=== PATIENT | male | born 1990 | race American Indian/Alaskan Native ===

== ENCOUNTER 2019-10-14 20:36 | Emergency (ER) | payer MEDICAID ==
[2019-10-14] MEDS ORDERED: cloNIDine 0.2 MG TAB PO ONE (21:00)
[2019-10-14 21:01] LABS: Basophils % (Auto) 0.6 % (0.0-1.8); Eosinophils # (Auto) 0.2 K/mm3 (0.0-0.4); Eosinophils % (Auto) 2.6 % (0.0-4.3); Hematocrit 31.7 % (35.5-45.6); Hemoglobin 10.7 gm/dl (11.8-15.2); Lymphocytes % (Auto) 12.5 % (13.4-35.0); Mean Corpuscular HGB Conc 34 % (32-34); Mean Corpuscular Volume 97 fl (84-94); Monocytes # (Auto) 0.8 K/mm3 (0.0-0.8); Monocytes % (Auto) 10.4 % (0.0-7.3); Platelet Count 175 K/mm3 (140-440); Red Blood Count 3.27 M/mm3 (3.65-5.03)
--- NOTE | 2019-10-14 21:05 | Emergency Department Report ---
ED General Adult HPI - General Chief complaint: Upper Respiratory Infection Stated complaint: COUGHING UP BLOOD Time Seen by Provider: 10/14/19 20:44 Source: patient, EMS Mode of arrival: Stretcher Limitations: No Limitations - History of Present Illness Initial comments: Mr. Trinh is a 29-year-old male with history of end-stage renal disease on hemodialysis Tuesday, pulmonary embolism, hypertension, tobacco dependence who presents with hemoptysis for several weeks. He was evaluated at [facility]. During that hospitalization he was diagnosed with pulmonary embolism. During evaluation at [place], pulmonary embolism was not seen. He was initially prescribed anticoagulation at [facility]. However this medication was discontinued for unknown reason. He plans to have intervention on pulmonary embolism on Tuesday. He is unable to name the procedure. Patient admits to being noncompliant with clonidine. He is trying to wean himself off of this medication. He notes that when he misses a dose of cl onidine that his blood pressure becomes severely elevated. He denies chest pain. He has AV fistula in the right upper extremity, Right forearm. AV fistula was removed from the left upper extremity due to previous infection. Consequently, patient states that we may insert peripheral IV access in that extremity. -: Gradual, week(s) (Several weeks) Consistency: constant Improves with: none Worsens with: none Associated Symptoms: cough, shortness of breath, other (Hemoptysis) Treatments Prior to Arrival: none - Related Data Previous Rx's Medication Instructions Recorded Last Taken Type Doxycycline Hyclate 100 mg PO BID 7 Days #14 tablet. 10/15/19 Unknown Rx Allergies Allergy/AdvReac Type Severity Reaction Status Date / Time No Known Allergies Allergy Unverified 10/14/19 20:55 ED Review of Systems ROS: Stated complaint: COUGHING UP BLOOD Other details as noted in HPI Comment: All other systems reviewed and negative Constitutional: denies: fever, malaise Respiratory: cough, shortness of breath. denies: wheezing Cardiovascular: denies: chest pain Gastrointestinal: denies: abdominal pain, nausea, vomiting ED Past Medical Hx - Past Medical History Previous Medical History?: Yes Hx Hypertension: Yes Hx Pulmonary Embolism: Yes Hx Renal Disease: Yes (Dialysys T, TH, Sat) - Surgical History Past Surgical History?: Yes Additional Surgical History: AV fistula - Family History Family history: hypertension - Social History Smoking Status: Current Every Day Smoker Substance Use Type: Marijuana - Medications Home Medications: Home Medications Medication Instructions Recorded Confirmed Last Taken Type Doxycycline Hyclate 100 mg PO BID 7 Days #14 tablet. 10/15/19 Unknown Rx ED Physical Exam - General Limitations: No Limitations General appearance: alert, in no apparent distress, other (Patient has emesis bag which contained bloody brownish sputum) - Head Head exam: Present: atraumatic, normocephalic - Eye Eye exam: Present: normal appearance - ENT ENT exam: Present: mucous membranes moist - Neck Neck exam: Present: normal inspection, full ROM - Respiratory Respiratory exam: Present: normal lung sounds bilaterally. Absent: respiratory distress, wheezes, rales, rhonchi - Cardiovascular Cardiovascular Exam: Present: normal rhythm, tachycardia. Absent: systolic murmur, diastolic murmur, rubs, gallop - GI/Abdominal GI/Abdominal exam: Present: soft, normal bowel sounds. Absent: distended, tenderness, guarding - Rectal Rectal exam: Present: deferred - Extremities Exam Extremities exam: Present: other (Right forearm: AV fistula positive thrill positive bruit,) - Neurological Exam Neurological exam: Present: alert, oriented X3 - Psychiatric Psychiatric exam: Present: normal affect, normal mood - Skin Skin exam: Present: warm, dry, intact, normal color. Absent: rash ED Course Vital Signs 10/14/19 10/14/19 10/14/19 20:49 21:13 23:20 Temperature 98.3 F Pulse Rate 110 H 104 H 108 H Respiratory 21 Rate Blood Pressure 202/128 209/154 Blood Pressure 190/138 [Left] O2 Sat by Pulse 97 Oximetry 10/14/19 23:37 Temperature Pulse Rate 89 Respiratory 15 Rate Blood Pressure Blood Pressure 196/122 [Left] O2 Sat by Pulse 98 Oximetry ED Medical Decision Making - Lab Data Result diagrams: 10/14/19 20:50 10/14/19 20:50 - Radiology Data Radiology results: report reviewed Chest radiograph 1 view: No acute cardiopulmonary abnormality CT angios chest: No CT evidence of pulmonary embolism, 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 Differential diagnosis includes: Pulmonary infarction due to PE, bronchiectasis, tuberculosis, malignancy, bronchitis, pneumonia CT angiogram of the chest did not reveal mass or infection. No pulmonary embolism to cause pulmonary infarction. I did see that patient had brownish sputum with mild hemoptysis. I strongly suspect acute bronchitis. 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 I suspect that he will have intervention at [facility] on this lesion. Mr. Trinh is discharged home. Repeat heart rate 94 bpm. Repeat blood pressure 179/110 after clonidine and labetalol. Critical care attestation.: If time is entered above; I have spent that time in minutes in the direct care of this critically ill patient, excluding procedure time. 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 Prescriptions: Doxycycline Hyclate 100 mg PO BID 7 Days #14 tablet.
--- NOTE | 2019-10-14 21:18 | XRay Report ---
CHEST 1 VIEW 10/14/2019 8:46 PM INDICATION / CLINICAL INFORMATION: hemoptysis. COMPARISON: None available. FINDINGS: SUPPORT DEVICES: None. HEART / MEDIASTINUM: No significant abnormality. LUNGS / PLEURA: No significant pulmonary or pleural abnormality. No pneumothorax. ADDITIONAL FINDINGS: No significant additional findings. IMPRESSION: No acute cardiopulmonary abnormality. Signer Name: Frankie Bishop MD Signed: 10/14/2019 9:13 PM Workstation Name: [id number]
[2019-10-14 21:32] LABS: Calcium 10.1 mg/dL (8.4-10.2)
[2019-10-14 23:37] VITALS: BP 196/122
--- NOTE | 2019-10-14 23:50 | Cat Scan Report ---
CTA CHEST WITH IV CONTRAST INDICATION / CLINICAL INFORMATION: hemoptysis dyspnea hx of pulmonary embolism. TECHNIQUE: Axial CT images were obtained through the chest after injection of 100 cc Omnipaque 350 milligrams pe rcent IV contrast. 3 plane MIP and/or 3D reconstructions were produced. All CT scans at this location are performed using CT dose reduction for ALARA by means of automated exposure control. COMPARISON: None available. FINDINGS: PULMONARY ARTERIES: Poor contrast enhancement of the pulmonary arterial system. THORACIC AORTA: No significant abnormality. HEART: No significant abnormality. CORONARY ARTERIES: No significant calcification. PLEURA: No pleural effusion. No pneumothorax. LYMPH NODES: Several enlarged lymph nodes are present involving the anterior mediastinum LUNGS: No acute air space or interstitial disease. ADDITIONAL FINDINGS: Occlusion of the superior vena cava with abundant collateral flow. Marked enlarg ement of the azygos system. UPPER ABDOMEN: Shrunken kidneys bilaterally. SKELETAL STRUCTURES: No significant osseous abnormality. IMPRESSION: 1. No CT evidence for pulmonary embolism. 2. Occlusion of the superior vena cava with abundant collateral flow Signer Name: Ag Christianson MD Signed: 10/14/2019 11:46 PM Workstation Name: [id number]
== END 2019-10-15 01:00 | disposition home or self-care (01) ==
LOC: ED 20:36
DX: I82.210 Acute embolism and thrombosis of superior vena cava (principal); J20.9 Acute bronchitis, unspecified; R04.2 Hemoptysis; I12.0 Hypertensive chronic kidney disease with stage 5 chronic kidney disease or end stage renal disease; N18.6 End stage renal disease; Z99.2 Dependence on renal dialysis; F17.200 Nicotine dependence, unspecified, uncomplicated; F12.10 Cannabis abuse, uncomplicated; Z86.711 Personal history of pulmonary embolism; Z79.01 Long term (current) use of anticoagulants
CPT/HCPCS: 36415; 71045; 71275; 80048; 85025; 96374; 99285; Q9967

== ENCOUNTER 2020-11-11 14:05 | Inpatient (IN) | payer MEDICAID ==
[2020-11-11] MEDS ORDERED: KETOROLAC 30 MG/1 ML INJ IV ONE (14:29)
[2020-11-11 15:35] LABS: Basophils # (Auto) 0.1 K/mm3 (0.0-0.1); Eosinophils # (Auto) 0.3 K/mm3 (0.0-0.4); Eosinophils % (Auto) 4.1 % (0.0-4.3); Hematocrit 22.9 % (35.5-45.6); Hemoglobin 7.8 gm/dl (11.8-15.2); Lymphocytes # (Auto) 0.9 K/mm3 (1.2-5.4); Lymphocytes % (Auto) 12.9 % (13.4-35.0); Mean Corpuscular HGB Conc 34 % (32-34); Mean Corpuscular Volume 95 fl (84-94); Monocytes # (Auto) 0.5 K/mm3 (0.0-0.8); Platelet Count 270 K/mm3 (140-440); Red Blood Count 2.43 M/mm3 (3.65-5.03); Red Cell Distribution Width 16.8 % (13.2-15.2)
[2020-11-11 15:44] LABS: INR 1.14 (0.87-1.13)
[2020-11-11 15:47] LABS: Albumin 4.2 g/dL (3.9-5); Calcium 9.9 mg/dL (8.4-10.2)
--- NOTE | 2020-11-11 16:14 | Ultrasound Report ---
SCROTAL ULTRASOUND WITH DOPPLER HISTORY: scrotal pain COMPARISON: None. TECHNIQUE: Grayscale, color and spectral Doppler images were obtained of the scrotum. FINDINGS: RIGHT: Right testicle: The right testicle demonstrates a slightly heterogeneous echotexture. Mild microlithi asis is suspected. There are a few larger calcifications measuring up to 1-2 mm. No discrete testicul ar mass. No hyperemia on color Doppler. Spectral Doppler waveforms demonstrate flow to the right test icle. Right testicular size: 4.6 x 2.0 x 2.8 cm. Right epididymis: An 8 mm epididymal head cyst versus spermatocele is identified. Right epididymal ti ssue is otherwise unremarkable. LEFT: Left testicle: The left testicle demonstrates a slightly heterogeneous echotexture. Mild microlithia sis is again suspected. No discrete mass. No hyperemia. Spectral Doppler waveforms demonstrate flow t o the left testicle. Left testicular size: 4.4 x 1.7 x 2.3 cm. Left epididymis: No significant abnormality. Additional findings: Trace bilateral hydroceles are identified. There also appears to be a small fat- containing hernia in the left inguinal canal. IMPRESSION: Slightly heterogeneous testicles with evidence of mild microlithiasis. No discrete testicular mass. N o torsion or inflammation. Right epididymal head cyst versus spermatocele. Small fat-containing left inguinal hernia. Signer Name: Bj Chaney Jr, MD Signed: 11/11/2020 4:09 PM Workstation Name: [id number]
[2020-11-11] MEDS ORDERED: DEXTROSE 50% IN WATER (25GM) 50 ML SYRINGE IV ONE (16:47)
[2020-11-11] MEDS ORDERED: INSULIN REGULAR, HUMAN 100 UNITS/1 ML IV ONE (16:47)
[2020-11-11] MEDS ORDERED: SODIUM BICARB 8.4% 50 MEQ/50 ML SYRINGE IV ONE (16:48)
--- NOTE | 2020-11-11 17:18 | Cat Scan Report ---
CT ABDOMEN AND PELVIS WITHOUT CONTRAST HISTORY: abd pain GI bleeding COMPARISON: None TECHNIQUE: Routine abdominal and pelvic CT exam performed without contrast. Lack of intravenous cont rast limits evaluation of the vascular and solid organs.. All CT scans at this location are performed using CT dose reduction for ALARA by means of automated exposure control. FINDINGS: CT ABDOMEN: Lung Bases: Lung bases are clear but there is a moderate pericardial effusion. Liver: No significant abnormality. Biliary: No significant abnormality. Spleen: No significant abnormality. Unenlarged. Pancreas: No significant abnormality. Adrenals: No significant abnormality. Kidneys: Both kidneys are atrophic with multiple cysts consistent with chronic medical renal disease. Lymphatics: No lymphadenopathy. Vasculature: No significant abnormality. Bowel/Peritoneum: No free air or obstruction. Trace free fluid in the lower abdomen. Normal appendix. CT PELVIC: : No significant abnormality. Lymphatics: No lymphadenopathy. Osseous Structures: There is diffuse heterogeneous bony sclerosis consistent with renal osteodystroph y. Additional Findings: None IMPRESSION: 1. No definite acute findings in the abdomen or pelvis. 2. Findings of chronic medical renal disease including renal osteodystrophy and bilateral atrophic ki dneys. 3. Trace abdominal ascites. 4. Moderate pericardial effusion. Signer Name: Augustus Levnie MD Signed: 11/11/2020 5:14 PM Workstation Name: [id number]
--- NOTE | 2020-11-11 17:47 | Emergency Department Report ---
ED Abdominal Pain HPI - General Chief Complaint: GI Bleed Stated Complaint: DARK STOOL Time Seen by Provider: 11/11/20 14:28 Source: EMS Mode of arrival: Stretcher Limitations: No Limitations - History of Present Illness Initial Comments: Patient is a 30-year-old F [place] male who is presenting with possible GI bleed. Patient has a history of pulmonary embolus but has not been on anticoagulation in months. Patient also has a history of end-stage renal disease. patient states over the past 2 to 3 days his stools have been very dark in color. Patient also complaining of some lower abdominal discomfort. Denies nausea vomiting. States the abdominal pain sometimes is radiates down to his scrotum and he sees some swelling and assumed he may have a hernia. Patient denies any use of blood thinners however the patient does have end-stage renal disease. Patient was last dialysis was 6 days ago. He is missed his last 2 sessions because he states there was a lot going on in his life at the time. Patient also complaining of left lower extremity pain in the thigh and calf. Pain estimated at a 6 out of 10 is worse with standing and movement better with rest. - Related Data Previous Rx's Medication Instructions Recorded Last Taken Type Doxycycline Hyclate 100 mg PO BID 7 Days #14 tablet. 10/15/19 Unknown Rx Allergies Allergy/AdvReac Type Severity Reaction Status Date / Time No Known Allergies Allergy Verified 11/11/20 14:47 ED Review of Systems ROS: Stated complaint: DARK STOOL Other details as noted in HPI Comment: All other systems reviewed and negative ED Past Medical Hx - Past Medical History Previous Medical History?: Yes Hx Hypertension: Yes Hx Pulmonary Embolism: Yes Hx Renal Disease: Yes (Dialysys T, TH, Sat) - Surgical History Additional Surgical History: AV fistula - Social History Smoking Status: Current Every Day Smoker Substance Use Type: Marijuana - Medications Home Medications: Home Medications Medication Instructions Recorded Confirmed Last Taken Type Doxycycline Hyclate 100 mg PO BID 7 Days #14 tablet. 10/15/19 Unknown Rx ED Physical Exam - General Limitations: No Limitations General appearance: alert, in no apparent distress - Head Head exam: Present: atraumatic, normocephalic - Eye Eye exam: Present: normal appearance - ENT ENT exam: Present: mucous membranes moist - Neck Neck exam: Present: normal inspection - Respiratory Respiratory exam: Present: normal lung sounds bilaterally. Absent: respiratory distress, wheezes, rales, rhonchi - Cardiovascular Cardiovascular Exam: Present: regular rate, normal rhythm, normal heart sounds. Absent: systolic murmur, diastolic murmur, rubs, gallop - GI/Abdominal GI/Abdominal exam: Present: soft, tenderness (Mild suprapubic tenderness), normal bowel sounds. Absent: distended, guarding, rebound - Rectal Rectal exam: Present: heme (+) stool, black stool - exam: Present: testicular tenderness - Extremities Exam Extremities exam: Present: normal inspection - Back Exam Back exam: Present: normal inspection - Neurological Exam Neurological exam: Present: alert, oriented X3 - Psychiatric Psychiatric exam: Present: normal affect, normal mood - Skin Skin exam: Present: warm, dry, intact, normal color. Absent: rash ED Course Vital Signs 11/11/20 11/11/20 11/11/20 14:15 14:19 14:45 Pulse Rate 90 90 Respiratory 20 Rate Blood Pressure 139/92 O2 Sat by Pulse 100 100 98 Oximetry ED Medical Decision Making - Lab Data Result diagrams: 11/11/20 14:37 11/11/20 14:37 Lab Results 11/11/20 11/11/20 11/11/20 Range/Units 14:37 14:37 15:10 WBC 7.0 (4.5-11.0) K/mm3 RBC 2.43 L (3.65-5.03) M/mm3 Hgb 7.8 L (11.8-15.2) gm/dl Hct 22.9 L (35.5-45.6) % MCV 95 H (84-94) fl MCH 32 (28-32) pg MCHC 34 (32-34) % RDW 16.8 H (13.2-15.2) % Plt Count 270 (140-440) K/mm3 Lymph % (Auto) 12.9 L (13.4-35.0) % [place] % (Auto) 7.0 (0.0-7.3) % Eos % (Auto) 4.1 (0.0-4.3) % Baso % (Auto) 1.0 (0.0-1.8) % Lymph # (Auto) 0.9 L (1.2-5.4) K/mm3 [place] # (Auto) 0.5 (0.0-0.8) K/mm3 Eos # (Auto) 0.3 (0.0-0.4) K/mm3 Baso # (Auto) 0.1 (0.0-0.1) K/mm3 Seg Neutrophils % 75.0 H (40.0-70.0) % Seg Neutrophils # 5.2 (1.8-7.7) K/mm3 PT 15.1 H (12.2-14.9) Sec. INR 1.14 H (0.87-1.13) APTT 32.0 (24.2-36.6) Sec. Sodium 138 (137-145) mmol/L Potassium 5.9 H (3.6-5.0) mmol/L Chloride 96.5 L (98-107) mmol/L Carbon Dioxide 16 L (22-30) mmol/L Anion Gap 31 mmol/L BUN 84 H (9-20) mg/dL Creatinine 32.8 H (0.8-1.3) mg/dL Estimated GFR 2 ml/min BUN/Creatinine Ratio 3 % Glucose 113 H (75-100) mg/dL Calcium 9.9 (8.4-10.2) mg/dL Total Bilirubin 0.30 (0.1-1.2) mg/dL AST 11 (5-40) units/L ALT 5 L (7-56) units/L Alkaline Phosphatase 354 H (35-129) units/L Total Protein 7.8 (6.3-8.2) g/dL Albumin 4.2 (3.9-5) g/dL Albumin/Globulin Ratio 1.2 % - Radiology Data [facility] [address] [place] [address] Cat Scan Report Signed Patient: GIOVANNA STARKS MR#: [id number] 330 : 1990 Acct:[id number] Age/Sex: 30 / M ADM Date: 11/11/20 Loc: ED Attending Dr: Ordering Physician: JUSTINA VARGAS MD Date of Service: 11/11/20 Procedure(s): CT abdomen pelvis wo con Accession Number(s): [id number] cc: JUSTINA VARGAS MD CT ABDOMEN AND PELVIS WITHOUT CONTRAST HISTORY: abd pain GI bleeding COMPARISON: None TECHNIQUE: Routine abdominal and pelvic CT exam performed without contrast. Lack of intravenous contrast limits evaluation of the vascular and solid organs.. All CT scans at this location are performed using CT dose reduction for ALARA by means of automated exposure control. FINDINGS: CT ABDOMEN: Lung Bases: Lung bases are clear but there is a moderate pericardial effusion. Liver: No significant abnormality. Biliary: No significant abnormality. Spleen: No significant abnormality. Unenlarged. Pancreas: No significant abnormality. Adrenals: No significant abnormality. Kidneys: Both kidneys are atrophic with multiple cysts consistent with chronic medical renal disease. Lymphatics: No lymphadenopathy. Vasculature: No significant abnormality. Bowel/Peritoneum: No free air or obstruction. Trace free fluid in the lower abdomen. Normal appendix. CT PELVIC: : No significant abnormality. Lymphatics: No lymphadenopathy. Osseous Structures: There is diffuse heterogeneous bony sclerosis consistent with renal osteodystrophy. Additional Findings: None IMPRESSION: 1. No definite acute findings in the abdomen or pelvis. 2. Findings of chronic medical renal disease including renal osteodystrophy and bilateral atrophic kidneys. 3. Trace abdominal ascites. 4. Moderate pericardial effusion. Signer Name: Augustus Levine MD Signed: 11/11/2020 5:14 PM Workstation Name: [id number] SCROTAL ULTRASOUND WITH DOPPLER HISTORY: scrotal pain COMPARISON: None. TECHNIQUE: Grayscale, color and spectral Doppler images were obtained of the scrotum. FINDINGS: RIGHT: Right testicle: The right testicle demonstrates a slightly heterogeneous echotexture. Mild microlithiasis is suspected. There are a few larger calcifications measuring up to 1-2 mm. No discrete testicular mass. No hyperemia on color Doppler. Spectral Doppler waveforms demonstrate flow to the right testicle. Right testicular size: 4.6 x 2.0 x 2.8 cm. Right epididymis: An 8 mm epididymal head cyst versus spermatocele is iden tified. Right epididymal tissue is otherwise unremarkable. LEFT: Left testicle: The left testicle demonstrates a slightly heterogeneous echotexture. Mild microlithiasis is again suspected. No discrete mass. No hyperemia. Spectral Doppler waveforms demonstrate flow to the left testicle. Left testicular size: 4.4 x 1.7 x 2.3 cm. Left epididymis: No significant abnormality. Additional findings: Trace bilateral hydroceles are identified. There also appears to be a small fat-containing hernia in the left inguinal canal. IMPRESSION: Slightly heterogeneous testicles with evidence of mild microlithiasis. No discrete testicular mass. No torsion or inflammation. Right epididymal head cyst versus spermatocele. Small fat-containing left inguinal hernia. - Medical Decision Making Patient is a 30-year-old F [place] male who is presenting with dark-colored stools. Patient is guaiac positive. Hemoglobin is decreased from his baseline. Will admit the patient for consultation with GI. Additionally the patient is has missed his last 2 dialysis sessions. Potassium is elevated. Patient given bicarb insulin D50. Patient will need to be admitted for dialysis. He does have some evidence of ascites in his abdomen. Critical care attestation.: If time is entered above; I have spent that time in minutes in the direct care of this critically ill patient, excluding procedure time. ED Disposition Clinical Impression: GI bleed, Anemia, Hyperkalemia, End-stage renal disease needing dialysis Disposition: ADMITTED INPATIENT Is pt being admited?: Yes Does the pt Need Aspirin: No Condition: Stable Time of Disposition: 17:49
--- NOTE | 2020-11-11 18:26 | Vascular Lab Report ---
DUPLEX DOPPLER LOWER EXTREMITY VEINS, LEFT INDICATION / CLINICAL INFORMATION: leg pain. TECHNIQUE: Duplex doppler imaging was performed through the veins of the left lower extremity using venous compr ession and other maneuvers. COMPARISON: None available. FINDINGS: LEFT COMMON FEMORAL VEIN: Negative. LEFT FEMORAL VEIN: Negative. LEFT POPLITEAL VEIN: Negative. LEFT CALF VEINS: Negative. ADDITIONAL FINDINGS: None. IMPRESSION: 1. No sonographic evidence for DVT in the left lower extremity. Signer Name: Augustus Levine MD Signed: 11/11/2020 6:22 PM Workstation Name: [id number]
[2020-11-11] MEDS ORDERED: METOCLOPRAMIDE 10 MG/2 ML INJ IV PRN (22:14)
[2020-11-11] MEDS ORDERED: MORPHINE 2 MG/1 ML INJ IV PRN (22:14)
[2020-11-11] MEDS ORDERED: ONDANSETRON 4 MG/2 ML INJ IV PRN (22:14)
--- NOTE | 2020-11-11 22:21 | History and Physical Report ---
History of Present Illness Date of examination: 11/11/20 Date of admission: 11/11/20 17:50 Chief complaint: Lower GI bleed for 1 day History of present illness: Patient is a 30-year-old F Portuguese male who is presenting with possible GI bleed. Patient has a history of pulmonary embolus but has not been on anticoagulation in months. Patient also has a history of end-stage renal disease. patient states over the past 2 to 3 days his stools have been very dark in color. Patient also complaining of some lower abdominal discomfort. Denies nausea vomiting. States the abdominal pain sometimes is radiates down to his scrotum and he sees some swelling and assumed he may have a hernia. Patient denies any use of blood thinners however the patient does have end-stage renal disease. Patient was last dialysis was 6 days ago. He is missed his last 2 sessions because he states there was a lot going on in his life at the time. Patient also complaining of left lower extremity pain in the thigh and calf. Pain estimated at a 6 out of 10 is worse with standing and movement better with rest. - Past Medical History --Previous Medical History?: Yes --Hypertension: Yes --Pulmonary Embolism: Yes --Renal Disease: Yes (Dialysys T, TH, Sat) - Surgical History Additional Surgical History: AV fistula - Social History --Smoking Status: Current Every Day Smoker --Substance Use Type: Marijuana - Medications Home Medications: Home Medications Medication Instructions Recorded Confirmed Last Taken Type Doxycycline Hyclate 100 mg PO BID 7 Days #14 tablet. 10/15/19 Unknown Rx Review of Systems ROS: Stated complaint: DARK STOOL Other details as noted in HPI Comment: All other systems reviewed and negative Medications and Allergies Allergies Allergy/AdvReac Type Severity Reaction Status Date / Time No Known Allergies Allergy Verified 11/11/20 14:47 Home Medications Medication Instructions Recorded Confirmed Last Taken Type Doxycycline Hyclate 100 mg PO BID 7 Days #14 tablet. 10/15/19 Unknown Rx Exam - Constitutional Vitals: Temp Pulse Resp BP Pulse Ox 98.3 F 90 20 156/106 71 L 11/11/20 14:19 11/11/20 14:19 11/11/20 14:19 11/11/20 20:01 11/11/20 20:01 General appearance: Present: no acute distress, well-nourished - EENT Eyes: Present: PERRL ENT: hearing intact, clear oral mucosa - Neck Neck: Present: supple, normal ROM - Respiratory Respiratory effort: normal Respiratory: bilateral: CTA - Cardiovascular Heart rate: 78 Rhythm: regular Heart Sounds: Present: S1 & S2. Absent: rub, click - Extremities Extremities: no ischemia, pulses symmetrical, No edema Peripheral Pulses: within normal limits - Abdominal General gastrointestinal: Present: soft, non-tender, non-distended, normal bowel sounds Male genitourinary: Present: normal - Rectal Rectal Exam: stool dark (Occult blood positive) - Integumentary Integumentary: Present: clear, warm, dry - Musculoskeletal Musculoskeletal: gait normal, strength equal bilaterally - Psychiatric Psychiatric: appropriate mood/affect, intact judgment & insight - Neurologic Neurologic: CNII-XII intact, moves all extremities Results - Labs CBC & Chem 7: 11/12/20 05:21 11/12/20 05:21 Labs: Laboratory Last Values WBC 7.0 K/mm3 (4.5-11.0) 11/11/20 14:37 RBC 2.43 M/mm3 (3.65-5.03) L 11/11/20 14:37 Hgb 7.8 gm/dl (11.8-15.2) L 11/11/20 14:37 Hct 22.9 % (35.5-45.6) L 11/11/20 14:37 MCV 95 fl (84-94) H 11/11/20 14:37 MCH 32 pg (28-32) 11/11/20 14:37 MCHC 34 % (32-34) 11/11/20 14:37 RDW 16.8 % (13.2-15.2) H 11/11/20 14:37 Plt Count 270 K/mm3 (140-440) 11/11/20 14:37 Lymph % (Auto) 12.9 % (13.4-35.0) L 11/11/20 14:37 [place] % (Auto) 7.0 % (0.0-7.3) 11/11/20 14:37 Eos % (Auto) 4.1 % (0.0-4.3) 11/11/20 14:37 Baso % (Auto) 1.0 % (0.0-1.8) 11/11/20 14:37 Lymph # (Auto) 0.9 K/mm3 (1.2-5.4) L 11/11/20 14:37 [place] # (Auto) 0.5 K/mm3 (0.0-0.8) 11/11/20 14:37 Eos # (Auto) 0.3 K/mm3 (0.0-0.4) 11/11/20 14:37 Baso # (Auto) 0.1 K/mm3 (0.0-0.1) 11/11/20 14:37 Seg Neutrophils % 75.0 % (40.0-70.0) H 11/11/20 14:37 Seg Neutrophils # 5.2 K/mm3 (1.8-7.7) 11/11/20 14:37 PT 15.1 Sec. (12.2-14.9) H 11/11/20 15:10 INR 1.14 (0.87-1.13) H 11/11/20 15:10 APTT 32.0 Sec. (24.2-36.6) 11/11/20 15:10 Sodium 138 mmol/L (137-145) 11/11/20 14:37 Potassium 5.9 mmol/L (3.6-5.0) H 11/11/20 14:37 Chloride 96.5 mmol/L (98-107) L 11/11/20 14:37 Carbon Dioxide 16 mmol/L (22-30) L 11/11/20 14:37 Anion Gap 31 mmol/L 11/11/20 14:37 BUN 84 mg/dL (9-20) H 11/11/20 14:37 Creatinine 32.8 mg/dL (0.8-1.3) H 11/11/20 14:37 Estimated GFR 2 ml/min 11/11/20 14:37 BUN/Creatinine Ratio 3 % 11/11/20 14:37 Glucose 113 mg/dL (75-100) H 11/11/20 14:37 POC Glucose 77 mg/dL (70-105) 11/11/20 18:48 Calcium 9.9 mg/dL (8.4-10.2) 11/11/20 14:37 Total Bilirubin 0.30 mg/dL (0.1-1.2) 11/11/20 14:37 AST 11 units/L (5-40) 11/11/20 14:37 ALT 5 units/L (7-56) L 11/11/20 14:37 Alkaline Phosphatase 354 units/L (35-129) H 11/11/20 14:37 Total Protein 7.8 g/dL (6.3-8.2) 11/11/20 14:37 Albumin 4.2 g/dL (3.9-5) 11/11/20 14:37 Albumin/Globulin Ratio 1.2 % 11/11/20 14:37 Short CBC 11/11/20 11/11/20 11/12/20 Range/Units 14:37 22:59 05:21 WBC 7.0 7.2 (4.5-11.0) K/mm3 Hgb 7.8 L 7.3 L 6.7 L (11.8-15.2) gm/dl Hct 22.9 L 21.8 L 20.4 L (35.5-45.6) % Plt Count 270 249 (140-440) K/mm3 BMP 11/11/20 11/12/20 14:37 05:21 Sodium 138 138 Potassium 5.9 H 6.8 H* Chloride 96.5 L 97.2 L Carbon Dioxide 16 L 16 L BUN 84 H 91 H Creatinine 32.8 H 37.5 H Glucose 113 H 84 Calcium 9.9 9.4 Liver Function 11/11/20 11/12/20 Range/Units 14:37 05:21 Total Bilirubin 0.30 0.30 (0.1-1.2) mg/dL AST 11 8 (5-40) units/L ALT 5 L < 5 L (7-56) units/L Alkaline Phosphatase 354 H 330 H (35-129) units/L Albumin 4.2 3.5 L (3.9-5) g/dL Urine 11/11/20 Range/Units Unknown Urine Color Straw (Yellow) Urine pH 6.0 (5.0-7.0) Ur Specific [place] 1.020 (1.003-1.030) Urine Protein 30 mg/dl (Negative) mg/dL Urine Glucose (UA) >=500 (Negative) mg/dL - Imaging and Cardiology Imaging and Cardiology: CT of the abdomen no acute findings Chronic medical renal disease including renal osteodystrophy and bilateral atrophic kidneys Trace abdominal ascites Moderate pericardial effusion Testicular ultrasound No torsion or inflammation Duplex lower extremities No sonographic evidence for DVT in the left lower extremity Assessment and Plan Advance Directives: Yes (Full code) VTE prophylaxis?: Mechanical Plan of care discussed with patient/family: Yes - Patient Problems (1) GI bleed Current Visit: Yes Status: Acute Plan to address problem: Melanotic stools Possible upper GI bleed Serial hemoglobin and hematocrit Transfuse if H&H is less than 7 and 21 IV Protonix initiated (2) Hyperkalemia Current Visit: Yes Status: Acute Plan to address problem: Treated in the emergency room (3) End-stage renal disease needing dialysis Current Visit: Yes Status: Chronic Plan to address problem: Hemodialysis today and alternate days (4) History of pulmonary embolism Current Visit: Yes Status: Chronic Plan to address problem: Not on any blood thinners (5) DVT prophylaxis Current Visit: Yes Status: Acute Plan to address problem: SCDs and GI prophylaxis
[2020-11-11 23:32] LABS: Bilirubin,Urine NEG (Negative); Blood,Urine LG (Negative); Color,Urine Straw (Yellow); Mucus,Urine FEW /HPF; Urobilinogen,Urine < 2.0 mg/dL (<2.0)
[2020-11-11 23:35] LABS: Hematocrit 21.8 % (35.5-45.6); Hemoglobin 7.3 gm/dl (11.8-15.2)
[2020-11-12] MEDS: PANTOPRAZOLE 40 MG INJ IV SCH ×3 (00:52→21:03)
[2020-11-12 06:22] LABS: Basophils # (Auto) 0.1 K/mm3 (0.0-0.1); Basophils % (Auto) 0.8 % (0.0-1.8); Eosinophils # (Auto) 0.4 K/mm3 (0.0-0.4); Hematocrit 20.4 % (35.5-45.6); Hemoglobin 6.7 gm/dl (11.8-15.2); Lymphocytes # (Auto) 0.8 K/mm3 (1.2-5.4); Lymphocytes % (Auto) 10.6 % (13.4-35.0); Mean Corpuscular HGB Conc 33 % (32-34); Mean Corpuscular Volume 95 fl (84-94); Monocytes # (Auto) 0.5 K/mm3 (0.0-0.8); Monocytes % (Auto) 7.2 % (0.0-7.3); Platelet Count 249 K/mm3 (140-440); Red Blood Count 2.15 M/mm3 (3.65-5.03); Red Cell Distribution Width 16.7 % (13.2-15.2)
[2020-11-12 06:41] LABS: Albumin 3.5 g/dL (3.9-5); Blood Urea Nitrogen 91 mg/dL (9-20); Calcium 9.4 mg/dL (8.4-10.2); Hemolysis Index 15
[2020-11-12 06:42] LABS: Alanine Aminotransferase < 5 units/L (7-56)
[2020-11-12 06:55] LABS: BUN/Creatinine Ratio 2
[2020-11-12] MEDS ORDERED: SODIUM BICARB 8.4% 50 MEQ/50 ML SYRINGE IV NR (07:13)
[2020-11-12] MEDS ORDERED: INSULIN REGULAR, HUMAN 100 UNITS/1 ML IV STA (07:24)
[2020-11-12] MEDS ORDERED: DEXTROSE 50% IN WATER (25GM) 50 ML VIAL IV STA (07:25)
[2020-11-12] MEDS: HYDROmorphone 1 MG/1 ML INJ IV PRN ×3 (07:38→21:05)
--- NOTE | 2020-11-12 07:51 | Event Note ---
Date: 11/12/[address] Saavedra about consult mentioned Potassium 6.8 needing urgent dialysis. He will arrange dialysis.
--- NOTE | 2020-11-12 07:53 | Gastroenterology Consultation ---
History of Present Illness - Reason for Consult Consult date: 11/12/20 GI Bleed Requesting physician: DIMPLE HOLT - History of Present Illness This is a pleasant 30-year-old male who is presenting with possible GI bleed. He is sleepy when I spoke with him but easily arousable Patient has a history of pulmonary embolus but has not been on anticoagulation in months. Patient also has a history of end-stage renal disease. . Patient also complaining of abdominal pain, epigastric radiates down, moderate, intermittant, duration weeks, associated with melena x 2 weeks some lower abdominal discomfort. Denies nausea vomiting. States the abdominal pain sometimes is radiates down to his scrotum and he sees some swelling and assumed he may have a hernia. Patient denies any use of blood thinners however the patient does have end-stage renal disease. Patient was last dialysis was 6 days ago. He is missed his last 2 sessions because he states there was a lot going on in his life at the time. Patient also complaining of left lower extremity pain in the thigh and calf. Pain estimated at a 6 out of 10 is worse with standing and movement better with rest. due to this has been taking OTC NSAIDS repeatedly - Past Medical History --Previous Medical History?: Yes --Hypertension: Yes --Pulmonary Embolism: Yes --Renal Disease: Yes (Dialysys T, TH, Sat) - Surgical History Additional Surgical History: AV fistula - Social History --Smoking Status: Current Every Day Smoker --Substance Use Type: Marijuana Obtained/updated/reviewed patient's current medications Medications and Allergies Allergies Allergy/AdvReac Type Severity Reaction Status Date / Time No Known Allergies Allergy Verified 11/11/20 14:47 Home Medications Medication Instructions Recorded Confirmed Last Taken Type Doxycycline Hyclate 100 mg PO BID 7 Days #14 tablet. 10/15/19 Unknown Rx Active Meds: Active Medications Acetaminophen (Acetaminophen 325 Mg Tab) 650 mg PO Q4H PRN PRN Reason: Pain MILD(1-3)/Fever >100.5/RUANO Hydromorphone HCl (Hydromorphone 1 Mg/1 Ml Inj) 0.5 mg IV Q3H PRN PRN Reason: Pain , Severe (7-10) Last Admin: 11/12/20 07:38 Dose: 0.5 mg Documented by: Calcium Gluconate 2,000 mg/ (Sodium Chloride) 120 mls @ 660 mls/hr IV ONCE@0800 NR Stop: 11/12/20 09:00 Sodium Chloride (Nacl 0.9% 500 Ml) 500 mls @ 0 mls/hr IV ONCE@0800 NR Stop: 11/12/20 20:00 Metoclopramide HCl (Metoclopramide 10 Mg/2 Ml Inj) 5 mg IV Q6H PRN PRN Reason: Nausea And Vomiting Morphine Sulfate (Morphine 2 Mg/1 Ml Inj) 2 mg IV Q4H PRN PRN Reason: Pain, Moderate (4-6) Last Admin: 11/12/20 05:32 Dose: 2 mg Documented by: Ondansetron HCl (Ondansetron 4 Mg/2 Ml Inj) 4 mg IV Q8H PRN PRN Reason: Nausea And Vomiting Pantoprazole Sodium (Pantoprazole 40 Mg Inj) 40 mg IV BID [facility] Last Admin: 11/12/20 00:52 Dose: 40 mg Documented by: Sodium Bicarbonate (Sodium Bicarb 8.4% 50 Meq/50 Ml Syringe) 50 meq IV ONCE NR Stop: 11/12/20 09:00 Sodium Chloride (Sodium Chloride 0.9% 10 Ml Flush Syringe) 10 ml IV BID [facility] Last Admin: 11/12/20 00:10 Dose: 10 ml Documented by: Sodium Chloride (Sodium Chloride 0.9% 10 Ml Flush Syringe) 10 ml IV PRN PRN PRN Reason: LINE FLUSH Review of Systems - Review of Systems All systems: negative (10 Systems reviewed and negative except as mentioned above in the history of present illness) Exam - Constitutional Vital Signs: Temp Pulse Resp BP Pulse Ox 98.3 F 90 20 157/109 95 11/11/20 14:19 11/11/20 14:19 11/12/20 05:32 11/12/20 07:15 11/12/20 07:15 General appearance: no acute distress - EENT Eyes: EOM intact ENT: hearing intact - Neck Neck: supple - Respiratory Respiratory effort: normal - Cardiovascular Rhythm: regular - Gastrointestinal General gastrointestinal: Present: soft, tender - Integumentary Integumentary: Present: dry - Musculoskeletal Musculoskeletal: normal - Neurologic Neurological: alert and oriented x3 - Psychiatric Psychiatric: depressed - Labs CBC & Chem 7: 11/12/20 05:21 11/12/20 05:21 Lab Results: Laboratory Results - last 24 hr 11/11/20 11/11/20 11/11/20 14:37 14:37 15:10 WBC 7.0 RBC 2.43 L Hgb 7.8 L Hct 22.9 L MCV 95 H MCH 32 MCHC 34 RDW 16.8 H Plt Count 270 Lymph % (Auto) 12.9 L [place] % (Auto) 7.0 Eos % (Auto) 4.1 Baso % (Auto) 1.0 Lymph # (Auto) 0.9 L [place] # (Auto) 0.5 Eos # (Auto) 0.3 Baso # (Auto) 0.1 Seg Neutrophils % 75.0 H Seg Neutrophils # 5.2 PT 15.1 H INR 1.14 H APTT 32.0 Sodium 138 Potassium 5.9 H Chloride 96.5 L Carbon Dioxide 16 L Anion Gap 31 BUN 84 H Creatinine 32.8 H Estimated GFR 2 BUN/Creatinine Ratio 3 Glucose 113 H POC Glucose Calcium 9.9 Total Bilirubin 0.30 AST 11 ALT 5 L Alkaline Phosphatase 354 H Total Protein 7.8 Albumin 4.2 Albumin/Globulin Ratio 1.2 Urine Color Urine Turbidity Urine pH Ur Specific [place] Urine Protein Urine Glucose (UA) Urine Ketones Urine Blood Urine Nitrite Urine Bilirubin Urine Urobilinogen Ur Leukocyte Esterase Urine WBC (Auto) Urine RBC (Auto) U Epithel Cells (Auto) Urine Mucus 11/11/20 11/11/20 11/11/20 18:10 18:48 22:59 WBC RBC Hgb 7.3 L Hct 21.8 L MCV MCH MCHC RDW Plt Count Lymph % (Auto) [place] % (Auto) Eos % (Auto) Baso % (Auto) Lymph # (Auto) [place] # (Auto) Eos # (Auto) Baso # (Auto) Seg Neutrophils % Seg Neutrophils # PT INR APTT Sodium Potassium Chloride Carbon Dioxide Anion Gap BUN Creatinine Estimated GFR BUN/Creatinine Ratio Glucose POC Glucose 90 77 Calcium Total Bilirubin AST ALT Alkaline Phosphatase Total Protein Albumin Albumin/Globulin Ratio Urine Color Urine Turbidity Urine pH Ur Specific [place] Urine Protein Urine Glucose (UA) Urine Ketones Urine Blood Urine Nitrite Urine Bilirubin Urine Urobilinogen Ur Leukocyte Esterase Urine WBC (Auto) Urine RBC (Auto) U Epithel Cells (Auto) Urine Mucus 11/11/20 11/12/20 11/12/20 Unknown 05:21 05:21 WBC 7.2 RBC 2.15 L Hgb 6.7 L Hct 20.4 L MCV 95 H MCH 31 MCHC 33 RDW 16.7 H Plt Count 249 Lymph % (Auto) 10.6 L [place] % (Auto) 7.2 Eos % (Auto) 5.0 H Baso % (Auto) 0.8 Lymph # (Auto) 0.8 L [place] # (Auto) 0.5 Eos # (Auto) 0.4 Baso # (Auto) 0.1 Seg Neutrophils % 76.4 H Seg Neutrophils # 5.5 PT INR APTT Sodium 138 Potassium 6.8 H* Chloride 97.2 L Carbon Dioxide 16 L Anion Gap 32 BUN 91 H Creatinine 37.5 H Estimated GFR 2 BUN/Creatinine Ratio 2 Glucose 84 POC Glucose Calcium 9.4 Total Bilirubin 0.30 AST 8 ALT < 5 L Alkaline Phosphatase 330 H Total Protein 7.1 Albumin 3.5 L Albumin/Globulin Ratio 1.0 Urine Color Straw Urine Turbidity Clear Urine pH 6.0 Ur Specific [place] 1.020 Urine Protein 30 mg/dl Urine Glucose (UA) >=500 Urine Ketones 80 Urine Blood Lg Urine Nitrite Neg Urine Bilirubin Neg Urine Urobilinogen < 2.0 Ur Leukocyte Esterase Sm Urine WBC (Auto) 68.0 H Urine RBC (Auto) 19.0 U Epithel Cells (Auto) 1.0 Urine Mucus Few Assessment and Plan History and exam and presentation consistent with upper GI bleed most likely PUD due to NSAID use. AVM, malignancy, etc lower on DDx patient needs PRBC transfusion to get Hgb over 7, and correction of electrolyte abnormalities, and then EGD (that will need to happen tomorrow to allow enough time for the above) from GI perspective patient may be on clears today, BID PPI and NPO past midnight for EGD tomorrow - Patient Problems (1) Anemia Current Visit: Yes Status: Acute (2) GI bleed Current Visit: Yes Status: Acute (3) Hyperkalemia Current Visit: Yes Status: Acute (4) End-stage renal disease needing dialysis Current Visit: Yes Status: Chronic
[2020-11-12] MEDS ORDERED: CALCIUM GLUCONATE 2,000 MG in SODIUM CHLORIDE 0.9% 100 ML IV NR (08:00)
[2020-11-12] MEDS ORDERED: DEXTROSE 50% IN WATER (25GM) 50 ML SYRINGE IV NR (08:00)
[2020-11-12] MEDS ORDERED: SODIUM CHLORIDE 0.9% 500 ML 500 ML IV NR (08:00)
[2020-11-12] MEDS ORDERED: SODIUM CHLORIDE 0.9% 100 ML IV PRN (08:20)
[2020-11-12] MEDS: SODIUM POLYSTYRENE 15 GM/60 ML ORAL LIQD PO STA ×2 (08:59→09:41)
--- NOTE | 2020-11-12 09:15 | Consultation ---
History of Present Illness - Reason for Consult Consult date: 11/12/20 end stage renal disease Requesting physician: DIMPLE HOLT - History of Present Illness This is a 30 yo M with past medical history of hypertension, ESRD on HD (at [facility]), h/o pulmonary embolism, currently not on anticoagulation, who presents to ER with dark BMs along with lower abdominal discomfort. Denies nausea vomiting. States the abdominal pain sometimes is radiates down to his scrotum and he sees some swelling . Pt states that he missed 2 HD treatments due to personal issues. patient is admitted for further GI evaluation. Labs showed significant anemia with Hb at 6.7, hyperkalemia with K at 6.8 along with metabolic acidosis (Co2 16), renal consult is requested for management of ESRD/HD. Past History Past Medical History: hypertension, pulmonary embolism, renal failure Past Surgical History: Other (AVF placement ) Social history: no significant social history Family history: no significant family history Medications and Allergies Allergies Allergy/AdvReac Type Severity Reaction Status Date / Time No Known Allergies Allergy Verified 11/11/20 14:47 Home Medications Medication Instructions Recorded Confirmed Last Taken Type Doxycycline Hyclate 100 mg PO BID 7 Days #14 tablet. 10/15/19 Unknown Rx Active Meds: Active Medications Acetaminophen (Acetaminophen 325 Mg Tab) 650 mg PO Q4H PRN PRN Reason: Pain MILD(1-3)/Fever >100.5/RUANO Hydromorphone HCl (Hydromorphone 1 Mg/1 Ml Inj) 0.5 mg IV Q3H PRN PRN Reason: Pain , Severe (7-10) Last Admin: 11/12/20 07:38 Dose: 0.5 mg Documented by: Sodium Chloride (Nacl 0.9% 500 Ml) 500 mls @ 0 mls/hr IV ONCE@0800 NR Stop: 11/12/20 20:00 Sodium Chloride (Nacl 0.9%) 100 mls @ 999 mls/hr IV LAMINE PRN PRN Reason: Hypotension Metoclopramide HCl (Metoclopramide 10 Mg/2 Ml Inj) 5 mg IV Q6H PRN PRN Reason: Nausea And Vomiting Morphine Sulfate (Morphine 2 Mg/1 Ml Inj) 2 mg IV Q4H PRN PRN Reason: Pain, Moderate (4-6) Last Admin: 11/12/20 05:32 Dose: 2 mg Documented by: Ondansetron HCl (Ondansetron 4 Mg/2 Ml Inj) 4 mg IV Q8H PRN PRN Reason: Nausea And Vomiting Pantoprazole Sodium (Pantoprazole 40 Mg Inj) 40 mg IV BID [facility] Last Admin: 11/12/20 00:52 Dose: 40 mg Documented by: Sodium Chloride (Sodium Chloride 0.9% 10 Ml Flush Syringe) 10 ml IV BID [facility] Last Admin: 11/12/20 00:10 Dose: 10 ml Documented by: Sodium Chloride (Sodium Chloride 0.9% 10 Ml Flush Syringe) 10 ml IV PRN PRN PRN Reason: LINE FLUSH Review of Systems Constitutional: weakness, malaise, lethargy Gastrointestinal: abdominal pain, nausea, vomiting, melena Exam - Vital Signs Vital signs: Vital Signs Pulse Pulse Ox 90 100 11/11/20 14:15 11/11/20 14:15 - General Appearance General appearance: well-developed, well-nourished, appears stated age EENT: ATNC, PERRL, mucous membranes moist Neck: Present: neck supple Respiratory: Clear to Ascultation Heart: regular, S1S2 Gastrointestinal: Present: normoactive bowel sounds Integumentary: no rash, other (no edema, RUE AVF with + thrill/bruit ) Neurologic: no focal deficit, alert and oriented x3, strength 5/5, CN 3-12 intact Psychiatric: mood/affect appropriate, cooperative Results - Lab Results 11/12/20 05:21 11/12/20 05:21 Most recent lab results Calcium 9.4 mg/dL (8.4-10.2) 11/12/20 05:21 Assessment and Plan - Patient Problems (1) Hyperkalemia Current Visit: Yes Status: Acute Plan to address problem: s/p medical treatment, arranged HD for correction of hyperkalemia using 1K bath first hour then 2K bath. cont 2g K renal diet (2) End-stage renal disease needing dialysis Current Visit: Yes Status: Chronic Plan to address problem: cont HD on MWF schedule while inpatient (3) Anemia Current Visit: Yes Status: Acute Plan to address problem: work up as per GI. will start EPO with HD (4) GI bleed Current Visit: Yes Status: Acute Plan to address problem: Follow GI recommendations
--- NOTE | 2020-11-12 09:28 | Progress Note ---
Assessment and Plan Assessment and plan: (1) GI bleed Current Visit: Yes Status: Acute Plan to address problem: Melanotic stools Possible upper GI bleed Serial hemoglobin and hematocrit Transfuse if H&H is less than 7 and 21 IV Protonix initiated (2) Hyperkalemia Current Visit: Yes Status: Acute Plan to address problem: Treated in the emergency room Hypertensive urgency Anemia due to GI bleed (3) End-stage renal disease needing dialysis Current Visit: Yes Status: Chronic Plan to address problem: Hemodialysis today and alternate days (4) History of pulmonary embolism Current Visit: Yes Status: Chronic Plan to address problem: Not on any blood thinners (5) DVT prophylaxis Current Visit: Yes Status: Acute Plan to address problem: SCDs and GI prophylaxis 11/12/20 Patient with ESRD on hemodialysis. Now with melena. He was admitted, evaluated by GI and Nephrology. Hyperkalemia with Potassium 6.8. Gave Insulin, Kayexalate, calcium. Dialysis today Anemia due to GI bleed. Hgb 6.7. Transfuse 1 Unit PRBC GI bleed. He was seen by GI. For EGD prob tomorrow Hypertensive urgency. Start Amlodipine , Hydralazine History Interval history: Dark stools Missed dialysis 6 days Hospitalist Physical - Physical exam Narrative exam: Gen: Not in acute distress, lying in bed HEENT: Normocephalic, atraumatic Lungs: Clear to auscultation Heart: S1 and S2 reg, no murmurs, rubs or gallop Abd:soft, non-tender, non distended, normal bowel sounds Ext: No edema, clubbing or cyanosis Neuro: Awake, alert, oriented X 3, moves all extremities - Constitutional Vitals: Temp Pulse Resp BP Pulse Ox 98.1 F 90 18 182/119 96 11/12/20 08:03 11/11/20 14:19 11/12/20 08:03 11/12/20 08:03 11/12/20 07:31 General appearance: Present: no acute distress, well-nourished Results - Labs CBC & Chem 7: 11/12/20 05:21 11/12/20 05:21 Labs: Laboratory Last Values WBC 7.2 K/mm3 (4.5-11.0) 11/12/20 05:21 RBC 2.15 M/mm3 (3.65-5.03) L 11/12/20 05:21 Hgb 6.7 gm/dl (11.8-15.2) L 11/12/20 05:21 Hct 20.4 % (35.5-45.6) L 11/12/20 05:21 MCV 95 fl (84-94) H 11/12/20 05:21 MCH 31 pg (28-32) 11/12/20 05:21 MCHC 33 % (32-34) 11/12/20 05:21 RDW 16.7 % (13.2-15.2) H 11/12/20 05:21 Plt Count 249 K/mm3 (140-440) 11/12/20 05:21 Lymph % (Auto) 10.6 % (13.4-35.0) L 11/12/20 05:21 [place] % (Auto) 7.2 % (0.0-7.3) 11/12/20 05:21 Eos % (Auto) 5.0 % (0.0-4.3) H 11/12/20 05:21 Baso % (Auto) 0.8 % (0.0-1.8) 11/12/20 05:21 Lymph # (Auto) 0.8 K/mm3 (1.2-5.4) L 11/12/20 05:21 [place] # (Auto) 0.5 K/mm3 (0.0-0.8) 11/12/20 05:21 Eos # (Auto) 0.4 K/mm3 (0.0-0.4) 11/12/20 05:21 Baso # (Auto) 0.1 K/mm3 (0.0-0.1) 11/12/20 05:21 Seg Neutrophils % 76.4 % (40.0-70.0) H 11/12/20 05:21 Seg Neutrophils # 5.5 K/mm3 (1.8-7.7) 11/12/20 05:21 PT 15.1 Sec. (12.2-14.9) H 11/11/20 15:10 INR 1.14 (0.87-1.13) H 11/11/20 15:10 APTT 32.0 Sec. (24.2-36.6) 11/11/20 15:10 Sodium 138 mmol/L (137-145) 11/12/20 05:21 Potassium 6.8 mmol/L (3.6-5.0) H* 11/12/20 05:21 Chloride 97.2 mmol/L (98-107) L 11/12/20 05:21 Carbon Dioxide 16 mmol/L (22-30) L 11/12/20 05:21 Anion Gap 32 mmol/L 11/12/20 05:21 BUN 91 mg/dL (9-20) H 11/12/20 05:21 Creatinine 37.5 mg/dL (0.8-1.3) H 11/12/20 05:21 Estimated GFR 2 ml/min 11/12/20 05:21 BUN/Creatinine Ratio 2 % 11/12/20 05:21 Glucose 84 mg/dL (75-100) 11/12/20 05:21 POC Glucose 77 mg/dL (70-105) 11/11/20 18:48 Calcium 9.4 mg/dL (8.4-10.2) 11/12/20 05:21 Total Bilirubin 0.30 mg/dL (0.1-1.2) 11/12/20 05:21 AST 8 units/L (5-40) 11/12/20 05:21 ALT < 5 units/L (7-56) L 11/12/20 05:21 Alkaline Phosphatase 330 units/L (35-129) H 11/12/20 05:21 Total Protein 7.1 g/dL (6.3-8.2) 11/12/20 05:21 Albumin 3.5 g/dL (3.9-5) L 11/12/20 05:21 Albumin/Globulin Ratio 1.0 % 11/12/20 05:21 Urine Color Straw (Yellow) 11/11/20 Unknown Urine Turbidity Clear (Clear) 11/11/20 Unknown Urine pH 6.0 (5.0-7.0) 11/11/20 Unknown Ur Specific [place] 1.020 (1.003-1.030) 11/11/20 Unknown Urine Protein 30 mg/dl mg/dL (Negative) 11/11/20 Unknown Urine Glucose (UA) >=500 mg/dL (Negative) 11/11/20 Unknown Urine Ketones 80 mg/dL (Negative) 11/11/20 Unknown Urine Blood Lg (Negative) 11/11/20 Unknown Urine Nitrite Neg (Negative) 11/11/20 Unknown Urine Bilirubin Neg (Negative) 11/11/20 Unknown Urine Urobilinogen < 2.0 mg/dL (<2.0) 11/11/20 Unknown Ur Leukocyte Esterase Sm (Negative) 11/11/20 Unknown Urine WBC (Auto) 68.0 /HPF (0.0-6.0) H 11/11/20 Unknown Urine RBC (Auto) 19.0 /HPF (0.0-6.0) 11/11/20 Unknown U Epithel Cells (Auto) 1.0 /HPF (0-13.0) 11/11/20 Unknown Urine Mucus Few /HPF 11/11/20 Unknown Active Medications - Current Medications Current Medications: Generic Name Dose Route Start Last Admin Trade Name Freq PRN Reason Stop Dose Admin Acetaminophen 650 mg 11/11/20 22:14 Acetaminophen 325 Mg Tab PO Q4H PRN Pain MILD(1-3)/Fever >100.5/RUANO Hydromorphone HCl 0.5 mg 11/11/20 22:14 11/12/20 07:38 Hydromorphone 1 Mg/1 Ml Inj IV 0.5 mg Q3H PRN Administration Pain , Severe (7-10) Sodium Chloride 500 mls @ 0 mls/hr 11/12/20 08:00 Nacl 0.9% 500 Ml IV 11/12/20 20:00 ONCE@0800 NR As Directed Sodium Chloride 100 mls @ 999 mls/hr 11/12/20 08:20 Nacl 0.9% IV LAMINE PRN Hypotension Metoclopramide HCl 5 mg 11/11/20 22:14 Metoclopramide 10 Mg/2 Ml Inj IV Q6H PRN Nausea And Vomiting Morphine Sulfate 2 mg 11/11/20 22:14 11/12/20 05:32 Morphine 2 Mg/1 Ml Inj IV 2 mg Q4H PRN Administration Pain, Moderate (4-6) Ondansetron HCl 4 mg 11/11/20 22:14 Ondansetron 4 Mg/2 Ml Inj IV Q8H PRN Nausea And Vomiting Pantoprazole Sodium 40 mg 11/11/20 23:00 11/12/20 00:52 Pantoprazole 40 Mg Inj IV 40 mg BID KRISTINE Administration Sodium Chloride 10 ml 11/11/20 23:00 11/12/20 00:10 Sodium Chloride 0.9% 10 Ml Flush Syringe IV 10 ml BID KRISTINE Administration Sodium Chloride 10 ml 11/11/20 22:14 Sodium Chloride 0.9% 10 Ml Flush Syringe IV PRN PRN LINE FLUSH
[2020-11-12] MEDS ORDERED: EPOETIN ALFA-EPBX 10,000 UNIT/1 ML VIAL SUB-Q SCH (10:00)
[2020-11-12] MEDS ORDERED: CALCIUM GLUCONATE 2,000 MG in SODIUM CHLORIDE 0.9% 100 ML IV SCH (10:30)
--- NOTE | 2020-11-12 11:48 | Electrocardiograph Report ---
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
[2020-11-12] MEDS ORDERED: hydrALAZINE 20 MG/1 ML INJ IV STA (12:54)
[2020-11-12 13:30] LABS: Hepatitis C Virus Antibody Non-Reactive (NonReactive)
[2020-11-12 14:11] LABS: Hepatitis B Surface Antigen Nonreactive (Negative)
[2020-11-12] MEDS ORDERED: hydrALAZINE 20 MG/1 ML INJ IV PRN (14:57)
[2020-11-12] MEDS ORDERED: amLODIPine 5 MG TAB PO SCH (15:00)
[2020-11-12] MEDS: hydrALAZINE 25 MG TAB PO SCH ×2 (16:12→21:03)
[2020-11-13] MEDS: HYDROmorphone 1 MG/1 ML INJ IV PRN ×3 (00:36→21:58)
[2020-11-13] MEDS ORDERED: cloNIDine 0.1 MG TAB PO ONE (00:40)
[2020-11-13] MEDS ORDERED: diphenhydrAMINE 25 MG CAP PO ONE (03:40)
[2020-11-13] MEDS: carvediloL 25 MG TAB PO SCH ×3 (04:43→17:42)
[2020-11-13] MEDS: NIFEdipine XL 60 MG TAB PO SCH ×3 (04:44→21:58)
[2020-11-13] MEDS: hydrALAZINE 25 MG TAB PO SCH ×3 (06:01→21:58)
[2020-11-13 08:50] LABS: Hematocrit 25.6 % (35.5-45.6); Hemoglobin 8.8 gm/dl (11.8-15.2); Mean Corpuscular HGB Conc 35 % (32-34); Mean Corpuscular Volume 92 fl (84-94); Platelet Count 234 K/mm3 (140-440); Red Blood Count 2.79 M/mm3 (3.65-5.03); Red Cell Distribution Width 16.4 % (13.2-15.2)
[2020-11-13 09:13] LABS: Calcium 10.7 mg/dL (8.4-10.2)
[2020-11-13] MEDS: PANTOPRAZOLE 40 MG INJ IV SCH ×2 (10:17→21:58)
[2020-11-13] MEDS ORDERED: SODIUM CHLORIDE 0.9% 100 ML IV PRN (10:34)
--- NOTE | 2020-11-13 13:11 | Progress Note ---
Assessment and Plan - Patient Problems (1) Hyperkalemia Current Visit: Yes Status: Acute Plan to address problem: arranged another HD today for correction of hyperkalemia. cont 2g K renal diet (2) End-stage renal disease needing dialysis Current Visit: Yes Status: Chronic Plan to address problem: cont HD on MWF schedule while inpatient (3) Anemia Current Visit: Yes Status: Acute Plan to address problem: work up as per GI. cont EPO with HD (4) GI bleed Current Visit: Yes Status: Acute Plan to address problem: Follow GI recommendations Subjective Date of service: 11/13/20 Principal diagnosis: ESRD Interval history: Pt awake, alert, in no acute distress. Labs showed persistent hyperkalemia Objective - Vital Signs Vital signs: Vital Signs - 12hr 11/13/20 11/13/20 11/13/20 02:00 03:47 04:43 Temperature 98.6 F Pulse Rate 114 H 116 H 116 H Respiratory 18 Rate Blood Pressure 201/145 210/145 O2 Sat by Pulse 91 Oximetry 11/13/20 11/13/20 11/13/20 06:01 08:10 10:18 Temperature 98.0 F Pulse Rate 116 H 116 H Respiratory 18 20 Rate Blood Pressure 210/145 140/91 O2 Sat by Pulse 94 Oximetry - General Appearance General appearance: well-developed, well-nourished, appears stated age EENT: ATNC, PERRL, mucous membranes moist Neck: no JVD Respiratory: Present: Clear to Ascultation Cardiology: regular, S1S2 Gastrointestinal: normoactive bowel sounds Integumentary: no rash, other (no edema ) Neurologic: no focal deficit, alert and oriented x3, strength 5/5, CN 3-12 intact Psychiatric: mood/affect appropriate, cooperative - Lab 11/13/20 08:36 11/13/20 08:36 Most recent lab results Calcium 10.7 mg/dL (8.4-10.2) H 11/13/20 08:36 Medications & Allergies - Medications Allergies/Adverse Reactions: Allergies No Known Allergies Allergy (Verified 11/11/20 14:47) Home Medications: Home Medications Medication Instructions Recorded Confirmed Last Taken Type NIFEdipine 25 mg PO BID 11/13/20 11/13/20 2 Days Ago History ~11/11/20 25 mg carvediloL [Coreg] 25 mg PO BID 11/13/20 11/13/20 2 Days Ago History ~11/11/20 25 mg hydrALAZINE 60 mg PO TID 11/13/20 11/13/20 2 Days Ago History ~11/11/20 60 mg Active Medications: Generic Name Dose Route Start Last Admin Trade Name Freq PRN Reason Stop Dose Admin Acetaminophen 650 mg 11/11/20 22:14 Acetaminophen 325 Mg Tab PO Q4H PRN Pain MILD(1-3)/Fever >100.5/RUANO Carvedilol 25 mg 11/13/20 04:14 11/13/20 10:17 Carvedilol 25 Mg Tab PO 25 mg BID@0800,1700 KRISTINE Administration Hydralazine HCl 20 mg 11/12/20 14:57 11/13/20 00:01 Hydralazine 20 Mg/1 Ml Inj IV 20 mg Q4HR PRN Administration SBP>170 or DBP>110 Hydralazine HCl 50 mg 11/12/20 15:00 11/13/20 06:01 Hydralazine 25 Mg Tab PO 50 mg Q8HR KRISTINE Administration Hydromorphone HCl 0.5 mg 11/11/20 22:14 11/13/20 10:18 Hydromorphone 1 Mg/1 Ml Inj IV 0.5 mg Q3H PRN Administration Pain , Severe (7-10) Sodium Chloride 100 mls @ 999 mls/hr 11/13/20 10:34 Nacl 0.9% IV LAMINE PRN Hypotension Metoclopramide HCl 5 mg 11/11/20 22:14 Metoclopramide 10 Mg/2 Ml Inj IV Q6H PRN Nausea And Vomiting Morphine Sulfate 2 mg 11/11/20 22:14 11/12/20 05:32 Morphine 2 Mg/1 Ml Inj IV 2 mg Q4H PRN Administration Pain, Moderate (4-6) Nifedipine 60 mg 11/13/20 04:15 11/13/20 04:44 Nifedipine Xl 60 Mg Tab PO 60 mg Q12HR KRISTINE Administration Ondansetron HCl 4 mg 11/11/20 22:14 Ondansetron 4 Mg/2 Ml Inj IV Q8H PRN Nausea And Vomiting Pantoprazole Sodium 40 mg 11/11/20 23:00 11/13/20 10:17 Pantoprazole 40 Mg Inj IV 40 mg BID KRISTINE Administration Sodium Chloride 10 ml 11/11/20 23:00 11/12/20 21:07 Sodium Chloride 0.9% 10 Ml Flush Syringe IV 10 ml BID KRISTINE Administration Sodium Chloride 10 ml 11/11/20 22:14 Sodium Chloride 0.9% 10 Ml Flush Syringe IV PRN PRN LINE FLUSH
[2020-11-13] MEDS: diphenhydrAMINE 25 MG CAP PO PRN (13:42)
[2020-11-13] MEDS: ACETAMINOPHEN 325 MG TAB PO PRN (13:42)
--- NOTE | 2020-11-13 14:10 | Progress Note ---
Assessment and Plan Assessment and plan: GI bleed Melanotic stools resolved. Continue Protonix. GI is on board and plan is for EGD today Acute blood loss anemia due to GI bleed Status post transfusion of 1 unit of PRBC. Monitor H&H and transfuse as needed to keep hemoglobin greater than 7. Hyperkalemia. Was treated in ER. End-stage renal disease disease on hemodialysis MWF. Patient had hemodialysis yesterday also having hemodialysis today. Nephrology is on board and input appreciated. Check BMP in the morning. Hypertensive urgency Blood pressure has improved. Continue current medications and adjust as needed. End-stage renal disease needing dialysis Nephrology is on board. History of pulmonary embolism Not on any blood thinners DVT prophylaxis. Continue SCDs. History Interval history: No abdominal pain, nausea, vomiting. Asking when EGD will be done. Hospitalist Physical - Constitutional Vitals: Temp Pulse Resp BP Pulse Ox 98.0 F 116 H 20 140/91 94 11/13/20 08:10 11/13/20 08:10 11/13/20 13:42 11/13/20 08:10 11/13/20 08:10 General appearance: Present: no acute distress, well-nourished - EENT Eyes: Present: PERRL, EOM intact ENT: hearing intact - Neck Neck: Present: supple, normal ROM - Respiratory Respiratory effort: normal Respiratory: bilateral: CTA - Cardiovascular Rhythm: regular Heart Sounds: Present: S1 & S2 - Extremities Extremities: No edema - Abdominal General gastrointestinal: soft, non-tender, non-distended, normal bowel sounds - Integumentary Integumentary: Present: clear, warm, dry Results - Labs CBC & Chem 7: 11/13/20 08:36 11/13/20 08:36 Labs: Laboratory Last Values WBC 7.8 K/mm3 (4.5-11.0) 11/13/20 08:36 RBC 2.79 M/mm3 (3.65-5.03) L 11/13/20 08:36 Hgb 8.8 gm/dl (11.8-15.2) L 11/13/20 08:36 Hct 25.6 % (35.5-45.6) L 11/13/20 08:36 MCV 92 fl (84-94) 11/13/20 08:36 MCH 32 pg (28-32) 11/13/20 08:36 MCHC 35 % (32-34) H 11/13/20 08:36 RDW 16.4 % (13.2-15.2) H 11/13/20 08:36 Plt Count 234 K/mm3 (140-440) 11/13/20 08:36 Lymph % (Auto) 10.6 % (13.4-35.0) L 11/12/20 05:21 [place] % (Auto) 7.2 % (0.0-7.3) 11/12/20 05:21 Eos % (Auto) 5.0 % (0.0-4.3) H 11/12/20 05:21 Baso % (Auto) 0.8 % (0.0-1.8) 11/12/20 05:21 Lymph # (Auto) 0.8 K/mm3 (1.2-5.4) L 11/12/20 05:21 [place] # (Auto) 0.5 K/mm3 (0.0-0.8) 11/12/20 05:21 Eos # (Auto) 0.4 K/mm3 (0.0-0.4) 11/12/20 05:21 Baso # (Auto) 0.1 K/mm3 (0.0-0.1) 11/12/20 05:21 Seg Neutrophils % 76.4 % (40.0-70.0) H 11/12/20 05:21 Seg Neutrophils # 5.5 K/mm3 (1.8-7.7) 11/12/20 05:21 PT 15.1 Sec. (12.2-14.9) H 11/11/20 15:10 INR 1.14 (0.87-1.13) H 11/11/20 15:10 APTT 32.0 Sec. (24.2-36.6) 11/11/20 15:10 Sodium 136 mmol/L (137-145) L 11/13/20 08:36 Potassium 6.2 mmol/L (3.6-5.0) H* 11/13/20 08:36 Chloride 95.2 mmol/L (98-107) L 11/13/20 08:36 Carbon Dioxide 23 mmol/L (22-30) D 11/13/20 08:36 Anion Gap 24 mmol/L 11/13/20 08:36 BUN 49 mg/dL (9-20) H 11/13/20 08:36 Creatinine 18.4 mg/dL (0.8-1.3) H D 11/13/20 08:36 Estimated GFR 4 ml/min 11/13/20 08:36 BUN/Creatinine Ratio 3 % 11/13/20 08:36 Glucose 99 mg/dL (75-100) 11/13/20 08:36 POC Glucose 77 mg/dL (70-105) 11/11/20 18:48 Calcium 10.7 mg/dL (8.4-10.2) H 11/13/20 08:36 Total Bilirubin 0.30 mg/dL (0.1-1.2) 11/12/20 05:21 AST 8 units/L (5-40) 11/12/20 05:21 ALT < 5 units/L (7-56) L 11/12/20 05:21 Alkaline Phosphatase 330 units/L (35-129) H 11/12/20 05:21 Total Protein 7.1 g/dL (6.3-8.2) 11/12/20 05:21 Albumin 3.5 g/dL (3.9-5) L 11/12/20 05:21 Albumin/Globulin Ratio 1.0 % 11/12/20 05:21 Urine Color Straw (Yellow) 11/11/20 Unknown Urine Turbidity Clear (Clear) 11/11/20 Unknown Urine pH 6.0 (5.0-7.0) 11/11/20 Unknown Ur Specific [place] 1.020 (1.003-1.030) 11/11/20 Unknown Urine Protein 30 mg/dl mg/dL (Negative) 11/11/20 Unknown Urine Glucose (UA) >=500 mg/dL (Negative) 11/11/20 Unknown Urine Ketones 80 mg/dL (Negative) 11/11/20 Unknown Urine Blood Lg (Negative) 11/11/20 Unknown Urine Nitrite Neg (Negative) 11/11/20 Unknown Urine Bilirubin Neg (Negative) 11/11/20 Unknown Urine Urobilinogen < 2.0 mg/dL (<2.0) 11/11/20 Unknown Ur Leukocyte Esterase Sm (Negative) 11/11/20 Unknown Urine WBC (Auto) 68.0 /HPF (0.0-6.0) H 11/11/20 Unknown Urine RBC (Auto) 19.0 /HPF (0.0-6.0) 11/11/20 Unknown U Epithel Cells (Auto) 1.0 /HPF (0-13.0) 11/11/20 Unknown Urine Mucus Few /HPF 11/11/20 Unknown Hepatitis A IgM Ab Non-reactive (NonReactive) 11/12/20 10:10 Hep Bs Antigen Nonreactive (Negative) 11/12/20 10:10 Hep B Core IgM Ab Non-reactive (NonReactive) 11/12/20 10:10 Hepatitis C Antibody Non-reactive (NonReactive) 11/12/20 10:10 Blood Type A POSITIVE 11/12/20 10:10 Antibody Screen Negative 11/12/20 10:10 Crossmatch See Detail 11/12/20 10:10 Microbiology: Microbiology 11/11/20 Unknown Urine,Clean Catch Urine Culture - Preliminary Active Medications - Current Medications Current Medications: Generic Name Dose Route Start Last Admin Trade Name Freq PRN Reason Stop Dose Admin Acetaminophen 650 mg 11/11/20 22:14 11/13/20 13:42 Acetaminophen 325 Mg Tab PO 650 mg Q4H PRN Administration Pain MILD(1-3)/Fever >100.5/RUANO Carvedilol 25 mg 11/13/20 04:14 11/13/20 10:17 Carvedilol 25 Mg Tab PO 25 mg BID@0800,1700 KRISTINE Administration Diphenhydramine HCl 25 mg 11/13/20 14:00 11/13/20 13:42 Diphenhydramine 25 Mg Cap PO 25 mg Q8H PRN Administration Itching Hydralazine HCl 20 mg 11/12/20 14:57 11/13/20 00:01 Hydralazine 20 Mg/1 Ml Inj IV 20 mg Q4HR PRN Administration SBP>170 or DBP>110 Hydralazine HCl 50 mg 11/12/20 15:00 11/13/20 06:01 Hydralazine 25 Mg Tab PO 50 mg Q8HR KRISTINE Administration Hydromorphone HCl 0.5 mg 11/11/20 22:14 11/13/20 10:18 Hydromorphone 1 Mg/1 Ml Inj IV 0.5 mg Q3H PRN Administration Pain , Severe (7-10) Sodium Chloride 100 mls @ 999 mls/hr 11/13/20 10:34 Nacl 0.9% IV LAMINE PRN Hypotension Metoclopramide HCl 5 mg 11/11/20 22:14 Metoclopramide 10 Mg/2 Ml Inj IV Q6H PRN Nausea And Vomiting Morphine Sulfate 2 mg 11/11/20 22:14 11/12/20 05:32 Morphine 2 Mg/1 Ml Inj IV 2 mg Q4H PRN Administration Pain, Moderate (4-6) Nifedipine 60 mg 11/13/20 04:15 11/13/20 13:41 Nifedipine Xl 60 Mg Tab PO 60 mg Q12HR KRISTINE Administration Ondansetron HCl 4 mg 11/11/20 22:14 Ondansetron 4 Mg/2 Ml Inj IV Q8H PRN Nausea And Vomiting Pantoprazole Sodium 40 mg 11/11/20 23:00 11/13/20 10:17 Pantoprazole 40 Mg Inj IV 40 mg BID KRISTINE Administration Sodium Chloride 10 ml 11/11/20 23:00 11/12/20 21:07 Sodium Chloride 0.9% 10 Ml Flush Syringe IV 10 ml BID KRISTINE Administration Sodium Chloride 10 ml 11/11/20 22:14 Sodium Chloride 0.9% 10 Ml Flush Syringe IV PRN PRN LINE FLUSH
--- NOTE | 2020-11-13 21:22 | Gastroenterology Progress Note ---
Assessment and Plan History and exam and presentation consistent with upper GI bleed most likely PUD due to NSAID use. AVM, malignancy, etc lower on DDx Patient could not be done today due to persistent hyperkalemia, please correct, scheduled for tomorrow - Patient Problems (1) Anemia Current Visit: Yes Status: Acute (2) GI bleed Current Visit: Yes Status: Acute (3) Hyperkalemia Current Visit: Yes Status: Acute (4) End-stage renal disease needing dialysis Current Visit: Yes Status: Chronic Subjective Date of service: 11/13/20 Principal diagnosis: ESRD Interval history: patient was scheduled for EGD today, was hyperkalemic, his repeat K was still too high so his case was cancelled by anesthesiology and rescheduled to today pt reports feeling a little better today Objective - Constitutional Vitals: Temp Pulse Resp BP Pulse Ox 98.2 F 102 H 18 157/96 100 11/13/20 16:50 11/13/20 18:00 11/13/20 16:50 11/13/20 16:50 11/13/20 16:50 General appearance: no acute distress - EENT ENT: hearing intact - Neck Neck: supple - Respiratory Respiratory effort: normal - Gastrointestinal General gastrointestinal: Present: soft - Labs CBC & Chem 7: 11/13/20 08:36 11/13/20 08:36 Labs: Laboratory Results - last 24 hr 11/13/20 11/13/20 08:36 08:36 WBC 7.8 RBC 2.79 L Hgb 8.8 L Hct 25.6 L MCV 92 MCH 32 MCHC 35 H RDW 16.4 H Plt Count 234 Sodium 136 L Potassium 6.2 H* Chloride 95.2 L Carbon Dioxide 23 D Anion Gap 24 BUN 49 H Creatinine 18.4 H D Estimated GFR 4 BUN/Creatinine Ratio 3 Glucose 99 Calcium 10.7 H
[2020-11-14 05:55] LABS: Basophils # (Auto) 0.1 K/mm3 (0.0-0.1); Basophils % (Auto) 0.7 % (0.0-1.8); Eosinophils # (Auto) 0.6 K/mm3 (0.0-0.4); Eosinophils % (Auto) 6.7 % (0.0-4.3); Hematocrit 26.2 % (35.5-45.6); Hemoglobin 8.9 gm/dl (11.8-15.2); Lymphocytes # (Auto) 0.9 K/mm3 (1.2-5.4); Lymphocytes % (Auto) 10.7 % (13.4-35.0); Mean Corpuscular HGB Conc 34 % (32-34); Mean Corpuscular Volume 92 fl (84-94); Monocytes # (Auto) 0.7 K/mm3 (0.0-0.8); Monocytes % (Auto) 8.8 % (0.0-7.3); Platelet Count 215 K/mm3 (140-440); Red Blood Count 2.83 M/mm3 (3.65-5.03); Red Cell Distribution Width 16.3 % (13.2-15.2)
[2020-11-14 06:01] LABS: Calcium 10.4 mg/dL (8.4-10.2)
[2020-11-14] MEDS: hydrALAZINE 25 MG TAB PO SCH ×3 (06:16→22:06)
[2020-11-14] MEDS: HYDROmorphone 1 MG/1 ML INJ IV PRN ×4 (06:17→22:06)
--- NOTE | 2020-11-14 06:51 | Event Note ---
Date: 11/14/20 repeat labs show normalized potassium, on the schedule for EGD this afternoon please maintain NPO
--- NOTE | 2020-11-14 08:46 | Progress Note ---
Assessment and Plan Assessment and plan: GI bleed Melanotic stools resolved. Continue Protonix. GI is on board and plan is for EGD which was rescheduled for today however patient ate breakfast. Acute blood loss anemia due to GI bleed Status post transfusion of 1 unit of PRBC. Monitor H&H and transfuse as needed to keep hemoglobin greater than 7. Hyperkalemia. Was treated in ER. Has resolved with hemodialysis. Nephrology input appreciated. Hypertensive urgency Blood pressure is controlled. Continue current medications and adjust as needed. End-stage renal disease needing dialysis Nephrology is on board. Hypercalcemia. Monitor calcium. Patient is on hemodialysis. Recheck phosphate level. Tachycardia. Continue beta-ирина. Monitor heart rate. History of pulmonary embolism Not on any blood thinners Left hip pain. Continue as needed analgesic. DVT prophylaxis. Continue SCDs. Disposition. Pending EGD. History Interval history: No abdominal pain, nausea, vomiting. Has had left hip pain. Hospitalist Physical - Constitutional Vitals: Temp Pulse Resp BP Pulse Ox 98.1 F 109 H 18 130/91 94 11/14/20 04:17 11/14/20 04:17 11/14/20 04:17 11/14/20 04:17 11/14/20 00:14 General appearance: Present: no acute distress, well-nourished - EENT Eyes: Present: PERRL ENT: hearing intact - Neck Neck: Present: supple, normal ROM - Respiratory Respiratory effort: normal - Cardiovascular Rhythm: regular Heart Sounds: Present: S1 & S2 - Extremities Extremities: No edema - Abdominal General gastrointestinal: soft, non-tender, non-distended, normal bowel sounds - Integumentary Integumentary: Present: warm, dry - Neurologic Neurologic: moves all extremities Results - Labs CBC & Chem 7: 11/14/20 04:50 11/14/20 04:50 Labs: Laboratory Last Values WBC 8.2 K/mm3 (4.5-11.0) 11/14/20 04:50 RBC 2.83 M/mm3 (3.65-5.03) L 11/14/20 04:50 Hgb 8.9 gm/dl (11.8-15.2) L 11/14/20 04:50 Hct 26.2 % (35.5-45.6) L 11/14/20 04:50 MCV 92 fl (84-94) 11/14/20 04:50 MCH 31 pg (28-32) 11/14/20 04:50 MCHC 34 % (32-34) 11/14/20 04:50 RDW 16.3 % (13.2-15.2) H 11/14/20 04:50 Plt Count 215 K/mm3 (140-440) 11/14/20 04:50 Lymph % (Auto) 10.7 % (13.4-35.0) L 11/14/20 04:50 [place] % (Auto) 8.8 % (0.0-7.3) H 11/14/20 04:50 Eos % (Auto) 6.7 % (0.0-4.3) H 11/14/20 04:50 Baso % (Auto) 0.7 % (0.0-1.8) 11/14/20 04:50 Lymph # (Auto) 0.9 K/mm3 (1.2-5.4) L 11/14/20 04:50 [place] # (Auto) 0.7 K/mm3 (0.0-0.8) 11/14/20 04:50 Eos # (Auto) 0.6 K/mm3 (0.0-0.4) H 11/14/20 04:50 Baso # (Auto) 0.1 K/mm3 (0.0-0.1) 11/14/20 04:50 Seg Neutrophils % 73.1 % (40.0-70.0) H 11/14/20 04:50 Seg Neutrophils # 6.0 K/mm3 (1.8-7.7) 11/14/20 04:50 PT 15.1 Sec. (12.2-14.9) H 11/11/20 15:10 INR 1.14 (0.87-1.13) H 11/11/20 15:10 APTT 32.0 Sec. (24.2-36.6) 11/11/20 15:10 Sodium 138 mmol/L (137-145) 11/14/20 04:50 Potassium 5.0 mmol/L (3.6-5.0) 11/14/20 04:50 Chloride 94.7 mmol/L (98-107) L 11/14/20 04:50 Carbon Dioxide 25 mmol/L (22-30) 11/14/20 04:50 Anion Gap 23 mmol/L 11/14/20 04:50 BUN 35 mg/dL (9-20) H 11/14/20 04:50 Creatinine 14.4 mg/dL (0.8-1.3) H 11/14/20 04:50 Estimated GFR 5 ml/min 11/14/20 04:50 BUN/Creatinine Ratio 2 % 11/14/20 04:50 Glucose 107 mg/dL (75-100) H 11/14/20 04:50 POC Glucose 77 mg/dL (70-105) 11/11/20 18:48 Calcium 10.4 mg/dL (8.4-10.2) H 11/14/20 04:50 Total Bilirubin 0.30 mg/dL (0.1-1.2) 11/12/20 05:21 AST 8 units/L (5-40) 11/12/20 05:21 ALT < 5 units/L (7-56) L 11/12/20 05:21 Alkaline Phosphatase 330 units/L (35-129) H 11/12/20 05:21 Total Protein 7.1 g/dL (6.3-8.2) 11/12/20 05:21 Albumin 3.5 g/dL (3.9-5) L 11/12/20 05:21 Albumin/Globulin Ratio 1.0 % 11/12/20 05:21 Urine Color Straw (Yellow) 11/11/20 Unknown Urine Turbidity Clear (Clear) 11/11/20 Unknown Urine pH 6.0 (5.0-7.0) 11/11/20 Unknown Ur Specific [place] 1.020 (1.003-1.030) 11/11/20 Unknown Urine Protein 30 mg/dl mg/dL (Negative) 11/11/20 Unknown Urine Glucose (UA) >=500 mg/dL (Negative) 11/11/20 Unknown Urine Ketones 80 mg/dL (Negative) 11/11/20 Unknown Urine Blood Lg (Negative) 11/11/20 Unknown Urine Nitrite Neg (Negative) 11/11/20 Unknown Urine Bilirubin Neg (Negative) 11/11/20 Unknown Urine Urobilinogen < 2.0 mg/dL (<2.0) 11/11/20 Unknown Ur Leukocyte Esterase Sm (Negative) 11/11/20 Unknown Urine WBC (Auto) 68.0 /HPF (0.0-6.0) H 11/11/20 Unknown Urine RBC (Auto) 19.0 /HPF (0.0-6.0) 11/11/20 Unknown U Epithel Cells (Auto) 1.0 /HPF (0-13.0) 11/11/20 Unknown Urine Mucus Few /HPF 11/11/20 Unknown Hepatitis A IgM Ab Non-reactive (NonReactive) 11/12/20 10:10 Hep Bs Antigen Nonreactive (Negative) 11/12/20 10:10 Hep B Core IgM Ab Non-reactive (NonReactive) 11/12/20 10:10 Hepatitis C Antibody Non-reactive (NonReactive) 11/12/20 10:10 Blood Type A POSITIVE 11/12/20 10:10 Antibody Screen Negative 11/12/20 10:10 Crossmatch See Detail 11/12/20 10:10 Microbiology: Microbiology 11/11/20 Unknown Urine,Clean Catch Urine Culture - Preliminary Walker/IV: Voiding Method Incontinent Active Medications - Current Medications Current Medications: Generic Name Dose Route Start Last Admin Trade Name Freq PRN Reason Stop Dose Admin Acetaminophen 650 mg 11/11/20 22:14 11/13/20 13:42 Acetaminophen 325 Mg Tab PO 650 mg Q4H PRN Administration Pain MILD(1-3)/Fever >100.5/RUANO Carvedilol 25 mg 11/13/20 04:14 11/13/20 17:42 Carvedilol 25 Mg Tab PO Not Given BID@0800,1700 KRISTINE Diphenhydramine HCl 25 mg 11/13/20 14:00 11/13/20 13:42 Diphenhydramine 25 Mg Cap PO 25 mg Q8H PRN Administration Itching Hydralazine HCl 20 mg 11/12/20 14:57 11/13/20 00:01 Hydralazine 20 Mg/1 Ml Inj IV 20 mg Q4HR PRN Administration SBP>170 or DBP>110 Hydralazine HCl 50 mg 11/12/20 15:00 11/14/20 06:16 Hydralazine 25 Mg Tab PO 50 mg Q8HR KRISTINE Administration Hydromorphone HCl 0.5 mg 11/11/20 22:14 11/14/20 06:17 Hydromorphone 1 Mg/1 Ml Inj IV 0.5 mg Q3H PRN Administration Pain , Severe (7-10) Sodium Chloride 100 mls @ 999 mls/hr 11/13/20 10:34 Nacl 0.9% IV LAMINE PRN Hypotension Metoclopramide HCl 5 mg 11/11/20 22:14 Metoclopramide 10 Mg/2 Ml Inj IV Q6H PRN Nausea And Vomiting Morphine Sulfate 2 mg 11/11/20 22:14 11/12/20 05:32 Morphine 2 Mg/1 Ml Inj IV 2 mg Q4H PRN Administration Pain, Moderate (4-6) Nifedipine 60 mg 11/13/20 04:15 11/13/20 21:58 Nifedipine Xl 60 Mg Tab PO 60 mg Q12HR KRISTINE Administration Ondansetron HCl 4 mg 11/11/20 22:14 Ondansetron 4 Mg/2 Ml Inj IV Q8H PRN Nausea And Vomiting Pantoprazole Sodium 40 mg 11/11/20 23:00 11/13/20 21:58 Pantoprazole 40 Mg Inj IV 40 mg BID KRISTINE Administration Sodium Chloride 10 ml 11/11/20 23:00 11/13/20 21:58 Sodium Chloride 0.9% 10 Ml Flush Syringe IV 10 ml BID KRISTINE Administration Sodium Chloride 10 ml 11/11/20 22:14 Sodium Chloride 0.9% 10 Ml Flush Syringe IV PRN PRN LINE FLUSH
--- NOTE | 2020-11-14 10:42 | Progress Note ---
Assessment and Plan - Patient Problems (1) Hyperkalemia Current Visit: Yes Status: Acute Plan to address problem: K corrected with HD. cont 2g K renal diet (2) End-stage renal disease needing dialysis Current Visit: Yes Status: Chronic Plan to address problem: HD schedule changed to pt's outpt schedule on TTS (3) Anemia Current Visit: Yes Status: Acute Plan to address problem: work up as per GI. cont EPO with HD (4) GI bleed Current Visit: Yes Status: Acute Plan to address problem: Follow GI recommendations Subjective Date of service: 11/14/20 Principal diagnosis: ESRD Interval history: Pt awake, alert, in no acute distress. Hyperkalemia corrected Objective - Vital Signs Vital signs: Vital Signs - 12hr 11/14/20 11/14/20 11/14/20 00:14 02:26 04:17 Temperature 99.2 F 98.1 F Pulse Rate 109 H 111 H 109 H Respiratory 18 18 Rate Blood Pressure 151/104 130/91 O2 Sat by Pulse 94 Oximetry - General Appearance General appearance: well-developed, well-nourished, appears stated age EENT: ATNC, PERRL, mucous membranes moist Neck: no JVD Respiratory: Present: Clear to Ascultation Cardiology: regular, S1S2 Gastrointestinal: normoactive bowel sounds Integumentary: no rash Neurologic: no focal deficit, alert and oriented x3, strength 5/5, CN 3-12 intact Psychiatric: mood/affect appropriate, cooperative - Lab 11/14/20 04:50 11/14/20 04:50 Most recent lab results Calcium 10.4 mg/dL (8.4-10.2) H 11/14/20 04:50 Medications & Allergies - Medications Allergies/Adverse Reactions: Allergies No Known Allergies Allergy (Verified 11/11/20 14:47) Home Medications: Home Medications Medication Instructions Recorded Confirmed Last Taken Type NIFEdipine 25 mg PO BID 11/13/20 11/13/20 2 Days Ago History ~11/11/20 25 mg carvediloL [Coreg] 25 mg PO BID 11/13/20 11/13/20 2 Days Ago History ~11/11/20 25 mg hydrALAZINE 60 mg PO TID 11/13/20 11/13/20 2 Days Ago History ~11/11/20 60 mg Active Medications: Generic Name Dose Route Start Last Admin Trade Name Freq PRN Reason Stop Dose Admin Acetaminophen 650 mg 11/11/20 22:14 11/13/20 13:42 Acetaminophen 325 Mg Tab PO 650 mg Q4H PRN Administration Pain MILD(1-3)/Fever >100.5/RUANO Carvedilol 25 mg 11/13/20 04:14 11/13/20 17:42 Carvedilol 25 Mg Tab PO Not Given BID@0800,1700 KRISTINE Diphenhydramine HCl 25 mg 11/13/20 14:00 11/13/20 13:42 Diphenhydramine 25 Mg Cap PO 25 mg Q8H PRN Administration Itching Hydralazine HCl 20 mg 11/12/20 14:57 11/13/20 00:01 Hydralazine 20 Mg/1 Ml Inj IV 20 mg Q4HR PRN Administration SBP>170 or DBP>110 Hydralazine HCl 50 mg 11/12/20 15:00 11/14/20 06:16 Hydralazine 25 Mg Tab PO 50 mg Q8HR KRISTINE Administration Hydromorphone HCl 0.5 mg 11/11/20 22:14 11/14/20 06:17 Hydromorphone 1 Mg/1 Ml Inj IV 0.5 mg Q3H PRN Administration Pain , Severe (7-10) Sodium Chloride 100 mls @ 999 mls/hr 11/13/20 10:34 Nacl 0.9% IV LAMINE PRN Hypotension Metoclopramide HCl 5 mg 11/11/20 22:14 Metoclopramide 10 Mg/2 Ml Inj IV Q6H PRN Nausea And Vomiting Morphine Sulfate 2 mg 11/11/20 22:14 11/12/20 05:32 Morphine 2 Mg/1 Ml Inj IV 2 mg Q4H PRN Administration Pain, Moderate (4-6) Nifedipine 60 mg 11/13/20 04:15 11/13/20 21:58 Nifedipine Xl 60 Mg Tab PO 60 mg Q12HR KRISITNE Administration Ondansetron HCl 4 mg 11/11/20 22:14 Ondansetron 4 Mg/2 Ml Inj IV Q8H PRN Nausea And Vomiting Pantoprazole Sodium 40 mg 11/11/20 23:00 11/13/20 21:58 Pantoprazole 40 Mg Inj IV 40 mg BID KRISTINE Administration Sodium Chloride 10 ml 11/11/20 23:00 11/13/20 21:58 Sodium Chloride 0.9% 10 Ml Flush Syringe IV 10 ml BID KRISTINE Administration Sodium Chloride 10 ml 11/11/20 22:14 Sodium Chloride 0.9% 10 Ml Flush Syringe IV PRN PRN LINE FLUSH
[2020-11-14] MEDS: NIFEdipine XL 60 MG TAB PO SCH ×2 (10:46→22:06)
[2020-11-14] MEDS: carvediloL 25 MG TAB PO SCH ×2 (10:46→17:06)
[2020-11-14] MEDS: PANTOPRAZOLE 40 MG INJ IV SCH ×2 (10:47→22:06)
[2020-11-14] MEDS: ACETAMINOPHEN 325 MG TAB PO PRN (14:00)
[2020-11-14] MEDS: diphenhydrAMINE 25 MG CAP PO PRN (14:00)
--- NOTE | 2020-11-14 16:50 | Gastroenterology Progress Note ---
Assessment and Plan History and exam and presentation consistent with upper GI bleed most likely PUD due to NSAID use. AVM, malignancy, etc lower on DDx Hemoglobin stable status post transfusion Patient not actively bleeding therefore cannot be done over the weekend as emergency status Therefore if patient remains in the hospital on Tuesday we will proceed with EGD on Tuesday; as hemoglobin is stable no overt bleeding, if patient is otherwise ready for discharge he could alternatively follow-up with us as an outpatient for outpatient EGD Continue PPI in the meantime - Patient Problems (1) Anemia Current Visit: Yes Status: Acute (2) GI bleed Current Visit: Yes Status: Acute (3) Hyperkalemia Current Visit: Yes Status: Acute (4) End-stage renal disease needing dialysis Current Visit: Yes Status: Chronic Subjective Date of service: 11/14/20 Principal diagnosis: ESRD Interval history: patient was scheduled for EGD today, was NPO, but somehow still ate breakfast so EGD had to be cancelled He reports his only complaint is his leg bothering him Stomach feels fine No GI blood loss that he is seeing Objective - Constitutional Vitals: Temp Pulse Resp BP Pulse Ox 98.1 F 109 H 20 130/91 98 11/14/20 04:17 11/14/20 04:17 11/14/20 14:00 11/14/20 04:17 11/14/20 10:00 General appearance: no acute distress - EENT Eyes: EOM intact - Respiratory Respiratory effort: normal - Gastrointestinal General gastrointestinal: Present: soft - Labs CBC & Chem 7: 11/14/20 04:50 11/14/20 04:50 Labs: Laboratory Results - last 24 hr 11/14/20 11/14/20 04:50 04:50 WBC 8.2 RBC 2.83 L Hgb 8.9 L Hct 26.2 L MCV 92 MCH 31 MCHC 34 RDW 16.3 H Plt Count 215 Lymph % (Auto) 10.7 L [place] % (Auto) 8.8 H Eos % (Auto) 6.7 H Baso % (Auto) 0.7 Lymph # (Auto) 0.9 L [place] # (Auto) 0.7 Eos # (Auto) 0.6 H Baso # (Auto) 0.1 Seg Neutrophils % 73.1 H Seg Neutrophils # 6.0 Sodium 138 Potassium 5.0 Chloride 94.7 L Carbon Dioxide 25 Anion Gap 23 BUN 35 H Creatinine 14.4 H Estimated GFR 5 BUN/Creatinine Ratio 2 Glucose 107 H Calcium 10.4 H
[2020-11-15] MEDS: HYDROmorphone 1 MG/1 ML INJ IV PRN ×2 (05:10→09:39)
[2020-11-15] MEDS: hydrALAZINE 25 MG TAB PO SCH (05:10)
[2020-11-15 08:36] VITALS: BP 143/96
--- NOTE | 2020-11-15 08:38 | Progress Note ---
Assessment and Plan - Patient Problems (1) End-stage renal disease needing dialysis Current Visit: Yes Status: Chronic Plan to address problem: HD schedule changed to pt's outpt schedule on TTS (2) Hyperkalemia Current Visit: Yes Status: Acute Plan to address problem: K corrected with HD. cont 2g K renal diet (3) Anemia Current Visit: Yes Status: Acute Plan to address problem: work up as per GI. cont EPO with HD (4) GI bleed Current Visit: Yes Status: Acute Plan to address problem: Follow GI recommendations Subjective Date of service: 11/15/20 Principal diagnosis: ESRD Interval history: Pt awake, alert, in no acute distress. Hyperkalemia corrected Objective - Vital Signs Vital signs: Vital Signs - 12hr 11/14/20 11/15/20 11/15/20 22:24 04:28 08:35 Temperature 97.7 F 98.5 F 32.1 F L Pulse Rate 106 H 98 H 99 H Respiratory 18 18 18 Rate Blood Pressure 149/103 139/100 143/96 O2 Sat by Pulse 90 100 99 Oximetry - General Appearance General appearance: well-developed, well-nourished, appears stated age EENT: ATNC, PERRL, mucous membranes moist Neck: no JVD Respiratory: Present: Clear to Ascultation Cardiology: regular, S1S2 Gastrointestinal: normoactive bowel sounds Integumentary: no rash Neurologic: no focal deficit, alert and oriented x3, strength 5/5, CN 3-12 intact - Lab 11/14/20 04:50 11/14/20 04:50 Most recent lab results Calcium 10.4 mg/dL (8.4-10.2) H 11/14/20 04:50 Medications & Allergies - Medications Allergies/Adverse Reactions: Allergies No Known Allergies Allergy (Verified 11/11/20 14:47) Home Medications: Home Medications Medication Instructions Recorded Confirmed Last Taken Type NIFEdipine 25 mg PO BID 11/13/20 11/13/20 2 Days Ago History ~11/11/20 25 mg carvediloL [Coreg] 25 mg PO BID 11/13/20 11/13/20 2 Days Ago History ~11/11/20 25 mg hydrALAZINE 60 mg PO TID 11/13/20 11/13/20 2 Days Ago History ~11/11/20 60 mg Active Medications: Generic Name Dose Route Start Last Admin Trade Name Freq PRN Reason Stop Dose Admin Acetaminophen 650 mg 11/11/20 22:14 11/14/20 14:00 Acetaminophen 325 Mg Tab PO 650 mg Q4H PRN Administration Pain MILD(1-3)/Fever >100.5/RUANO Carvedilol 25 mg 11/13/20 04:14 11/14/20 17:06 Carvedilol 25 Mg Tab PO 25 mg BID@0800,1700 KRISTINE Administration Diphenhydramine HCl 25 mg 11/13/20 14:00 11/14/20 14:00 Diphenhydramine 25 Mg Cap PO 25 mg Q8H PRN Administration Itching Hydralazine HCl 20 mg 11/12/20 14:57 11/13/20 00:01 Hydralazine 20 Mg/1 Ml Inj IV 20 mg Q4HR PRN Administration SBP>170 or DBP>110 Hydralazine HCl 50 mg 11/12/20 15:00 11/15/20 05:10 Hydralazine 25 Mg Tab PO 50 mg Q8HR KRISTINE Administration Hydromorphone HCl 0.5 mg 11/11/20 22:14 11/15/20 05:10 Hydromorphone 1 Mg/1 Ml Inj IV 0.5 mg Q3H PRN Administration Pain , Severe (7-10) Sodium Chloride 100 mls @ 999 mls/hr 11/13/20 10:34 Nacl 0.9% IV LAMINE PRN Hypotension Metoclopramide HCl 5 mg 11/11/20 22:14 Metoclopramide 10 Mg/2 Ml Inj IV Q6H PRN Nausea And Vomiting Morphine Sulfate 2 mg 11/11/20 22:14 11/12/20 05:32 Morphine 2 Mg/1 Ml Inj IV 2 mg Q4H PRN Administration Pain, Moderate (4-6) Nifedipine 60 mg 11/13/20 04:15 11/14/20 22:06 Nifedipine Xl 60 Mg Tab PO 60 mg Q12HR KRISTINE Administration Ondansetron HCl 4 mg 11/11/20 22:14 Ondansetron 4 Mg/2 Ml Inj IV Q8H PRN Nausea And Vomiting Pantoprazole Sodium 40 mg 11/11/20 23:00 11/14/20 22:06 Pantoprazole 40 Mg Inj IV 40 mg BID KRISTINE Administration Sodium Chloride 10 ml 11/11/20 23:00 11/14/20 22:08 Sodium Chloride 0.9% 10 Ml Flush Syringe IV 10 ml BID KRISTINE Administration Sodium Chloride 10 ml 11/11/20 22:14 Sodium Chloride 0.9% 10 Ml Flush Syringe IV PRN PRN LINE FLUSH
[2020-11-15] MEDS: carvediloL 25 MG TAB PO SCH (09:39)
[2020-11-15] MEDS: PANTOPRAZOLE 40 MG INJ IV SCH (09:39)
[2020-11-15] MEDS: NIFEdipine XL 60 MG TAB PO SCH (09:39)
--- NOTE | 2020-11-15 15:01 | Event Note ---
Date: 11/15/20 Patient left against medical advice
--- NOTE | 2020-11-15 15:02 | Discharge Summary ---
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 Patient has a history of pulmonary embolus but has not been on anticoagulation in months. Patient also has a history of end-stage renal disease. patient states over the past 2 to 3 days his stools have been very dark in color. Patient also complaining of some lower abdominal discomfort. Patient had last dialysis 6 days previously. He is missed his last 2 sessions because he states there was a lot going on in his life at the time. He was seen and examined in ED and admitted. He had hyperkalemia, treated with kayexalate, Insulin and hemodialysis. He was to have EGD but however signed out against medical advice on 11/15/20. GI bleed Melanotic stools resolved. Continue Protonix. GI is on board and plan is for EGD which was rescheduled for today however roman ent ate breakfast. Acute blood loss anemia due to GI bleed Status post transfusion of 1 unit of PRBC. Monitor H&H and transfuse as needed to keep hemoglobin greater than 7. Hyperkalemia. Was treated in ER. Has resolved with hemodialysis. Nephrology input appreciated. Hypertensive urgency Blood pressure is controlled. Continue current medications and adjust as needed. End-stage renal disease needing dialysis Nephrology is on board. Hypercalcemia. Monitor calcium. Patient is on hemodialysis. Recheck phosphate level. Tachycardia. Continue beta-ирина. Monitor heart rate. History of pulmonary embolism Not on any blood thinners Left hip pain. Continue as needed analgesic. DVT prophylaxis. Continue SCDs. Disposition: LEFT AGAINST MEDICAL ADVICE Final Discharge Diagnosis (Prints w/discharge instructions): 1.Hyperkalemia. 2.Acute GI bleed. 3.ESRD on hemodialysis Time spent for discharge: 32 mins - Discharge Diagnoses (1) GI bleed Status: Acute (2) Hypertensive emergency Status: Acute (3) ESRD (end stage renal disease) on dialysis Status: Chronic (4) Hyperkalemia Status: Chronic (5) End-stage renal disease needing dialysis Status: Chronic (6) History of pulmonary embolism Status: Chronic (7) Left against medical advice Status: Acute Core Measure Documentation - Palliative Care Palliative Care/ Comfort Measures: Not Applicable - Core Measures Any of the following diagnoses?: none Exam - Constitutional Vitals: Temp Pulse Resp BP Pulse Ox 32.1 F L 99 H 20 143/96 99 11/15/20 08:35 11/15/20 08:35 11/15/20 09:39 11/15/20 08:35 11/15/20 08:35 Plan Follow up with: SHIVA MAYES MD [Primary Care Provider] - 7 Days Forms: Accompanied Note
--- NOTE | 2020-11-15 18:23 | Gastroenterology Progress Note ---
Assessment and Plan GI: anemia w/melena - PPI qd - follow h/h - ok for egd as outpt - will sign off, call if needed Subjective Date of service: 11/15/20 Principal diagnosis: ESRD Interval history: - no complaints from GI standpoint at this time Objective - Constitutional Vitals: Temp Pulse Resp BP Pulse Ox 32.1 F L 99 H 20 143/96 99 11/15/20 08:35 11/15/20 08:35 11/15/20 09:39 11/15/20 08:35 11/15/20 08:35 General appearance: no acute distress - EENT Eyes: PERRL - Respiratory Respiratory: bilateral: CTA - Cardiovascular Rhythm: regular Heart Sounds: Present: S1 & S2 - Gastrointestinal General gastrointestinal: Present: soft, non-tender, non-distended - Labs CBC & Chem 7: 11/14/20 04:50 11/14/20 04:50
[2020-11-16] MEDS ORDERED: LORazepam 2 MG/ML VIAL ONE (18:27)
== END 2020-11-15 14:26 | disposition left against medical advice (07) | DRG 377 ==
LOC: ED 14:05 → 4A 17:50 → OBSVTOIN 11-12 10:24
PROVIDERS: ADMIT Internal Medicine; ATTEND Internal Medicine
PROC: 30233N1 Transfusion of Nonautologous Red Blood Cells into Peripheral Vein, Percutaneous Approach (ICD-10-PCS; principal; 2020-11-12)
PROC: 5A1D70Z Performance of Urinary Filtration, Intermittent, Less than 6 Hours Per Day (ICD-10-PCS; 2020-11-12)
PROC: 5A1D70Z Performance of Urinary Filtration, Intermittent, Less than 6 Hours Per Day (ICD-10-PCS; 2020-11-13)
DX: K92.2 Gastrointestinal hemorrhage, unspecified (principal); N18.6 End stage renal disease; Z86.711 Personal history of pulmonary embolism; F17.200 Nicotine dependence, unspecified, uncomplicated; E87.5 Hyperkalemia; I16.0 Hypertensive urgency; E83.52 Hypercalcemia; R00.0 Tachycardia, unspecified; Z53.29 Procedure and treatment not carried out because of patient's decision for other reasons; I12.0 Hypertensive chronic kidney disease with stage 5 chronic kidney disease or end stage renal disease; D62 Acute posthemorrhagic anemia
CPT/HCPCS: 36415; 36430; 71045; 74176; 80048; 80053; 80074; 80076; 81001; 82962; 83690; 83735; 84100; 85007; 85014; 85018; 85025; 85027; 85610; 85730; 86850; 86900; 86901; 86920; 87086; 88305; 88342; 93005; 93975; 99406; G0378; C9113; J0360; J0610; J0696; J1170; J1200; J1815; J1885; J2060; J2270; J2405; J2704; J2765; J7030; P9016

== ENCOUNTER 2020-11-16 10:54 | Inpatient (IN) | payer MEDICAID ==
[2020-11-16] MEDS ORDERED: PANTOPRAZOLE 40 MG INJ IV ONE ×2 (12:26→14:02)
--- NOTE | 2020-11-16 12:32 | Emergency Department Report ---
HPI - General Chief Complaint: GI Bleed Time Seen by Provider: 11/16/20 12:01 - HPI HPI: 30-year-old male with history of ESRD on HD //, and PE not on AC who was recently admitted to this hospital on 11/11 due to ongoing GI bleed but left AGAINST MEDICAL ADVICE yesterday presents for readmission due to ongoing symptoms. The patient states that he left AMA yesterday because he had to handle a situation with his apartment. He states that after leaving, however, he has continued to have dark tarry stools, approximately 2/day. He says he also feels that he has increased swelling in his legs and he has continued to have the left upper thigh/groin pain that he had when he first came to the hospital. He says that he was supposed to have an EGD procedure yesterday but did not have it because he left but is here today because he is now ready for readmission and will stay for the procedure given that his symptoms have not resolved. His last dialysis session was 2 days ago on Tuesday. He denies any new symptoms or complaints since leaving the hospital. He denies any fever/chills, headache, vision change, chest pain, shortness of breath, v omiting, back pain, focal weakness, sensory changes, or any other complaints. He also denies any bright red blood per rectum. He is vaccinated against COVID- 19. ED Past Medical Hx - Past Medical History Hx Hypertension: Yes Hx Pulmonary Embolism: Yes Hx Renal Disease: Yes (Dialysys , , Tue) - Surgical History Additional Surgical History: AV fistula - Social History Smoking Status: Current Every Day Smoker - Medications Home Medications: Home Medications Medication Instructions Recorded Confirmed Last Taken Type NIFEdipine 25 mg PO BID 11/13/20 11/13/20 2 Days Ago History ~11/11/20 25 mg carvediloL [Coreg] 25 mg PO BID 11/13/20 11/13/20 2 Days Ago History ~11/11/20 25 mg hydrALAZINE 60 mg PO TID 11/13/20 11/13/20 2 Days Ago History ~11/11/20 60 mg ED Review of Systems ROS: Stated complaint: DIALYSIS/ BLEEDING INTESTINE Other details as noted in HPI Comment: All other systems reviewed and negative Constitutional: denies: chills, fever Eyes: denies: eye pain, vision change ENT: denies: throat pain, congestion Respiratory: denies: cough, shortness of breath Cardiovascular: edema. denies: chest pain, palpitations Gastrointestinal: abdominal pain, melena. denies: nausea, vomiting, diarrhea, constipation Genitourinary: denies: discharge, testicular pain, testicular mass Musculoskeletal: denies: back pain, arthralgia Skin: denies: rash, lesions Neurological: denies: headache, weakness, numbness, paresthesias Physical Exam - Physical Exam Physical Exam: GENERAL: Well developed and well nourished. No acute distress HEAD: Normocephalic. No obvious signs of trauma. ENT: Moist mucous membranes. EYES: Extraocular movements are intact. Pupils are equal and reactive NECK: Supple. Full ROM is intact. Trachea is midline. LUNGS: Nonlabored breathing. Equal chest rise bilaterally. Clear to auscultation bilaterally. CARDIOVASCULAR: Regular rate and rhythm. No murmurs or rubs. VASCULAR: Cap refill < 2 seconds. 2+ pitting edema bilaterally. Right arm fistula with bruit/thrill ABDOMEN: Abdomen is distended but without significant tenderness, guarding, or rebound. : Normal external male genitalia. Normal testicular lie. No testicular tenderness. No lesions or rashes noted. There is what appears to be tender left inguinal lymphadenopathy. No overlying skin changes. RECTAL: Patient refused NEURO: Patient is awake, alert, and oriented. 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 No focal deficits. Normal motor and sensory exam throughout. Normal speech. MUSCULOSKELETAL: No obvious deformities. No significant tenderness. Normal ROM throughout. ED Medical Decision Making - Lab Data Result diagrams: 11/16/20 12:29 11/16/20 12:29 Lab Results 11/16/20 11/16/20 11/16/20 Range/Units 12:29 12:29 12:29 WBC 9.5 (4.5-11.0) K/mm3 RBC 2.65 L (3.65-5.03) M/mm3 Hgb 8.3 L (11.8-15.2) gm/dl Hct 24.4 L (35.5-45.6) % MCV 92 (84-94) fl MCH 31 (28-32) pg MCHC 34 (32-34) % RDW 15.7 H (13.2-15.2) % Plt Count 213 (140-440) K/mm3 Lymph % (Auto) 10.5 L (13.4-35.0) % [place] % (Auto) 8.3 H (0.0-7.3) % Eos % (Auto) 6.5 H (0.0-4.3) % Baso % (Auto) 0.9 (0.0-1.8) % Lymph # (Auto) 1.0 L (1.2-5.4) K/mm3 [place] # (Auto) 0.8 (0.0-0.8) K/mm3 Eos # (Auto) 0.6 H (0.0-0.4) K/mm3 Baso # (Auto) 0.1 (0.0-0.1) K/mm3 Seg Neutrophils % 73.8 H (40.0-70.0) % Seg Neutrophils # 7.0 (1.8-7.7) K/mm3 PT 15.0 H (12.2-14.9) Sec. INR 1.13 (0.87-1.13) APTT 37.6 H (24.2-36.6) Sec. Sodium 137 (137-145) mmol/L Potassium 5.5 H (3.6-5.0) mmol/L Chloride 93.1 L (98-107) mmol/L Carbon Dioxide 22 (22-30) mmol/L Anion Gap 27 mmol/L BUN 74 H (9-20) mg/dL Creatinine 20.2 H (0.8-1.3) mg/dL Estimated GFR 3 ml/min BUN/Creatinine Ratio 4 % Glucose 85 (75-100) mg/dL Calcium 10.3 H (8.4-10.2) mg/dL Phosphorus (2.5-4.5) mg/dL Magnesium 2.30 (1.7-2.3) mg/dL Total Bilirubin (0.1-1.2) mg/dL Direct Bilirubin (0-0.2) mg/dL Indirect Bilirubin mg/dL AST (5-40) units/L ALT (7-56) units/L Alkaline Phosphatase (35-129) units/L Total Protein (6.3-8.2) g/dL Albumin (3.9-5) g/dL Albumin/Globulin Ratio % Lipase (13-60) units/L 11/16/20 Range/Units 12:29 WBC (4.5-11.0) K/mm3 RBC (3.65-5.03) M/mm3 Hgb (11.8-15.2) gm/dl Hct (35.5-45.6) % MCV (84-94) fl MCH (28-32) pg MCHC (32-34) % RDW (13.2-15.2) % Plt Count (140-440) K/mm3 Lymph % (Auto) (13.4-35.0) % [place] % (Auto) (0.0-7.3) % Eos % (Auto) (0.0-4.3) % Baso % (Auto) (0.0-1.8) % Lymph # (Auto) (1.2-5.4) K/mm3 [place] # (Auto) (0.0-0.8) K/mm3 Eos # (Auto) (0.0-0.4) K/mm3 Baso # (Auto) (0.0-0.1) K/mm3 Seg Neutrophils % (40.0-70.0) % Seg Neutrophils # (1.8-7.7) K/mm3 PT (12.2-14.9) Sec. INR (0.87-1.13) APTT (24.2-36.6) Sec. Sodium (137-145) mmol/L Potassium (3.6-5.0) mmol/L Chloride (98-107) mmol/L Carbon Dioxide (22-30) mmol/L Anion Gap mmol/L BUN (9-20) mg/dL Creatinine (0.8-1.3) mg/dL Estimated GFR ml/min BUN/Creatinine Ratio % Glucose (75-100) mg/dL Calcium (8.4-10.2) mg/dL Phosphorus 8.50 H (2.5-4.5) mg/dL Magnesium (1.7-2.3) mg/dL Total Bilirubin 0.40 (0.1-1.2) mg/dL Direct Bilirubin < 0.2 (0-0.2) mg/dL Indirect Bilirubin 0.2 mg/dL AST 14 (5-40) units/L ALT 6 L (7-56) units/L Alkaline Phosphatase 277 H (35-129) units/L Total Protein 7.7 (6.3-8.2) g/dL Albumin 4.0 (3.9-5) g/dL Albumin/Globulin Ratio 1.1 % Lipase 88 H (13-60) units/L - EKG Data -: EKG Interpreted by Me - EKG Data 11/16/20 14:03 Sinus tachycardia. Normal axis. Normal intervals. No ectopy. There are nonspecific inverted T waves noted in lead V2 and V6 which is new compared to prior EKG on 11/11. Otherwise there are no significant ST segment abnormalities. - Radiology Data Radiology results: report reviewed - Medical Decision Making 30-year-old male with history of ESRD on HD //, and PE not on AC who was recently admitted to this hospital on 11/11 due to ongoing GI bleed but left AGAINST MEDICAL ADVICE yesterday presents for readmission due to ongoing symptoms. On initial assessment, the patient is afebrile and with normal vital signs other than slightly decreased heart rate of 100. He reports continued melanotic stools and says he has noticed increased swelling in his bilateral lower extremities and feels he needs to get dialyzed. His last dialysis was 2 days ago. Review of the patient's prior medical records reveals that while admitted, the patient developed hyperkalemia which resolved with dialysis. I also see that the patient had a urinalysis performed on 11/11 which showed both red blood cells and white blood cells consistent with infection of some type. Patient reports left inguinal pain which has been ongoing. Physical examination reveals normal heart sounds and clear lungs. He has a right arm fistula with b ruit/thrill. He has 2+ pitting edema of the bilateral lower extremities. His abdomen is distended but with no significant tenderness, guarding, or rebound. He does appear to have what may be tender left inguinal lymphadenopathy, but he has no genital lesions and denies discharge. Nonetheless, given the patient's urinalysis on 11/11, this could represent sequela from an STD. Therefore I have ordered 1 dose of IV ceftriaxone and oral doxycycline. The patient was offered rectal exam but refused, saying that he knows he needs a GI procedure and feels the rectal exam is not necessary. We will send a full set of labs, obtain EKG and chest x-ray, with plan to admit the patient for dialysis as well as the fact that he was supposed to have EGD performed yesterday which did not happen because of him leaving A. Labs have resulted and reveal no significant leukocytosis. The patient's anemia is relatively stable with hemoglobin of 8.3 from last value of 8.9 on 11/14. Creatinine is expectedly elevated at 20.2 with BUN of 74. There is hyperkalemia with potassium of 5.5 as well as hypercalcemia and hyper phosphatemia. EKG shows nonspecific T wave inversions which seem to be new from prior EKG but no obvious hyperkalemia-associated changes Chest x-ray shows mild interstitial edema only. I have consulted nephrology and at 1:50 PM I spoke with Dr. Saavedra regarding the case. He states that the hyperkalemia is not as bad as it was before and that while he will need HD he likely does not need it today. He says he will provide further inpatient recommendations if the patient is admitted. I went and spoke to the patient regarding the results and asked about his outpatient dialysis. The issue is that the patient normally receives dialysis on Tuesday, but his last dialysis was Tuesday. Although he could wait to be dialyzed tomorrow, he would be unlikely to be able to wait until Tuesday. I will discuss the case with the on-call hospitalist At 2:40 PM I spoke with Dr. Meza, the on-call hospitalist regarding the case. He accepts patient for admission and will assume care. Critical Care Time: Yes Critical care time in (mins) excluding proc time.: 40 Critical care attestation.: If time is entered above; I have spent that time in minutes in the direct care of this critically ill patient, excluding procedure time. Critical care time was spent in the evaluation/assessment, work-up, and management of suspected GI bleed, end-stage renal disease and hyperkalemia requiring consultation with specialist, multiple IV medications, review of past medical record including diagnostics, and multiple reevaluations and reassessments. ED Disposition Clinical Impression: STD (male), ESRD (end stage renal disease) on dialysis, GI bleed, Hyperkalemia, Hyperphosphatemia, Hypercalcemia Disposition: 09 ADMITTED INPATIENT Is pt being admited?: Yes Condition: Stable
[2020-11-16] MEDS ORDERED: cefTRIAXone/NS 1 GM/50 ML 1 GM/50 ML BAG IV ONE (12:35)
[2020-11-16] MEDS ORDERED: DOXYCYCLINE 100 MG CAP PO ONE (12:36)
[2020-11-16 12:49] LABS: Basophils # (Auto) 0.1 K/mm3 (0.0-0.1); Basophils % (Auto) 0.9 % (0.0-1.8); Eosinophils # (Auto) 0.6 K/mm3 (0.0-0.4); Eosinophils % (Auto) 6.5 % (0.0-4.3); Hematocrit 24.4 % (35.5-45.6); Hemoglobin 8.3 gm/dl (11.8-15.2); Lymphocytes % (Auto) 10.5 % (13.4-35.0); Mean Corpuscular HGB Conc 34 % (32-34); Mean Corpuscular Volume 92 fl (84-94); Monocytes # (Auto) 0.8 K/mm3 (0.0-0.8); Monocytes % (Auto) 8.3 % (0.0-7.3); Platelet Count 213 K/mm3 (140-440); Red Blood Count 2.65 M/mm3 (3.65-5.03); Red Cell Distribution Width 15.7 % (13.2-15.2)
[2020-11-16 12:59] LABS: INR 1.13 (0.87-1.13)
[2020-11-16 13:00] LABS: Partial Thromboplastin Time 37.6 Sec. (24.2-36.6)
[2020-11-16 13:08] LABS: Calcium 10.3 mg/dL (8.4-10.2)
[2020-11-16 13:11] LABS: Alanine Aminotransferase 6 units/L (7-56)
[2020-11-16 13:12] LABS: Bilirubin,Direct < 0.2 mg/dL (0-0.2)
--- NOTE | 2020-11-16 13:23 | XRay Report ---
CHEST 1 VIEW INDICATION: fluid overload. COMPARISON: 10/14/2019 FINDINGS: Support devices: Stent projects at the inferior portion of the SVC, new since the prior. There is als o a left subclavian stent which is unchanged. Heart: Enlarged. Lungs/Pleura: There is a trace left pleural effusion. There are mild increased interstitial opacities IMPRESSION: 1. Probable mild interstitial edema. Cardiomegaly is noted. Signer Name: Leonard Pierce MD Signed: 11/16/2020 1:19 PM Workstation Name: [id number]
[2020-11-16] MEDS ORDERED: AZITHROMYCIN 250 MG TAB PO STA (16:12)
[2020-11-16] MEDS ORDERED: hydrALAZINE 20 MG/1 ML INJ IV ONE (17:39)
[2020-11-16] MEDS ORDERED: LORazepam 2 MG/ML VIAL IV ONE (18:35)
--- NOTE | 2020-11-16 21:14 | History and Physical Report ---
History of Present Illness Date of examination: 11/16/20 Date of admission: 11/16/20 14:44 Chief complaint: Shortness of breath 1 day History of present illness: 30-year-old -[place] male with history of end-stage renal disease and hypertension comes in for shortness of breath. Patient missed one episode episode of hemodialysis. Hemodialysis was due on Tuesday. Patient states that he is still having dark tarry stools approximately 2/day. Shortness of breath on minimal exertion present. Also shortness of breath and not lying flat. No fever or chills. No exposure to Covid virus. Patient is vaccinated against COVID-19. Patient was supposed to have EGD yesterday and patient left hospital AGAINST MEDICAL ADVICE saying that he has some urgent work. Patient was admitted for lGI bleed--tarry stools - Past Medical History --Hypertension: Yes --Pulmonary Embolism: Yes --Renal Disease: Yes (Dialysys T, TH, Sat) - Surgical History Additional Surgical History: AV fistula - Social History --Smoking Status: Current Every Day Smoker -Family history --Htn - Medications Home Medications: Home Medications Medication Instructions Recorded Confirmed Last Taken Type NIFEdipine 25 mg PO BID 11/13/20 11/13/20 2 Days Ago History ~11/11/20 25 mg carvediloL [Coreg] 25 mg PO BID 11/13/20 11/13/20 2 Days Ago History ~11/11/20 25 mg hydrALAZINE 60 mg PO TID 11/13/20 11/13/20 2 Days Ago History ~11/11/20 60 mg Review of Systems ROS: Stated complaint: DIALYSIS/ BLEEDING INTESTINE Other details as noted in HPI Comment: All other systems reviewed and negative Constitutional: denies: chills, fever Eyes: denies: eye pain, vision change ENT: denies: throat pain, congestion Respiratory: denies: cough, shortness of breath Cardiovascular: edema. denies: chest pain, palpitations Gastrointestinal: abdominal pain, melena. denies: nausea, vomiting, diarrhea, constipation Genitourinary: denies: discharge, testicular pain, testicular mass Musculoskeletal: denies: back pain, arthralgia Skin: denies: rash, lesions Neurological: denies: headache, weakness, numbness, paresthesias Medications and Allergies Allergies Allergy/AdvReac Type Severity Reaction Status Date / Time No Known Allergies Allergy Verified 11/11/20 14:47 Home Medications Medication Instructions Recorded Confirmed Last Taken Type NIFEdipine 25 mg PO BID 11/13/20 11/13/20 2 Days Ago History ~11/11/20 25 mg carvediloL [Coreg] 25 mg PO BID 11/13/20 11/13/20 2 Days Ago History ~11/11/20 25 mg hydrALAZINE 60 mg PO TID 11/13/20 11/13/20 2 Days Ago History ~11/11/20 60 mg Exam - Constitutional Vitals: Temp Pulse Resp BP Pulse Ox 98 F 114 H 24 173/112 100 11/16/20 12:49 11/16/20 18:01 11/16/20 18:15 11/16/20 18:15 11/16/20 19:22 General appearance: Present: no acute distress, well-nourished - EENT Eyes: Present: PERRL ENT: hearing intact, clear oral mucosa - Neck Neck: Present: supple, normal ROM - Respiratory Respiratory effort: normal Respiratory: bilateral: CTA - Cardiovascular Heart rate: 78 Rhythm: regular Heart Sounds: Present: S1 & S2. Absent: rub, click - Extremities Extremities: no ischemia, pulses intact, pulses symmetrical, No edema Peripheral Pulses: within normal limits - Abdominal General gastrointestinal: Present: soft, non-tender, non-distended, normal bowel sounds Male genitourinary: Present: normal - Integumentary Integumentary: Present: clear, warm, dry - Musculoskeletal Musculoskeletal: gait normal, strength equal bilaterally - Psychiatric Psychiatric: appropriate mood/affect, intact judgment & insight - Neurologic Neurologic: CNII-XII intact, moves all extremities Results - Labs CBC & Chem 7: 11/16/20 12:29 11/16/20 12:29 Labs: Laboratory Last Values WBC 9.5 K/mm3 (4.5-11.0) 11/16/20 12:29 RBC 2.65 M/mm3 (3.65-5.03) L 11/16/20 12:29 Hgb 8.3 gm/dl (11.8-15.2) L 11/16/20 12:29 Hct 24.4 % (35.5-45.6) L 11/16/20 12:29 MCV 92 fl (84-94) 11/16/20 12:29 MCH 31 pg (28-32) 11/16/20 12: MCHC 34 % (32-34) 11/16/20 12: RDW 15.7 % (13.2-15.2) H 11/16/20 12:29 Plt Count 213 K/mm3 (140-440) 11/16/20 12:29 Lymph % (Auto) 10.5 % (13.4-35.0) L 11/16/20 12:29 [place] % (Auto) 8.3 % (0.0-7.3) H 11/16/20 12: Eos % (Auto) 6.5 % (0.0-4.3) H 11/16/20 12: Baso % (Auto) 0.9 % (0.0-1.8) 11/16/20 12: Lymph # (Auto) 1.0 K/mm3 (1.2-5.4) L 11/16/20 12: [place] # (Auto) 0.8 K/mm3 (0.0-0.8) 11/16/20 12: Eos # (Auto) 0.6 K/mm3 (0.0-0.4) H 11/16/20 12: Baso # (Auto) 0.1 K/mm3 (0.0-0.1) 11/16/20 12: Seg Neutrophils % 73.8 % (40.0-70.0) H 11/16/20 12: Seg Neutrophils # 7.0 K/mm3 (1.8-7.7) 11/16/20 12: PT 15.0 Sec. (12.2-14.9) H 11/16/20 12:29 INR 1.13 (0.87-1.13) 11/16/20 12: APTT 37.6 Sec. (24.2-36.6) H 11/16/20 12:29 Sodium 137 mmol/L (137-145) 11/16/20 12:29 Potassium 5.5 mmol/L (3.6-5.0) H 11/16/20 12: Chloride 93.1 mmol/L (98-107) L 11/16/20 12: Carbon Dioxide 22 mmol/L (22-30) 11/16/20 12:29 Anion Gap 27 mmol/L 11/16/20 12:29 BUN 74 mg/dL (9-20) H 11/16/20 12:29 Creatinine 20.2 mg/dL (0.8-1.3) H 11/16/20 12:29 Estimated GFR 3 ml/min 11/16/20 12:29 BUN/Creatinine Ratio 4 % 11/16/20 12:29 Glucose 85 mg/dL (75-100) 11/16/20 12:29 Calcium 10.3 mg/dL (8.4-10.2) H 11/16/20 12:29 Phosphorus 8.50 mg/dL (2.5-4.5) H 11/16/20 12:29 Magnesium 2.30 mg/dL (1.7-2.3) 11/16/20 12:29 Total Bilirubin 0.40 mg/dL (0.1-1.2) 11/16/20 12:29 Direct Bilirubin < 0.2 mg/dL (0-0.2) 11/16/20 12:29 Indirect Bilirubin 0.2 mg/dL 11/16/20 12:29 AST 14 units/L (5-40) 11/16/20 12:29 ALT 6 units/L (7-56) L 11/16/20 12:29 Alkaline Phosphatase 277 units/L (35-129) H 11/16/20 12:29 Total Protein 7.7 g/dL (6.3-8.2) 11/16/20 12:29 Albumin 4.0 g/dL (3.9-5) 11/16/20 12:29 Albumin/Globulin Ratio 1.1 % 11/16/20 12:29 Lipase 88 units/L (13-60) H 11/16/20 12:29 Assessment and Plan Advance Directives: Yes (Full code ) VTE prophylaxis?: Mechanical Plan of care discussed with patient/family: Yes - Patient Problems (1) Volume overload Current Visit: Yes Status: Acute Plan to address problem: Patient needs hemodialysis and increased ultrafiltration (2) GI bleed Current Visit: Yes Status: Acute Plan to address problem: GI bleed has subsided as per patient GI consult and possible EGD tomorrow IV Protonix in the meantime (3) Hyperkalemia Current Visit: Yes Status: Acute Plan to address problem: Potassium 5.4 compared to 6.8 on the last admission Patient given calcium gluconate and bicarbonate. Patient for hemodialysis tomorrow. Nephrology consulted. (4) Hypertensive emergency Current Visit: Yes Status: Acute Plan to address problem: Adjust medications and IV hydralazine 10 mg every 3 as needed for blood pressure more than 160/100 (5) DVT prophylaxis Current Visit: No Status: Acute Plan to address problem: On SCDs and GI prophylaxis
[2020-11-16] MEDS ORDERED: METOCLOPRAMIDE 10 MG/2 ML INJ IV PRN ×2 (21:16→21:23)
[2020-11-16] MEDS ORDERED: ONDANSETRON 4 MG/2 ML INJ IV PRN (21:16)
[2020-11-16] MEDS ORDERED: ACETAMINOPHEN 325 MG TAB PO PRN (21:16)
[2020-11-16] MEDS ORDERED: CALCIUM GLUCONATE 2,000 MG in SODIUM CHLORIDE 0.9% 100 ML IV ONE (21:20)
[2020-11-16] MEDS: carvediloL 25 MG TAB PO SCH (21:44)
[2020-11-16] MEDS: NIFEdipine XL 30 MG TAB PO SCH (21:44)
[2020-11-16] MEDS: PANTOPRAZOLE 40 MG INJ IV SCH (21:44)
[2020-11-16] MEDS ORDERED: NIFEDIPINE PO SCH (22:00)
[2020-11-16] MEDS: MORPHINE 2 MG/1 ML INJ IV PRN (23:24)
[2020-11-17] MEDS: hydrALAZINE 20 MG/1 ML INJ IV PRN ×2 (04:55→23:18)
[2020-11-17] MEDS: MORPHINE 2 MG/1 ML INJ IV PRN ×3 (05:35→23:28)
[2020-11-17 06:36] LABS: Basophils # (Auto) 0.1 K/mm3 (0.0-0.1); Basophils % (Auto) 0.6 % (0.0-1.8); Eosinophils # (Auto) 0.5 K/mm3 (0.0-0.4); Eosinophils % (Auto) 6.2 % (0.0-4.3); Mean Corpuscular HGB Conc 34 % (32-34); Mean Corpuscular Volume 93 fl (84-94); Monocytes # (Auto) 0.6 K/mm3 (0.0-0.8); Platelet Count 208 K/mm3 (140-440); Red Blood Count 2.59 M/mm3 (3.65-5.03); Red Cell Distribution Width 15.7 % (13.2-15.2)
[2020-11-17 06:58] LABS: Albumin 3.8 g/dL (3.9-5); Calcium 10.4 mg/dL (8.4-10.2)
[2020-11-17] MEDS ORDERED: SODIUM CHLORIDE 0.9% 100 ML IV PRN (07:14)
[2020-11-17] MEDS ORDERED: CALCIUM GLUCONATE 1,000 MG in SODIUM CHLORIDE 0.9% 100 ML IV STA ×2 (07:42→08:02)
[2020-11-17] MEDS ORDERED: INSULIN REGULAR, HUMAN 100 UNITS/1 ML IV STA (07:42)
[2020-11-17] MEDS ORDERED: DEXTROSE 50% IN WATER (25GM) 50 ML VIAL IV STA (07:43)
[2020-11-17] MEDS ORDERED: NON-FORMULARY EACH (Hydralazine Tablet) PO SCH (08:00)
[2020-11-17] MEDS ORDERED: DEXTROSE 50% IN WATER (25GM) 50 ML SYRINGE IV STA (08:03)
--- NOTE | 2020-11-17 09:26 | Progress Note ---
Assessment and Plan Assessment and plan: (1) Volume overload Current Visit: Yes Status: Acute Plan to address problem: Patient needs hemodialysis and increased ultrafiltration (2) GI bleed Current Visit: Yes Status: Acute Plan to address problem: GI bleed has subsided as per patient GI consult and possible EGD tomorrow IV Protonix in the meantime (3) Hyperkalemia Current Visit: Yes Status: Acute Plan to address problem: Potassium 5.4 compared to 6.8 on the last admission Patient given calcium gluconate and bicarbonate. Patient for hemodialysis tomorrow. Nephrology consulted. (4) Hypertensive emergency Current Visit: Yes Status: Acute Plan to address problem: Adjust medications and IV hydralazine 10 mg every 3 as needed for blood pressure more than 160/100 (5) DVT prophylaxis Current Visit: No Status: Acute Plan to address problem: On SCDs and GI prophylaxis 11/17/20 Patient with ESRD on hemodialysis. was admitted here on 11/12 for GI Bleed, hyperkalemia but he signed out AMA on 11/15 and came back last night for shortness of breath after missing dialysis. Hyperkalemia. Give Insulin, Dextrose, calcium Gluconate. Nephrology consulted. GI re-consulted for dark stools.. History Interval history: Shortness of breath dark stools Hospitalist Physical - Physical exam Narrative exam: Gen: Not in acute distress, lying in bed HEENT: Normocephalic, atraumatic Neck:supple, no JVD Lungs: Clear to auscultation Heart: S1 and S2 reg, no murmurs, rubs or gallop Abd:soft, non-tender, non distended, normal bowel sounds Ext: No edema, clubbing or cyanosis Neuro: Awake, alert, oriented X 3, moves all extremities - Constitutional Vitals: Temp Pulse Resp BP Pulse Ox 98.4 F 105 H 16 162/107 98 11/17/20 04:26 11/17/20 04:26 11/17/20 04:26 11/17/20 05:33 11/17/20 04:26 General appearance: Present: no acute distress, well-nourished Results - Labs CBC & Chem 7: 11/17/20 05:40 11/17/20 05:40 Labs: Laboratory Last Values WBC 8.7 K/mm3 (4.5-11.0) 11/17/20 05:40 RBC 2.59 M/mm3 (3.65-5.03) L 11/17/20 05:40 Hgb 8.0 gm/dl (11.8-15.2) L 11/17/20 05:40 Hct 24.0 % (35.5-45.6) L 11/17/20 05:40 MCV 93 fl (84-94) 11/17/20 05:40 MCH 31 pg (28-32) 11/17/20 05:40 MCHC 34 % (32-34) 11/17/20 05:40 RDW 15.7 % (13.2-15.2) H 11/17/20 05:40 Plt Count 208 K/mm3 (140-440) 11/17/20 05:40 Lymph % (Auto) 12.0 % (13.4-35.0) L 11/17/20 05:40 [place] % (Auto) 7.0 % (0.0-7.3) 11/17/20 05:40 Eos % (Auto) 6.2 % (0.0-4.3) H 11/17/20 05:40 Baso % (Auto) 0.6 % (0.0-1.8) 11/17/20 05:40 Lymph # (Auto) 1.0 K/mm3 (1.2-5.4) L 11/17/20 05:40 [place] # (Auto) 0.6 K/mm3 (0.0-0.8) 11/17/20 05:40 Eos # (Auto) 0.5 K/mm3 (0.0-0.4) H 11/17/20 05:40 Baso # (Auto) 0.1 K/mm3 (0.0-0.1) 11/17/20 05:40 Seg Neutrophils % 74.2 % (40.0-70.0) H 11/17/20 05:40 Seg Neutrophils # 6.4 K/mm3 (1.8-7.7) 11/17/20 05:40 PT 15.0 Sec. (12.2-14.9) H 11/16/20 12:29 INR 1.13 (0.87-1.13) 11/16/20 12:29 APTT 37.6 Sec. (24.2-36.6) H 11/16/20 12:29 Sodium 136 mmol/L (137-145) L 11/17/20 05:40 Potassium 5.9 mmol/L (3.6-5.0) H 11/17/20 05:40 Chloride 94.9 mmol/L (98-107) L 11/17/20 05:40 Carbon Dioxide 20 mmol/L (22-30) L 11/17/20 05:40 Anion Gap 27 mmol/L 11/17/20 05:40 BUN 81 mg/dL (9-20) H 11/17/20 05:40 Creatinine 21.6 mg/dL (0.8-1.3) H 11/17/20 05:40 Estimated GFR 3 ml/min 11/17/20 05:40 BUN/Creatinine Ratio 4 % 11/17/20 05:40 Glucose 98 mg/dL (75-100) 11/17/20 05:40 Calcium 10.4 mg/dL (8.4-10.2) H 11/17/20 05:40 Phosphorus 8.50 mg/dL (2.5-4.5) H 11/16/20 12:29 Magnesium 2.30 mg/dL (1.7-2.3) 11/16/20 12:29 Total Bilirubin 0.30 mg/dL (0.1-1.2) 11/17/20 05:40 Direct Bilirubin < 0.2 mg/dL (0-0.2) 11/16/20 12:29 Indirect Bilirubin 0.2 mg/dL 11/16/20 12:29 AST 13 units/L (5-40) 11/17/20 05:40 ALT 6 units/L (7-56) L 11/17/20 05:40 Alkaline Phosphatase 283 units/L (35-129) H 11/17/20 05:40 Total Protein 7.4 g/dL (6.3-8.2) 11/17/20 05:40 Albumin 3.8 g/dL (3.9-5) L 11/17/20 05:40 Albumin/Globulin Ratio 1.1 % 11/17/20 05:40 Lipase 88 units/L (13-60) H 11/16/20 12:29 Walker/IV: Voiding Method Toilet Active Medications - Current Medications Current Medications: Generic Name Dose Route Start Last Admin Trade Name Freq PRN Reason Stop Dose Admin Acetaminophen 650 mg 11/16/20 21:16 Acetaminophen 325 Mg Tab PO Q4H PRN Pain MILD(1-3)/Fever >100.5/RUANO Carvedilol 25 mg 11/16/20 22:00 11/16/20 21:44 Carvedilol 25 Mg Tab PO 25 mg BID KRISTINE Administration Hydralazine HCl 50 mg 11/17/20 08:00 Hydralazine 25 Mg Tab PO TID KRISTINE Hydralazine HCl 10 mg 11/17/20 01:06 11/17/20 04:55 Hydralazine 20 Mg/1 Ml Inj IV 10 mg Q3H PRN Administration Blood Pressure Hydromorphone HCl 0.5 mg 11/16/20 21:16 Hydromorphone 1 Mg/1 Ml Inj IV Q3H PRN Pain , Severe (7-10) Sodium Chloride 100 mls @ 999 mls/hr 11/17/20 07:14 Nacl 0.9% IV LAMINE PRN Hypotension Lorazepam 1 mg 11/16/20 21:21 Lorazepam 2 Mg/Ml Vial IV Q4H PRN Anxiety Metoclopramide HCl 2.5 mg 11/16/20 21:23 Metoclopramide 10 Mg/2 Ml Inj IV Q6H PRN Nausea And Vomiting Morphine Sulfate 2 mg 11/16/20 21:16 11/17/20 05:35 Morphine 2 Mg/1 Ml Inj IV 2 mg Q4H PRN Administration Pain, Moderate (4-6) Nifedipine 30 mg 11/16/20 22:00 11/16/20 21:44 Nifedipine Xl 30 Mg Tab PO 30 mg BID KRISTINE Administration Ondansetron HCl 4 mg 11/16/20 21:16 Ondansetron 4 Mg/2 Ml Inj IV Q8H PRN Nausea And Vomiting Pantoprazole Sodium 40 mg 11/16/20 22:00 11/16/20 21:44 Pantoprazole 40 Mg Inj IV 40 mg BID KRISTINE Administration Sodium Chloride 10 ml 11/16/20 22:00 11/16/20 21:45 Sodium Chloride 0.9% 10 Ml Flush Syringe IV 10 ml BID KRISTINE Administration Sodium Chloride 10 ml 11/16/20 21:16 Sodium Chloride 0.9% 10 Ml Flush Syringe IV PRN PRN LINE FLUSH
[2020-11-17] MEDS: carvediloL 25 MG TAB PO SCH ×2 (10:16→23:27)
[2020-11-17] MEDS: NIFEdipine XL 30 MG TAB PO SCH ×2 (10:16→23:19)
[2020-11-17] MEDS: PANTOPRAZOLE 40 MG INJ IV SCH ×2 (10:17→23:18)
[2020-11-17] MEDS ORDERED: INSULIN REGULAR, HUMAN 100 UNITS/1 ML IV SCH (10:45)
[2020-11-17] MEDS ORDERED: DEXTROSE 50% IN WATER (25GM) 50 ML SYRINGE IV SCH (10:45)
--- NOTE | 2020-11-17 11:08 | Electrocardiograph Report ---
[facility] Test Date: 2020-11-16 Test Time: 13:32:17 Pat Name: GIOVANNA STARKS Department: Room: A384 1 Gender: M Physician Office Secretary: CLAUDIA : 1990 Requested By: WES CROWDER Order Number: [id number] Reading MD: Stan Skaggs Measurements Intervals [place] Rate: 100 P: 44 NC: 141 QRS: 41 QRSD: 87 T: 97 QT: 356 QTc: 460 Interpretive Statements Sinus tachycardia NONSPECIFIC REPOL ABNORMALITY, ANTERIOR LEADS Compared to ECG 11/11/2020 14:23:34 Electronically Signed On 11-17-2020 11:07:59 EDT by Stan Skaggs
[2020-11-17] MEDS: hydrALAZINE 25 MG TAB PO SCH ×3 (11:21→23:19)
--- NOTE | 2020-11-17 14:54 | Consultation ---
History of Present Illness - Reason for Consult end stage renal disease - History of Present Illness Very pleasant 30-year-old -Mexican male with past medical history of end-stage renal disease in the setting of hypertension, presented to the emergency department secondary to worsening shortness of breath. Was recently here and was supposed to be getting an EGD but signed out AGAINST MEDICAL ADVICE in order to take care of things at home. He returns back at this time and hopefully plan is for EGD soon during this admission. Plan for hemodialysis later today. He has a functional right upper extremity AV fistula. Past History Past Medical History: anemia, ESRD, hypertension Past Surgical History: Other (AV fistula creation) Social history: other (History of previous incarceration) Family history: no significant family history Medications and Allergies Allergies Allergy/AdvReac Type Severity Reaction Status Date / Time No Known Allergies Allergy Verified 11/11/20 14:47 Home Medications Medication Instructions Recorded Confirmed Last Taken Type NIFEdipine 25 mg PO BID 11/13/20 11/13/20 2 Days Ago History ~11/11/20 25 mg carvediloL [Coreg] 25 mg PO BID 11/13/20 11/13/20 2 Days Ago History ~11/11/20 25 mg hydrALAZINE 60 mg PO TID 11/13/20 11/13/20 2 Days Ago History ~11/11/20 60 mg Active Meds: Active Medications Acetaminophen (Acetaminophen 325 Mg Tab) 650 mg PO Q4H PRN PRN Reason: Pain MILD(1-3)/Fever >100.5/RUANO Carvedilol (Carvedilol 25 Mg Tab) 25 mg PO BID [facility] Last Admin: 11/17/20 10:16 Dose: 25 mg Documented by: Hydralazine HCl (Hydralazine 25 Mg Tab) 50 mg PO TID [facility] Last Admin: 11/17/20 11:21 Dose: 50 mg Documented by: Hydralazine HCl (Hydralazine 20 Mg/1 Ml Inj) 10 mg IV Q3H PRN PRN Reason: Blood Pressure Last Admin: 11/17/20 04:55 Dose: 10 mg Documented by: Hydromorphone HCl (Hydromorphone 1 Mg/1 Ml Inj) 0.5 mg IV Q3H PRN PRN Reason: Pain , Severe (7-10) Sodium Chloride (Nacl 0.9%) 100 mls @ 999 mls/hr IV LAMINE PRN PRN Reason: Hypotension Lorazepam (Lorazepam 2 Mg/Ml Vial) 1 mg IV Q4H PRN PRN Reason: Anxiety Metoclopramide HCl (Metoclopramide 10 Mg/2 Ml Inj) 2.5 mg IV Q6H PRN PRN Reason: Nausea And Vomiting Morphine Sulfate (Morphine 2 Mg/1 Ml Inj) 2 mg IV Q4H PRN PRN Reason: Pain, Moderate (4-6) Last Admin: 11/17/20 10:25 Dose: 2 mg Documented by: Nifedipine (Nifedipine Xl 30 Mg Tab) 30 mg PO BID [facility] Last Admin: 11/17/20 10:16 Dose: 30 mg Documented by: Ondansetron HCl (Ondansetron 4 Mg/2 Ml Inj) 4 mg IV Q8H PRN PRN Reason: Nausea And Vomiting Pantoprazole Sodium (Pantoprazole 40 Mg Inj) 40 mg IV BID [facility] Last Admin: 11/17/20 10:17 Dose: 40 mg Documented by: Sodium Chloride (Sodium Chloride 0.9% 10 Ml Flush Syringe) 10 ml IV BID [facility] Last Admin: 11/17/20 10:17 Dose: 10 ml Documented by: Sodium Chloride (Sodium Chloride 0.9% 10 Ml Flush Syringe) 10 ml IV PRN PRN PRN Reason: LINE FLUSH Review of Systems Constitutional: fatigue, weakness Exam - Vital Signs Vital signs: Vital Signs Temp Pulse Resp BP Pulse Ox 98 F 100 H 18 150/100 100 11/16/20 12:49 11/16/20 12:49 11/16/20 12:49 11/16/20 12:49 11/16/20 12:49 - General Appearance General appearance: well-developed, appears stated age EENT: ATNC Neck: Present: neck supple, trachea midline Respiratory: Clear to Ascultation, Decreased Breath Sounds Heart: regular Gastrointestinal: Present: normal Integumentary: no rash, warm and dry Neurologic: no focal deficit Musculoskeletal: Present: deferred Psychiatric: cooperative Results - Lab Results 11/17/20 05:40 11/17/20 05:40 Most recent lab results Calcium 10.4 mg/dL (8.4-10.2) H 11/17/20 05:40 Phosphorus 8.50 mg/dL (2.5-4.5) H 11/16/20 12:29 Magnesium 2.30 mg/dL (1.7-2.3) 11/16/20 12:29 Assessment and Plan - Patient Problems (1) Hyperkalemia Current Visit: Yes Status: Chronic Plan to address problem: We will manage with hemodialysis. Please ensure that patient is on a low potassium diet. (2) Hypertensive chronic kidney disease with stage 5 chronic kidney disease or end stage renal disease Current Visit: Yes Status: Chronic Plan to address problem: Monitor blood pressure on the current regimen. We will also further optimize volume status with hemodialysis and appropriate ultrafiltration during treatments. Counseled patient on the importance of compliance with his dialysis treatments and maintaining a low-sodium diet. (3) GI bleed Current Visit: Yes Status: Acute Plan to address problem: Pending further evaluation by GI and possible EGD during this admission (4) Volume overload Current Visit: Yes Status: Acute Plan to address problem: Volume optimization with hemodialysis and ultrafiltration during treatments. (5) ESRD (end stage renal disease) on dialysis Current Visit: Yes Status: Chronic Plan to address problem: Placed on an inpatient Tuesday/Tuesday/Tuesday hemodialysis schedule
[2020-11-17] MEDS: LORazepam 2 MG/ML VIAL IV PRN (17:00)
--- NOTE | 2020-11-17 17:26 | Event Note ---
Date: 11/17/20 - full GI consult note disctated - plan egd in am
--- NOTE | 2020-11-18 03:40 | Consultation ---
DATE OF CONSULTATION: 11/17/2020 REFERRING PHYSICIAN: Kanu Hurtado. INDICATION: 1. Black stools. 2. Anemia. HISTORY OF PRESENT ILLNESS: The patient is a 30-year-old black male with history of end-stage renal disease, on dialysis; hypertension, presented for dark stools. The patient reports he has had black tarry stools for the last couple of days. The patient was recently discharged when he left the hospital prior to an EGD that was scheduled. He reported he had an urgent work to do. The patient reports black stools have returned and would like further evaluation. PAST MEDICAL HISTORY: 1. Hypertension. 2. End-stage renal disease. MEDICATIONS: Reviewed and updated in chart. ALLERGIES: No known drug allergies. SOCIAL HISTORY: Denies alcohol, tobacco or drug abuse. FAMILY HISTORY: Negative for colon cancer, IBD, or liver disease. REVIEW OF SYSTEMS: GENERAL: Reports some weakness. HEENT: No visual or tinnitus. PULMONARY: Denies shortness of breath, chest pain. GASTROINTESTINAL: Reports black stools. All points of 13-point review of system otherwise negative. PHYSICAL EXAMINATION: VITAL SIGNS: Temperature of 98.4, pulse 100, respirations 18, blood pressure 190/110. GENERAL: Fairly nourished black male in no acute distress. HEENT: Pupils round and reactive. Pulmonary rhonchi. CARDIOVASCULAR: Regular rate and rhythm. Normal S1, S2. ABDOMEN: Positive bowel sounds. SKIN: No obvious rashes. LABORATORY DATA: Pertinent for white count of 8.7, hemoglobin and hematocrit of 8 and 24, platelet count of 208. Chem-7: Sodium of 136, potassium 5.9, chloride 95, CO2 of 20, BUN and creatinine of 81 and 21.6. ASSESSMENT: A 30-year-old black male with: 1. History of end-stage renal disease, on dialysis. 2. Hypertension, now with recurrent black tarry stools and noted anemia. PLAN: 1. PPI IV b.i.d. 2. Follow hematocrit and transfuse as needed. 3. Plan EGD in a.m. 4. Further recommendations per Primary Team. TID: [id number] RECEIPT: [id number] CAB/PUN
[2020-11-18 06:22] LABS: Hematocrit 23.8 % (35.5-45.6); Hemoglobin 8.2 gm/dl (11.8-15.2); Mean Corpuscular HGB Conc 34 % (32-34); Mean Corpuscular Volume 92 fl (84-94); Platelet Count 200 K/mm3 (140-440); Red Blood Count 2.61 M/mm3 (3.65-5.03); Red Cell Distribution Width 15.4 % (13.2-15.2)
[2020-11-18 06:36] LABS: Calcium 10.1 mg/dL (8.4-10.2)
[2020-11-18] MEDS: MORPHINE 2 MG/1 ML INJ IV PRN (07:23)
--- NOTE | 2020-11-18 09:47 | Progress Note ---
Assessment and Plan Assessment and plan: Volume overload GI bleed Hyperkalemia Accelerated hypertension 11/17/20 Patient with ESRD on hemodialysis. was admitted here on 11/12 for GI Bleed, hyperkalemia but he signed out AMA on 11/15 and came back last night for shortness of breath after missing dialysis. Hyperkalemia. Give Insulin, Dextrose, calcium Gluconate. Nephrology consulted. GI re-consulted for dark stools. 11/18/2020. GI plans for endoscopy today. Hyperkalemia resolved with hemodialysis. Continue hemodialysis per nephrology. Anticipate discharge later today or in a.m. based on EGD results. H&H remained stable. History Interval history: No new issues overnight Hospitalist Physical - Constitutional Vitals: Temp Pulse Resp BP Pulse Ox 98.2 F 108 H 18 156/112 95 11/18/20 05:20 11/18/20 05:20 11/18/20 05:20 11/18/20 05:20 11/18/20 05:20 General appearance: Present: no acute distress, well-nourished - EENT Eyes: Present: PERRL, EOM intact ENT: hearing intact, clear oral mucosa, dentition normal - Neck Neck: Present: supple, normal ROM - Respiratory Respiratory effort: normal Respiratory: bilateral: CTA - Cardiovascular Rhythm: regular Heart Sounds: Present: S1 & S2. Absent: gallop, rub - Extremities Extremities: no ischemia, No edema, Full ROM - Abdominal General gastrointestinal: soft, non-tender, non-distended, normal bowel sounds - Integumentary Integumentary: Present: clear, warm, dry - Neurologic Neurologic: CNII-XII intact, moves all extremities Results - Labs CBC & Chem 7: 11/18/20 05:55 11/18/20 05:55 Labs: Laboratory Last Values WBC 7.0 K/mm3 (4.5-11.0) 11/18/20 05:55 RBC 2.61 M/mm3 (3.65-5.03) L 11/18/20 05:55 Hgb 8.2 gm/dl (11.8-15.2) L 11/18/20 05:55 Hct 23.8 % (35.5-45.6) L 11/18/20 05:55 MCV 92 fl (84-94) 11/18/20 05:55 MCH 31 pg (28-32) 11/18/20 05:55 MCHC 34 % (32-34) 11/18/20 05:55 RDW 15.4 % (13.2-15.2) H 11/18/20 05:55 Plt Count 200 K/mm3 (140-440) 11/18/20 05:55 Lymph % (Auto) 12.0 % (13.4-35.0) L 11/17/20 05:40 [place] % (Auto) 7.0 % (0.0-7.3) 11/17/20 05:40 Eos % (Auto) 6.2 % (0.0-4.3) H 11/17/20 05:40 Baso % (Auto) 0.6 % (0.0-1.8) 11/17/20 05:40 Lymph # (Auto) 1.0 K/mm3 (1.2-5.4) L 11/17/20 05:40 [place] # (Auto) 0.6 K/mm3 (0.0-0.8) 11/17/20 05:40 Eos # (Auto) 0.5 K/mm3 (0.0-0.4) H 11/17/20 05:40 Baso # (Auto) 0.1 K/mm3 (0.0-0.1) 11/17/20 05:40 Seg Neutrophils % 74.2 % (40.0-70.0) H 11/17/20 05:40 Seg Neutrophils # 6.4 K/mm3 (1.8-7.7) 11/17/20 05:40 PT 15.0 Sec. (12.2-14.9) H 11/16/20 12:29 INR 1.13 (0.87-1.13) 11/16/20 12:29 APTT 37.6 Sec. (24.2-36.6) H 11/16/20 12:29 Sodium 138 mmol/L (137-145) 11/18/20 05:55 Potassium 4.9 mmol/L (3.6-5.0) 11/18/20 05:55 Chloride 94.8 mmol/L (98-107) L 11/18/20 05:55 Carbon Dioxide 27 mmol/L (22-30) D 11/18/20 05:55 Anion Gap 21 mmol/L 11/18/20 05:55 BUN 40 mg/dL (9-20) H 11/18/20 05:55 Creatinine 13.6 mg/dL (0.8-1.3) H 11/18/20 05:55 Estimated GFR 5 ml/min 11/18/20 05:55 BUN/Creatinine Ratio 3 % 11/18/20 05:55 Glucose 100 mg/dL (75-100) 11/18/20 05:55 Calcium 10.1 mg/dL (8.4-10.2) 11/18/20 05:55 Phosphorus 8.50 mg/dL (2.5-4.5) H 11/16/20 12:29 Magnesium 2.30 mg/dL (1.7-2.3) 11/16/20 12:29 Total Bilirubin 0.30 mg/dL (0.1-1.2) 11/17/20 05:40 Direct Bilirubin < 0.2 mg/dL (0-0.2) 11/16/20 12:29 Indirect Bilirubin 0.2 mg/dL 11/16/20 12:29 AST 13 units/L (5-40) 11/17/20 05:40 ALT 6 units/L (7-56) L 11/17/20 05:40 Alkaline Phosphatase 283 units/L (35-129) H 11/17/20 05:40 Total Protein 7.4 g/dL (6.3-8.2) 11/17/20 05:40 Albumin 3.8 g/dL (3.9-5) L 11/17/20 05:40 Albumin/Globulin Ratio 1.1 % 11/17/20 05:40 Lipase 88 units/L (13-60) H 11/16/20 12:29 Walker/IV: Voiding Method Toilet Active Medications - Current Medications Current Medications: Generic Name Dose Route Start Last Admin Trade Name Freq PRN Reason Stop Dose Admin Acetaminophen 650 mg 11/16/20 21:16 Acetaminophen 325 Mg Tab PO Q4H PRN Pain MILD(1-3)/Fever >100.5/RUANO Carvedilol 25 mg 11/16/20 22:00 11/17/20 23:27 Carvedilol 25 Mg Tab PO 25 mg BID KRISTINE Administration Hydralazine HCl 50 mg 11/17/20 08:00 11/17/20 23:19 Hydralazine 25 Mg Tab PO 50 mg TID KRISTINE Administration Hydralazine HCl 10 mg 11/17/20 01:06 11/17/20 23:18 Hydralazine 20 Mg/1 Ml Inj IV 10 mg Q3H PRN Administration Blood Pressure Hydromorphone HCl 0.5 mg 11/16/20 21:16 Hydromorphone 1 Mg/1 Ml Inj IV Q3H PRN Pain , Severe (7-10) Sodium Chloride 100 mls @ 999 mls/hr 11/17/20 07:14 Nacl 0.9% IV LAMINE PRN Hypotension Lorazepam 1 mg 11/16/20 21:21 11/17/20 17:00 Lorazepam 2 Mg/Ml Vial IV 1 mg Q4H PRN Administration Anxiety Metoclopramide HCl 2.5 mg 11/16/20 21:23 Metoclopramide 10 Mg/2 Ml Inj IV Q6H PRN Nausea And Vomiting Morphine Sulfate 2 mg 11/16/20 21:16 11/18/20 07:23 Morphine 2 Mg/1 Ml Inj IV 2 mg Q4H PRN Administration Pain, Moderate (4-6) Nifedipine 30 mg 11/16/20 22:00 11/17/20 23:19 Nifedipine Xl 30 Mg Tab PO 30 mg BID KRISTINE Administration Ondansetron HCl 4 mg 11/16/20 21:16 Ondansetron 4 Mg/2 Ml Inj IV Q8H PRN Nausea And Vomiting Pantoprazole Sodium 40 mg 11/16/20 22:00 11/17/20 23:18 Pantoprazole 40 Mg Inj IV 40 mg BID KRISTINE Administration Sodium Chloride 10 ml 11/16/20 22:00 11/17/20 23:21 Sodium Chloride 0.9% 10 Ml Flush Syringe IV 10 ml BID KRISTINE Administration Sodium Chloride 10 ml 11/16/20 21:16 Sodium Chloride 0.9% 10 Ml Flush Syringe IV PRN PRN LINE FLUSH
[2020-11-18] MEDS: carvediloL 25 MG TAB PO SCH ×2 (10:03→22:21)
[2020-11-18] MEDS: hydrALAZINE 25 MG TAB PO SCH ×3 (10:03→20:18)
[2020-11-18] MEDS: NIFEdipine XL 30 MG TAB PO SCH ×2 (10:03→22:23)
[2020-11-18] MEDS: PANTOPRAZOLE 40 MG INJ IV SCH ×2 (10:04→21:00)
--- NOTE | 2020-11-18 12:38 | Progress Note ---
Assessment and Plan - Patient Problems (1) Hyperkalemia Current Visit: Yes Status: Chronic Plan to address problem: We will manage with hemodialysis. Please ensure that patient is on a low potassium diet. improved this morning. (2) Hypertensive chronic kidney disease with stage 5 chronic kidney disease or end stage renal disease Current Visit: Yes Status: Chronic Plan to address problem: Monitor blood pressure on the current regimen. We will also further optimize volume status with hemodialysis and appropriate ultrafiltration during treatments. Counseled patient on the importance of compliance with his dialysis treatments and maintaining a low-sodium diet. (3) GI bleed Current Visit: Yes Status: Acute Plan to address problem: Pending further evaluation by GI and possible EGD during this admission plan for EGD this morning. (4) Volume overload Current Visit: Yes Status: Acute Plan to address problem: Volume optimization with hemodialysis and ultrafiltration during treatments. (5) ESRD (end stage renal disease) on dialysis Current Visit: Yes Status: Chronic Plan to address problem: Placed on an inpatient Tuesday/Tuesday/Tuesday hemodialysis schedule Subjective Date of service: 11/18/20 Interval history: no acute issues overnight. Pending EGD this morning. Tolerated hemodialysis well yesterday without any acute complications. Labs showing improvement in serum potassium levels. Objective - Vital Signs Vital signs: Vital Signs - 12hr 11/18/20 05:20 Temperature 98.2 F Pulse Rate 108 H Respiratory 18 Rate Blood Pressure 156/112 O2 Sat by Pulse 95 Oximetry - General Appearance General appearance: well-developed, appears stated age EENT: ATNC Neck: no JVD Respiratory: Present: Clear to Ascultation Cardiology: regular Gastrointestinal: normal Integumentary: no rash Neurologic: no focal deficit Musculoskeletal: deferred Psychiatric: cooperative - Lab 11/18/20 05:55 11/18/20 05:55 Most recent lab results Calcium 10.1 mg/dL (8.4-10.2) 11/18/20 05:55 Phosphorus 8.50 mg/dL (2.5-4.5) H 11/16/20 12:29 Magnesium 2.30 mg/dL (1.7-2.3) 11/16/20 12:29 - Allied health notes Allied health notes reviewed: nursing Medications & Allergies - Medications Allergies/Adverse Reactions: Allergies No Known Allergies Allergy (Verified 11/11/20 14:47) Home Medications: Home Medications Medication Instructions Recorded Confirmed Last Taken Type NIFEdipine 25 mg PO BID 11/13/20 11/13/20 2 Days Ago History ~11/11/20 25 mg carvediloL [Coreg] 25 mg PO BID 11/13/20 11/13/20 2 Days Ago History ~11/11/20 25 mg hydrALAZINE 60 mg PO TID 11/13/20 11/13/20 2 Days Ago History ~11/11/20 60 mg Active Medications: Generic Name Dose Route Start Last Admin Trade Name Freq PRN Reason Stop Dose Admin Acetaminophen 650 mg 11/16/20 21:16 Acetaminophen 325 Mg Tab PO Q4H PRN Pain MILD(1-3)/Fever >100.5/RUANO Carvedilol 25 mg 11/16/20 22:00 11/18/20 10:03 Carvedilol 25 Mg Tab PO 25 mg BID KRISTINE Administration Hydralazine HCl 50 mg 11/17/20 08:00 11/18/20 10:03 Hydralazine 25 Mg Tab PO 50 mg TID KRISTINE Administration Hydralazine HCl 10 mg 11/17/20 01:06 11/17/20 23:18 Hydralazine 20 Mg/1 Ml Inj IV 10 mg Q3H PRN Administration Blood Pressure Hydromorphone HCl 0.5 mg 11/16/20 21:16 Hydromorphone 1 Mg/1 Ml Inj IV Q3H PRN Pain , Severe (7-10) Sodium Chloride 100 mls @ 999 mls/hr 11/17/20 07:14 Nacl 0.9% IV LAMINE PRN Hypotension Lorazepam 1 mg 11/16/20 21:21 11/17/20 17:00 Lorazepam 2 Mg/Ml Vial IV 1 mg Q4H PRN Administration Anxiety Metoclopramide HCl 2.5 mg 11/16/20 21:23 Metoclopramide 10 Mg/2 Ml Inj IV Q6H PRN Nausea And Vomiting Morphine Sulfate 2 mg 11/16/20 21:16 11/18/20 07:23 Morphine 2 Mg/1 Ml Inj IV 2 mg Q4H PRN Administration Pain, Moderate (4-6) Nifedipine 30 mg 11/16/20 22:00 11/18/20 10:03 Nifedipine Xl 30 Mg Tab PO 30 mg BID KRISTINE Administration Ondansetron HCl 4 mg 11/16/20 21:16 Ondansetron 4 Mg/2 Ml Inj IV Q8H PRN Nausea And Vomiting Pantoprazole Sodium 40 mg 11/16/20 22:00 11/18/20 10:04 Pantoprazole 40 Mg Inj IV 40 mg BID KRISTINE Administration Sodium Chloride 10 ml 11/16/20 22:00 11/18/20 10:04 Sodium Chloride 0.9% 10 Ml Flush Syringe IV 10 ml BID KRISTINE Administration Sodium Chloride 10 ml 11/16/20 21:16 Sodium Chloride 0.9% 10 Ml Flush Syringe IV PRN PRN LINE FLUSH
[2020-11-18] MEDS ORDERED: SODIUM CHLORIDE 0.9% 1000 ML 1,000 ML ONE (13:39)
--- NOTE | 2020-11-18 14:36 | Anesthesia Consultation ---
Anesthesia Consult and Med Hx - Airway Anesthetic Teeth Evaluation: Good ROM Head & Neck: Adequate Mental/Hyoid Distance: Adequate Mallampati Class: Class III Intubation Access Assessment: Possibly Difficult - Pre-Operative Health Status ASA Pre-Surgery Classification: ASA3 Proposed Anesthetic Plan: MAC - Pulmonary Hx Smoking: Yes (3 cigs/day) Hx Respiratory Symptoms: No - Cardiovascular System Hx Hypertension: Yes Hx Heart Attack/AMI: No Hx Percutaneous Transluminal Coronary Angioplasty (PTCA): No - Central Nervous System CVA: No - Endocrine Hx End Stage Renal Disease: Yes (last HD 11/17/20) Hx Liver Disease: No Hx Insulin Dependent Diabetes: No Hx Non-Insulin Dependent Diabetes: No Hx Thyroid Disease: No - Hematic Hx Anemia: Yes - Other Systems Hx Obesity: No - Additional Comments Anesthesia Medical History Comments: No hx anesthetic complications. Hx PE in 2020 no longer on anticoagulation.
--- NOTE | 2020-11-18 14:56 | Anesthesia Day of Surgery ---
Anesthesia Day of Surgery - Day of Surgery Patient Examined: Yes Patient H&P Reviewed: Yes Patient is NPO: Yes
[2020-11-18] MEDS: HYDROmorphone 1 MG/1 ML INJ IV PRN (20:57)
[2020-11-18] MEDS: LORazepam 2 MG/ML VIAL IV PRN (21:04)
[2020-11-19] MEDS: hydrALAZINE 20 MG/1 ML INJ IV PRN ×2 (01:30→06:32)
[2020-11-19] MEDS: HYDROmorphone 1 MG/1 ML INJ IV PRN ×2 (03:06→18:32)
[2020-11-19] MEDS: MORPHINE 2 MG/1 ML INJ IV PRN ×3 (03:14→21:23)
[2020-11-19 07:07] LABS: Hematocrit 27.3 % (35.5-45.6); Hemoglobin 9.3 gm/dl (11.8-15.2); Mean Corpuscular HGB Conc 34 % (32-34); Mean Corpuscular Volume 91 fl (84-94); Platelet Count 251 K/mm3 (140-440); Red Cell Distribution Width 15.2 % (13.2-15.2)
--- NOTE | 2020-11-19 07:58 | Discharge Summary ---
Providers - Providers Date of Admission: 11/17/20 09:16 Date of discharge: 11/19/20 Attending physician: ERICK STARKS 11/16/20 14:44 Consult to Physician [CONS] Urgent Comment: Consulting Provider: FRANCI PARMAR Physician Instructions: Reason For Exam: dialysis 11/17/20 01:09 Consult to Physician [CONS] Routine Comment: Consulting Provider: ART BURGOS Physician Instructions: Reason For Exam: GI bleed Primary care physician: MOTOR DRIVER Hospitalization Reason for admission: Missed HD and melena. Condition: Stable Hospital course: 30-year-old -[place] male with history of end-stage renal disease and hypertension comes in for shortness of breath. Patient missed one episode episode of hemodialysis. Hemodialysis was due on Tuesday. Patient states that he is still having dark tarry stools approximately 2/day. Shortness of breath on minimal exertion present. Also shortness of breath and not lying flat. No fever or chills. No exposure to Covid virus. Patient is vaccinated against COVID-19. Patient was supposed to have EGD on 11/15/2020 but patient left hospital AGAINST MEDICAL ADVICE saying that he has some urgent work. The patient was admitted to the hospital with diagnosis of volume overload with missed HD, GI bleed, hyperkalemia, medical noncompliance, accelerated hypertension and melena. The patient was seen by nephrology and GI consultation. Patient received calcium gluconate and bicarbonate for the hyperkalemia initially and then underwent hemodialysis after admission. Patient's volume overload resolved. The patient was seen by GI and scheduled for EGD. However, Immediately prior to procedure, patient disclosed to [employer] SUPERVISOR that he had eaten cookies 5 hrs earlier. He had previously reported being NPO since midnight. Upon further questioning, patient stated that he ate cookies sometime this morning but was unsure of the time, possibly [id number]. Anesthesiologist explained to the patient the increased risk of aspiration if he was not appropriately NPO. He verbalized understanding but could not determine when he last ate. Discussed with GI MD. Case was postponed due to NPO violation. Stressed to patient the importance of remaining appropriately NPO prior to procedure once rescheduled. The patient will have EGD today and if found to be stable with no active bleeding, patient will be discharged home with Protonix. Dedicated discharge time 35 minutes Disposition: 30 STILL A PATIENT Final Discharge Diagnosis (Prints w/discharge instructions): volume overload with missed HD, GI bleed, hyperkalemia, medical noncompliance, accelerated hypertension and melena. Core Measure Documentation - Palliative Care Palliative Care/ Comfort Measures: Not Applicable - Core Measures Any of the following diagnoses?: none Exam - Constitutional Vitals: Temp Pulse Resp BP Pulse Ox 98.4 F 108 H 18 184/108 96 11/19/20 04:59 11/19/20 06:32 11/19/20 04:59 11/19/20 06:32 11/19/20 04:59 General appearance: Present: no acute distress, well-nourished - EENT Eyes: Present: PERRL ENT: hearing intact, clear oral mucosa - Neck Neck: Present: supple, normal ROM - Respiratory Respiratory effort: normal Respiratory: bilateral: CTA - Cardiovascular Heart Sounds: Present: S1 & S2. Absent: rub, click - Extremities Extremities: pulses symmetrical, No edema Peripheral Pulses: within normal limits - Abdominal General gastrointestinal: Present: soft, non-tender, non-distended, normal bowel sounds Male genitourinary: Present: normal - Integumentary Integumentary: Present: clear, warm, dry - Musculoskeletal Musculoskeletal: gait normal, strength equal bilaterally - Psychiatric Psychiatric: appropriate mood/affect, intact judgment & insight - Neurologic Neurologic: CNII-XII intact, moves all extremities Plan Activity: advance as tolerated Weight Bearing Status: Weight Bear as Tolerated Diet: regular Follow up with: ART BURGOS MD [Staff Physician] - 7 Days PRIMARY CARE, [Primary Care Provider] - 7 Days ABBIE SOLIS DO [Staff Physician] - 7 Days Forms: Accompanied Note Prescriptions: hydrALAZINE [Apresoline TAB] 100 mg PO TID #90 tablet carvediloL [Coreg] 25 mg PO BID #60 NIFEdipine XL [Procardia Xl] 60 mg PO BID #60 tablet Pantoprazole [Protonix] 40 mg PO BID #60 tablet
[2020-11-19 08:21] LABS: Calcium 10.9 mg/dL (8.4-10.2)
[2020-11-19 08:29] LABS: Total Cells Counted 100
[2020-11-19 08:30] LABS: Anisocytosis 1+; Platelet Estimate Consistent w Auto
--- NOTE | 2020-11-19 09:24 | Event Note ---
Date: 11/19/20 Patient seen and examined and denies any complaints. Patient was planned to have EGD today and potential discharge afterwards if normal. However, a.m. labs revealed potassium 6.7. We will initiate insulin/D50. I instructed the nurse to arrange for hemodialysis this morning given the hyperkalemia. Patient is regularly scheduled for Tuesday, Tuesday, Tuesday. Patient can possibly have EGD after hemodialysis this afternoon and then still discharged home.
[2020-11-19] MEDS ORDERED: INSULIN REGULAR, HUMAN 100 UNITS/1 ML IV ONE (09:30)
[2020-11-19] MEDS ORDERED: DEXTROSE 50% IN WATER (25GM) 50 ML SYRINGE IV ONE (09:30)
--- NOTE | 2020-11-19 10:14 | Progress Note ---
Assessment and Plan - Patient Problems (1) Hyperkalemia Current Visit: Yes Status: Chronic Plan to address problem: We will manage with hemodialysis. Please ensure that patient is on a low potassium diet. Elevated potassium levels noted, and adjustments made to dialysate bath/discussed with dialysis staff. (2) Hypertensive chronic kidney disease with stage 5 chronic kidney disease or end stage renal disease Current Visit: Yes Status: Chronic Plan to address problem: Monitor blood pressure on the current regimen. We will also further optimize volume status with hemodialysis and appropriate ultrafiltration during treatments. Counseled patient on the importance of compliance with his dialysis treatments and maintaining a low-sodium diet. (3) GI bleed Current Visit: Yes Status: Acute Plan to address problem: Pending further evaluation by GI and possible EGD during this admission plan for EGD possibly this afternoon after HD (4) Volume overload Current Visit: Yes Status: Acute Plan to address problem: Volume optimization with hemodialysis and ultrafiltration during treatments. (5) ESRD (end stage renal disease) on dialysis Current Visit: Yes Status: Chronic Plan to address problem: Placed on an inpatient Tuesday/Tuesday/Tuesday hemodialysis schedule Subjective Date of service: 11/19/20 Interval history: EGD was postponed as patient had ate cookies in the am of the procedure. Labs noted with significant hyperkalemia this am. Plan for HD and possible EGD later this afternoon. Objective - Vital Signs Vital signs: Vital Signs - 12hr 11/18/20 11/19/20 11/19/20 22:21 00:48 01:30 Temperature 98.7 F Pulse Rate 110 H 109 H 109 H Respiratory 20 Rate Blood Pressure 189/130 185/129 185/129 O2 Sat by Pulse 96 Oximetry 11/19/20 11/19/20 04:59 06:32 Temperature 98.4 F Pulse Rate 111 H 108 H Respiratory 18 Rate Blood Pressure 184/108 184/108 O2 Sat by Pulse 96 Oximetry - General Appearance General appearance: well-developed, appears stated age EENT: ATNC Neck: no JVD Respiratory: Present: Clear to Ascultation, Normal Exam Cardiology: regular Gastrointestinal: normal, normoactive bowel sounds Integumentary: no rash Neurologic: no focal deficit Musculoskeletal: deferred Psychiatric: cooperative - Lab 11/19/20 06:25 11/19/20 06:25 Most recent lab results Calcium 10.9 mg/dL (8.4-10.2) H 11/19/20 06:25 Phosphorus 8.50 mg/dL (2.5-4.5) H 11/16/20 12:29 Magnesium 2.30 mg/dL (1.7-2.3) 11/16/20 12:29 - Imaging Chest x-ray: pending - Allied health notes Allied health notes reviewed: nursing Medications & Allergies - Medications Allergies/Adverse Reactions: Allergies No Known Allergies Allergy (Verified 11/11/20 14:47) Home Medications: Home Medications Medication Instructions Recorded Confirmed Last Taken Type NIFEdipine XL [Procardia Xl] 60 mg PO BID #60 tablet 11/19/20 Unknown Rx Pantoprazole [Protonix] 40 mg PO BID #60 tablet 11/19/20 Unknown Rx carvediloL [Coreg] 25 mg PO BID #60 11/19/20 Unknown Rx hydrALAZINE [Apresoline TAB] 100 mg PO TID #90 tablet 11/19/20 Unknown Rx Active Medications: Generic Name Dose Route Start Last Admin Trade Name Migueq PRN Reason Stop Dose Admin Acetaminophen 650 mg 11/16/20 21:16 Acetaminophen 325 Mg Tab PO Q4H PRN Pain MILD(1-3)/Fever >100.5/RUANO Carvedilol 25 mg 11/16/20 22:00 11/18/20 22:21 Carvedilol 25 Mg Tab PO 25 mg BID KRISTINE Administration Hydralazine HCl 50 mg 11/17/20 08:00 11/18/20 20:18 Hydralazine 25 Mg Tab PO 50 mg TID KRISTINE Administration Hydralazine HCl 10 mg 11/17/20 01:06 11/19/20 06:32 Hydralazine 20 Mg/1 Ml Inj IV 10 mg Q3H PRN Administration Blood Pressure Hydromorphone HCl 0.5 mg 11/16/20 21:16 11/18/20 20:57 Hydromorphone 1 Mg/1 Ml Inj IV 0.5 mg Q3H PRN Administration Pain , Severe (7-10) Sodium Chloride 100 mls @ 999 mls/hr 11/17/20 07:14 Nacl 0.9% IV LAMINE PRN Hypotension Lorazepam 1 mg 11/16/20 21:21 11/18/20 21:04 Lorazepam 2 Mg/Ml Vial IV 1 mg Q4H PRN Administration Anxiety Metoclopramide HCl 2.5 mg 11/16/20 21:23 11/19/20 02:51 Metoclopramide 10 Mg/2 Ml Inj IV 2.5 mg Q6H PRN Administration Nausea And Vomiting Morphine Sulfate 2 mg 11/16/20 21:16 11/19/20 03:14 Morphine 2 Mg/1 Ml Inj IV 2 mg Q4H PRN Administration Pain, Moderate (4-6) Nifedipine 30 mg 11/16/20 22:00 11/18/20 22:23 Nifedipine Xl 30 Mg Tab PO 30 mg BID KRISTINE Administration Ondansetron HCl 4 mg 11/16/20 21:16 11/19/20 06:34 Ondansetron 4 Mg/2 Ml Inj IV 4 mg Q8H PRN Administration Nausea And Vomiting Pantoprazole Sodium 40 mg 11/16/20 22:00 11/18/20 21:00 Pantoprazole 40 Mg Inj IV 40 mg BID KRISTINE Administration Sodium Chloride 10 ml 11/16/20 22:00 11/18/20 22:23 Sodium Chloride 0.9% 10 Ml Flush Syringe IV 10 ml BID KRISTINE Administration Sodium Chloride 10 ml 11/16/20 21:16 Sodium Chloride 0.9% 10 Ml Flush Syringe IV PRN PRN LINE FLUSH
[2020-11-19] MEDS: NIFEdipine XL 30 MG TAB PO SCH ×2 (10:21→21:31)
[2020-11-19] MEDS: PANTOPRAZOLE 40 MG INJ IV SCH ×2 (10:21→21:24)
[2020-11-19] MEDS: carvediloL 25 MG TAB PO SCH ×2 (10:21→21:31)
[2020-11-19] MEDS: hydrALAZINE 25 MG TAB PO SCH ×3 (10:21→21:30)
[2020-11-19] MEDS: LORazepam 2 MG/ML VIAL IV PRN ×2 (11:38→21:23)
--- NOTE | 2020-11-19 14:24 | Gastroenterology Progress Note ---
Assessment and Plan GI: pt unable to have procedure because he ate - follow h/h - plan EGD in am - continue other meds and diet Subjective Date of service: 11/18/20 Interval history: - pt reproted eating, procedure called off by Donald Objective - Constitutional Vitals: Temp Pulse Resp BP Pulse Ox 98.7 F 109 H 18 104/63 93 11/19/20 11:16 11/19/20 13:45 11/19/20 11:16 11/19/20 13:45 11/19/20 11:16 General appearance: no acute distress - EENT Eyes: PERRL - Respiratory Respiratory: bilateral: CTA - Cardiovascular Rhythm: regular Heart Sounds: Present: S1 & S2 - Gastrointestinal General gastrointestinal: Present: soft, non-tender, non-distended - Labs CBC & Chem 7: 11/19/20 06:25 11/19/20 06:25 Labs: Laboratory Results - last 24 hr 11/18/20 11/19/20 11/19/20 21:31 06:25 06:25 WBC 10.5 RBC 3.00 L Hgb 9.3 L Hct 27.3 L MCV 91 MCH 31 MCHC 34 RDW 15.2 Plt Count 251 Add Manual Diff Complete Total Counted 100 Seg Neuts % (Manual) 73.0 H Lymphocytes % (Manual) 12.0 L Monocytes % (Manual) 8.0 H Eosinophils % (Manual) 5.0 H Basophils % (Manual) 2.0 H Nucleated RBC % Not Reportable Seg Neutrophils # Man 7.7 Band Neutrophils # 0.0 Lymphocytes # (Manual) 1.3 Abs React Lymphs (Man) 0.0 Monocytes # (Manual) 0.8 Eosinophils # (Manual) 0.5 H Basophils # (Manual) 0.2 H Metamyelocytes # 0.0 Myelocytes # 0.0 Promyelocytes # 0.0 Blast Cells # 0.0 WBC Morphology Not Reportable Hypersegmented Neuts Not Reportable Hyposegmented Neuts Not Reportable Hypogranular Neuts Not Reportable Smudge Cells Not Reportable Toxic Granulation Not Reportable Toxic Vacuolation Not Reportable Dohle Bodies Not Reportable Pelger-Huet Anomaly Not Reportable Elda Rods Not Reportable Platelet Estimate Consistent w auto Clumped Platelets Not Reportable Plt Clumps, EDTA Not Reportable Large Platelets Not Reportable Giant Platelets Not Reportable Platelet Satelliting Not Reportable Plt Morphology Comment Not Reportable RBC Morphology Not Reportable Dimorphic RBCs Not Reportable Polychromasia Not Reportable Hypochromasia Not Reportable Poikilocytosis Not Reportable Anisocytosis 1+ Microcytosis Not Reportable Macrocytosis Not Reportable Spherocytes Not Reportable Pappenheimer Bodies Not Reportable Sickle Cells Not Reportable Target Cells Not Reportable Tear Drop Cells Not Reportable Ovalocytes Not Reportable Helmet Cells Not Reportable Patel-[place] Bodies Not Reportable [place] Rings Not Reportable Reyno Cells Not Reportable Bite Cells Not Reportable Crenated Cell Not Reportable Elliptocytes Not Reportable Acanthocytes (Spur) Not Reportable Rouleaux Not Reportable Hemoglobin C Crystals Not Reportable Schistocytes Not Reportable Malaria parasites Not Reportable Jas Bodies Not Reportable Hem Pathologist Commnt No Sodium 137 Potassium 6.7 H* D Chloride 93.2 L Carbon Dioxide 25 Anion Gap 26 BUN 58 H Creatinine 17.1 H Estimated GFR 4 BUN/Creatinine Ratio 3 Glucose 99 POC Glucose 100 Calcium 10.9 H
--- NOTE | 2020-11-19 16:47 | Gastroenterology Progress Note ---
Assessment and Plan 1. GI: presented w/ melena and anemia now stable - continue PPI qd - pt to be dc'ed and will set up follow up and EGD as outpt - if pt still in hospital will schedule egd for am Subjective Date of service: 11/19/20 Interval history: pt wants to go home, denies GI compalints Objective - Constitutional Vitals: Temp Pulse Resp BP Pulse Ox 98.4 F 103 H 18 143/81 100 11/19/20 14:50 11/19/20 14:50 11/19/20 14:50 11/19/20 14:50 11/19/20 14:50 General appearance: no acute distress - EENT Eyes: PERRL - Respiratory Respiratory: bilateral: CTA - Cardiovascular Rhythm: regular Heart Sounds: Present: S1 & S2 - Gastrointestinal General gastrointestinal: Present: soft, non-tender, non-distended - Labs CBC & Chem 7: 11/19/20 06:25 11/19/20 06:25 Labs: Laboratory Results - last 24 hr 11/18/20 11/19/20 11/19/20 21:31 06:25 06:25 WBC 10.5 RBC 3.00 L Hgb 9.3 L Hct 27.3 L MCV 91 MCH 31 MCHC 34 RDW 15.2 Plt Count 251 Add Manual Diff Complete Total Counted 100 Seg Neuts % (Manual) 73.0 H Lymphocytes % (Manual) 12.0 L Monocytes % (Manual) 8.0 H Eosinophils % (Manual) 5.0 H Basophils % (Manual) 2.0 H Nucleated RBC % Not Reportable Seg Neutrophils # Man 7.7 Band Neutrophils # 0.0 Lymphocytes # (Manual) 1.3 Abs React Lymphs (Man) 0.0 Monocytes # (Manual) 0.8 Eosinophils # (Manual) 0.5 H Basophils # (Manual) 0.2 H Metamyelocytes # 0.0 Myelocytes # 0.0 Promyelocytes # 0.0 Blast Cells # 0.0 WBC Morphology Not Reportable Hypersegmented Neuts Not Reportable Hyposegmented Neuts Not Reportable Hypogranular Neuts Not Reportable Smudge Cells Not Reportable Toxic Granulation Not Reportable Toxic Vacuolation Not Reportable Dohle Bodies Not Reportable Pelger-Huet Anomaly Not Reportable Elda Rods Not Reportable Platelet Estimate Consistent w auto Clumped Platelets Not Reportable Plt Clumps, EDTA Not Reportable Large Platelets Not Reportable Giant Platelets Not Reportable Platelet Satelliting Not Reportable Plt Morphology Comment Not Reportable RBC Morphology Not Reportable Dimorphic RBCs Not Reportable Polychromasia Not Reportable Hypochromasia Not Reportable Poikilocytosis Not Reportable Anisocytosis 1+ Microcytosis Not Reportable Macrocytosis Not Reportable Spherocytes Not Reportable Pappenheimer Bodies Not Reportable Sickle Cells Not Reportable Target Cells Not Reportable Tear Drop Cells Not Reportable Ovalocytes Not Reportable Helmet Cells Not Reportable Patel-[place] Bodies Not Reportable [place] Rings Not Reportable [place] Cells Not Reportable Bite Cells Not Reportable Crenated Cell Not Reportable Elliptocytes Not Reportable Acanthocytes (Spur) Not Reportable Rouleaux Not Reportable Hemoglobin C Crystals Not Reportable Schistocytes Not Reportable Malaria parasites Not Reportable Jas Bodies Not Reportable Hem Pathologist Commnt No Sodium 137 Potassium 6.7 H* D Chloride 93.2 L Carbon Dioxide 25 Anion Gap 26 BUN 58 H Creatinine 17.1 H Estimated GFR 4 BUN/Creatinine Ratio 3 Glucose 99 POC Glucose 100 Calcium 10.9 H
[2020-11-20] MEDS ORDERED: diphenhydrAMINE 50 MG/ML VIAL IV ONE (02:56)
[2020-11-20] MEDS: HYDROmorphone 1 MG/1 ML INJ IV PRN (03:02)
[2020-11-20] MEDS: hydrALAZINE 20 MG/1 ML INJ IV PRN (05:27)
[2020-11-20] MEDS: LORazepam 2 MG/ML VIAL IV PRN (05:28)
[2020-11-20] MEDS: MORPHINE 2 MG/1 ML INJ IV PRN ×2 (05:30→09:30)
[2020-11-20 06:34] LABS: Calcium 10.3 mg/dL (8.4-10.2)
[2020-11-20] MEDS: NIFEdipine XL 30 MG TAB PO SCH (09:13)
[2020-11-20] MEDS: hydrALAZINE 25 MG TAB PO SCH ×2 (09:13→15:47)
[2020-11-20] MEDS: carvediloL 25 MG TAB PO SCH (09:13)
[2020-11-20] MEDS: PANTOPRAZOLE 40 MG INJ IV SCH (09:14)
[2020-11-20] MEDS ORDERED: WATER FOR IRRIG STERILE 1,000 ML BOTTLE ONE (09:15)
[2020-11-20] MEDS ORDERED: SODIUM CHLORIDE 0.9% 1000 ML 1,000 ML ONE (09:15)
[2020-11-20] MEDS ORDERED: WATER FOR IRRIG STERILE 250 ML BOTTLE IR ONE (09:15)
--- NOTE | 2020-11-20 10:35 | Progress Note ---
Assessment and Plan Assessment and plan: Volume overload GI bleed Hyperkalemia Accelerated hypertension 11/17/20 Patient with ESRD on hemodialysis. was admitted here on 11/12 for GI Bleed, hyperkalemia but he signed out AMA on 11/15 and came back last night for shortness of breath after missing dialysis. Hyperkalemia. Give Insulin, Dextrose, calcium Gluconate. Nephrology consulted. GI re-consulted for dark stools. 11/18/2020. GI plans for endoscopy today. Hyperkalemia resolved with hemodialysis. Continue hemodialysis per nephrology. Anticipate discharge later today or in a.m. based on EGD results. H&H remained stable. 11/19/2020. Patient seen and examined and denies any complaints. Patient was planned to have EGD today and potential discharge afterwards if normal. However, a.m. labs revealed potassium 6.7. We will initiate insulin/D50. I instructed the nurse to arrange for hemodialysis this morning given the hyperkalemia. Patient is regularly scheduled for Tuesday, Tuesday, Tuesday. Patient can possibly have EGD after hemodialysis this afternoon and then still discharged home. History Interval history: No new issues overnight Hospitalist Physical - Constitutional Vitals: Temp Pulse Resp BP Pulse Ox 98.2 F 56 L 18 155/101 96 11/20/20 04:36 11/20/20 09:11 11/20/20 09:11 11/20/20 09:11 11/20/20 09:11 General appearance: Present: no acute distress, well-nourished - EENT Eyes: Present: PERRL, EOM intact ENT: hearing intact, clear oral mucosa, dentition normal - Neck Neck: Present: supple, normal ROM - Respiratory Respiratory effort: normal Respiratory: bilateral: CTA - Cardiovascular Rhythm: regular Heart Sounds: Present: S1 & S2. Absent: gallop, rub - Extremities Extremities: no ischemia, No edema, Full ROM - Abdominal General gastrointestinal: soft, non-tender, non-distended, normal bowel sounds - Integumentary Integumentary: Present: clear, warm, dry - Neurologic Neurologic: CNII-XII intact, moves all extremities Results - Labs CBC & Chem 7: 11/19/20 06:25 11/20/20 05:36 Labs: Laboratory Last Values WBC 10.5 K/mm3 (4.5-11.0) 11/19/20 06:25 RBC 3.00 M/mm3 (3.65-5.03) L 11/19/20 06:25 Hgb 9.3 gm/dl (11.8-15.2) L 11/19/20 06:25 Hct 27.3 % (35.5-45.6) L 11/19/20 06:25 MCV 91 fl (84-94) 11/19/20 06:25 MCH 31 pg (28-32) 11/19/20 06:25 MCHC 34 % (32-34) 11/19/20 06:25 RDW 15.2 % (13.2-15.2) 11/19/20 06:25 Plt Count 251 K/mm3 (140-440) 11/19/20 06:25 Lymph % (Auto) 12.0 % (13.4-35.0) L 11/17/20 05:40 Saunders % (Auto) 7.0 % (0.0-7.3) 11/17/20 05:40 Eos % (Auto) 6.2 % (0.0-4.3) H 11/17/20 05:40 Baso % (Auto) 0.6 % (0.0-1.8) 11/17/20 05:40 Lymph # (Auto) 1.0 K/mm3 (1.2-5.4) L 11/17/20 05:40 Saunders # (Auto) 0.6 K/mm3 (0.0-0.8) 11/17/20 05:40 Eos # (Auto) 0.5 K/mm3 (0.0-0.4) H 11/17/20 05:40 Baso # (Auto) 0.1 K/mm3 (0.0-0.1) 11/17/20 05:40 Add Manual Diff Complete 11/19/20 06:25 Total Counted 100 11/19/20 06:25 Seg Neutrophils % 74.2 % (40.0-70.0) H 11/17/20 05:40 Seg Neuts % (Manual) 73.0 % (40.0-70.0) H 11/19/20 06:25 Lymphocytes % (Manual) 12.0 % (13.4-35.0) L 11/19/20 06:25 Monocytes % (Manual) 8.0 % (0.0-7.3) H 11/19/20 06:25 Eosinophils % (Manual) 5.0 % (0.0-4.3) H 11/19/20 06:25 Basophils % (Manual) 2.0 % (0.0-1.8) H 11/19/20 06:25 Nucleated RBC % Not Reportable 11/19/20 06:25 Seg Neutrophils # 6.4 K/mm3 (1.8-7.7) 11/17/20 05:40 Seg Neutrophils # Man 7.7 K/mm3 (1.8-7.7) 11/19/20 06:25 Band Neutrophils # 0.0 K/mm3 11/19/20 06:25 Lymphocytes # (Manual) 1.3 K/mm3 (1.2-5.4) 11/19/20 06:25 Abs React Lymphs (Man) 0.0 K/mm3 11/19/20 06:25 Monocytes # (Manual) 0.8 K/mm3 (0.0-0.8) 11/19/20 06:25 Eosinophils # (Manual) 0.5 K/mm3 (0.0-0.4) H 11/19/20 06:25 Basophils # (Manual) 0.2 K/mm3 (0.0-0.1) H 11/19/20 06:25 Metamyelocytes # 0.0 K/mm3 11/19/20 06:25 Myelocytes # 0.0 K/mm3 11/19/20 06:25 Promyelocytes # 0.0 K/mm3 11/19/20 06:25 Blast Cells # 0.0 K/mm3 11/19/20 06:25 WBC Morphology Not Reportable 11/19/20 06:25 Hypersegmented Neuts Not Reportable 11/19/20 06:25 Hyposegmented Neuts Not Reportable 11/19/20 06:25 Hypogranular Neuts Not Reportable 11/19/20 06:25 Smudge Cells Not Reportable 11/19/20 06:25 Toxic Granulation Not Reportable 11/19/20 06:25 Toxic Vacuolation Not Reportable 11/19/20 06:25 Dohle Bodies Not Reportable 11/19/20 06:25 Pelger-Huet Anomaly Not Reportable 11/19/20 06:25 Elda Rods Not Reportable 11/19/20 06:25 Platelet Estimate Consistent w auto 11/19/20 06:25 Clumped Platelets Not Reportable 11/19/20 06:25 Plt Clumps, EDTA Not Reportable 11/19/20 06:25 Large Platelets Not Reportable 11/19/20 06:25 Giant Platelets Not Reportable 11/19/20 06:25 Platelet Satelliting Not Reportable 11/19/20 06:25 Plt Morphology Comment Not Reportable 11/19/20 06:25 RBC Morphology Not Reportable 11/19/20 06:25 Dimorphic RBCs Not Reportable 11/19/20 06:25 Polychromasia Not Reportable 11/19/20 06:25 Hypochromasia Not Reportable 11/19/20 06:25 Poikilocytosis Not Reportable 11/19/20 06:25 Anisocytosis 1+ 11/19/20 06:25 Microcytosis Not Reportable 11/19/20 06:25 Macrocytosis Not Reportable 11/19/20 06:25 Spherocytes Not Reportable 11/19/20 06:25 Pappenheimer Bodies Not Reportable 11/19/20 06:25 Sickle Cells Not Reportable 11/19/20 06:25 Target Cells Not Reportable 11/19/20 06:25 Tear Drop Cells Not Reportable 11/19/20 06:25 Ovalocytes Not Reportable 11/19/20 06:25 Helmet Cells Not Reportable 11/19/20 06:25 Patel-[place] Bodies Not Reportable 11/19/20 06:25 [place] Rings Not Reportable 11/19/20 06:25 [place] Cells Not Reportable 11/19/20 06:25 Bite Cells Not Reportable 11/19/20 06:25 Crenated Cell Not Reportable 11/19/20 06:25 Elliptocytes Not Reportable 11/19/20 06:25 Acanthocytes (Spur) Not Reportable 11/19/20 06:25 Rouleaux Not Reportable 11/19/20 06:25 Hemoglobin C Crystals Not Reportable 11/19/20 06:25 Schistocytes Not Reportable 11/19/20 06:25 Malaria parasites Not Reportable 11/19/20 06:25 Jas Bodies Not Reportable 11/19/20 06:25 Hem Pathologist Commnt No 11/19/20 06:25 PT 15.0 Sec. (12.2-14.9) H 11/16/20 12:29 INR 1.13 (0.87-1.13) 11/16/20 12:29 APTT 37.6 Sec. (24.2-36.6) H 11/16/20 12:29 Sodium 138 mmol/L (137-145) 11/20/20 05:36 Potassium 4.8 mmol/L (3.6-5.0) D 11/20/20 05:36 Chloride 95.2 mmol/L (98-107) L 11/20/20 05:36 Carbon Dioxide 25 mmol/L (22-30) 11/20/20 05:36 Anion Gap 23 mmol/L 11/20/20 05:36 BUN 40 mg/dL (9-20) H 11/20/20 05:36 Creatinine 12.8 mg/dL (0.8-1.3) H 11/20/20 05:36 Estimated GFR 6 ml/min 11/20/20 05:36 BUN/Creatinine Ratio 3 % 11/20/20 05:36 Glucose 97 mg/dL (75-100) 11/20/20 05:36 POC Glucose 100 mg/dL (70-105) 11/18/20 21:31 Calcium 10.3 mg/dL (8.4-10.2) H 11/20/20 05:36 Phosphorus 8.50 mg/dL (2.5-4.5) H 11/16/20 12:29 Magnesium 2.30 mg/dL (1.7-2.3) 11/16/20 12:29 Total Bilirubin 0.30 mg/dL (0.1-1.2) 11/17/20 05:40 Direct Bilirubin < 0.2 mg/dL (0-0.2) 11/16/20 12:29 Indirect Bilirubin 0.2 mg/dL 11/16/20 12:29 AST 13 units/L (5-40) 11/17/20 05:40 ALT 6 units/L (7-56) L 11/17/20 05:40 Alkaline Phosphatase 283 units/L (35-129) H 11/17/20 05:40 Total Protein 7.4 g/dL (6.3-8.2) 11/17/20 05:40 Albumin 3.8 g/dL (3.9-5) L 11/17/20 05:40 Albumin/Globulin Ratio 1.1 % 11/17/20 05:40 Lipase 88 units/L (13-60) H 11/16/20 12:29 Walker/IV: Voiding Method Toilet Active Medications - Current Medications Current Medications: Generic Name Dose Route Start Last Admin Trade Name Freq PRN Reason Stop Dose Admin Acetaminophen 650 mg 11/16/20 21:16 Acetaminophen 325 Mg Tab PO Q4H PRN Pain MILD(1-3)/Fever >100.5/RUANO Carvedilol 25 mg 11/16/20 22:00 11/20/20 09:13 Carvedilol 25 Mg Tab PO 25 mg BID KRISTINE Administration Hydralazine HCl 50 mg 11/17/20 08:00 11/20/20 09:13 Hydralazine 25 Mg Tab PO 50 mg TID KRISTINE Administration Hydralazine HCl 10 mg 11/17/20 01:06 11/20/20 05:27 Hydralazine 20 Mg/1 Ml Inj IV 10 mg Q3H PRN Administration Blood Pressure Hydromorphone HCl 0.5 mg 11/16/20 21:16 11/20/20 03:02 Hydromorphone 1 Mg/1 Ml Inj IV 0.5 mg Q3H PRN Administration Pain , Severe (7-10) Sodium Chloride 100 mls @ 999 mls/hr 11/17/20 07:14 Nacl 0.9% IV LAMINE PRN Hypotension Lorazepam 1 mg 11/16/20 21:21 11/20/20 05:28 Lorazepam 2 Mg/Ml Vial IV 1 mg Q4H PRN Administration Anxiety Metoclopramide HCl 2.5 mg 11/16/20 21:23 11/19/20 02:51 Metoclopramide 10 Mg/2 Ml Inj IV 2.5 mg Q6H PRN Administration Nausea And Vomiting Morphine Sulfate 2 mg 11/16/20 21:16 11/20/20 09:30 Morphine 2 Mg/1 Ml Inj IV 2 mg Q4H PRN Administration Pain, Moderate (4-6) Nifedipine 30 mg 11/16/20 22:00 11/20/20 09:13 Nifedipine Xl 30 Mg Tab PO 30 mg BID KRISTINE Administration Ondansetron HCl 4 mg 11/16/20 21:16 11/19/20 06:34 Ondansetron 4 Mg/2 Ml Inj IV 4 mg Q8H PRN Administration Nausea And Vomiting Pantoprazole Sodium 40 mg 11/16/20 22:00 11/20/20 09:14 Pantoprazole 40 Mg Inj IV 40 mg BID KRISTINE Administration Sodium Chloride 10 ml 11/16/20 22:00 11/20/20 09:15 Sodium Chloride 0.9% 10 Ml Flush Syringe IV 10 ml BID KRISTINE Administration Sodium Chloride 10 ml 11/16/20 21:16 Sodium Chloride 0.9% 10 Ml Flush Syringe IV PRN PRN LINE FLUSH
[2020-11-20] MEDS ORDERED: LIDOCAINE MPF (2%) 20 MG/1 ML VIAL 5 ML ONE (13:14)
--- NOTE | 2020-11-20 13:14 | Anesthesia Day of Surgery ---
Anesthesia Day of Surgery - Day of Surgery Patient Examined: Yes Patient H&P Reviewed: Yes Patient is NPO: Yes
[2020-11-20] MEDS ORDERED: propofoL 200 MG/20 ML VIAL IV ONE ×2 (13:15→14:26)
--- NOTE | 2020-11-20 14:39 | Post Operative Note ---
Pre-op diagnosis: anemia Post-op diagnosis: same Findings: GI: hiatal hernia - mild antral gastritis (bx's) - mild duodenitis - negative other Procedure: EGD w/ bx Anesthesia: MAC Surgeon: ART BURGOS Estimated blood loss: none Pathology: list Specimen disposition: to lab Condition: stable Disposition: floor
--- NOTE | 2020-11-20 15:04 | Operative Report ---
DATE OF SURGERY: 11/20/2020 PROCEDURE: EGD with cold biopsy. INDICATIONS: 1. Anemia. 2. Gastrointestinal bleed. MEDICATIONS: Propofol per [employer] LO[employer]ER. COMPLICATIONS: None. DESCRIPTION OF PROCEDURE: The patient was brought to the procedure suite. The patient had the procedure discussed with him at length. All risks, complications, and benefits discussed after which the patient signed for the procedure to be performed. The patient was placed in left lateral decubitus position. Mouth block placed in the patient's oral cavity. After adequate sedation medication as above, endoscope placed in the mouth and brought to level of second portion of duodenum. Retroflexion view performed. The patient's vital signs remained stable throughout the procedure. FINDINGS: There was a small hiatal hernia at GE junction 38 cm from the gums. The esophagus otherwise appeared to be normal. There is mild to moderate antral gastritis noted. Biopsies were taken and sent to pathology. The stomach otherwise appeared to be normal. There is mild bulbar duodenitis without bleeding stigmata. The duodenum otherwise appeared to be normal. Retroflexion view performed in the stomach showed no other pathology other than noted above. The patient tolerated the procedure well. No complication during the procedure. IMPRESSION: 1. Hiatal hernia. 2. Mild to moderate gastritis, biopsies performed. 3. Mild duodenitis. 4. Otherwise, normal EGD. RECOMMENDATIONS: 1. Follow up biopsy results. 2. Advance diet. Follow H and H, transfuse as needed. 3. Okay to discharge from GI standpoint, we will sign off, call if needed. TID: [id number] RECEIPT: [id number] KELLEY/YOGESH/NATHALY
--- NOTE | 2020-11-20 15:10 | Post Anesthesia Evaluation ---
- Post Anesthesia Evaluation Patient Participated: Yes Airway Patent: Yes Stable Respiratory Function: Yes Nausea/Vomiting: No Temp > 96.8F: Yes Pain Manageable: Yes Adequeate Hydration: Yes Anesthesia Complications: No
--- NOTE | 2020-11-20 15:29 | Progress Note ---
Assessment and Plan - Patient Problems (1) Hyperkalemia Current Visit: Yes Status: Chronic Plan to address problem: We will manage with hemodialysis. Please ensure that patient is on a low potassium diet. Potassium levels improvement this am. (2) Hypertensive chronic kidney disease with stage 5 chronic kidney disease or end stage renal disease Current Visit: Yes Status: Chronic Plan to address problem: Monitor blood pressure on the current regimen. We will also further optimize volume status with hemodialysis and appropriate ultrafiltration during treatments. Counseled patient on the importance of compliance with his dialysis treatments and maintaining a low-sodium diet. (3) GI bleed Current Visit: Yes Status: Acute Plan to address problem: Pending further evaluation by GI and possible EGD during this admission s/p EGD with findings of mild gastritis. Recommendations per GI reviewed. (4) Volume overload Current Visit: Yes Status: Acute Plan to address problem: Volume optimization with hemodialysis and ultrafiltration during treatments. (5) ESRD (end stage renal disease) on dialysis Current Visit: Yes Status: Chronic Plan to address problem: Placed on an inpatient Tuesday/Tuesday/Tuesday hemodialysis schedule from renal standpoint he is stable for DC and needs to follow up at his outpatient dialysis clinic. Subjective Date of service: 11/20/20 Interval history: Had HD yesterday, and tolerated treatment well. S/P EGD, with findings reviewed. Objective - Vital Signs Vital signs: Vital Signs - 12hr 11/20/20 11/20/20 11/20/20 04:36 05:27 09:11 Temperature 98.2 F Pulse Rate 111 H 56 L Respiratory 20 18 Rate Blood Pressure 163/109 163/109 Blood Pressure 155/101 [Left] O2 Sat by Pulse 94 96 Oximetry 11/20/20 11/20/20 11:05 13:06 Temperature 98.6 F 98.6 F Pulse Rate 104 H 94 H Respiratory 20 15 Rate Blood Pressure 171/114 154/106 Blood Pressure [Left] O2 Sat by Pulse 96 96 Oximetry - General Appearance General appearance: well-developed, appears stated age EENT: ATNC Neck: no JVD Respiratory: Present: Clear to Ascultation Cardiology: regular Gastrointestinal: normal Integumentary: warm and dry Neurologic: no focal deficit Musculoskeletal: deferred Psychiatric: cooperative - Lab 11/19/20 06:25 11/20/20 05:36 Most recent lab results Calcium 10.3 mg/dL (8.4-10.2) H 11/20/20 05:36 Phosphorus 8.50 mg/dL (2.5-4.5) H 11/16/20 12:29 Magnesium 2.30 mg/dL (1.7-2.3) 11/16/20 12:29 - Allied health notes Allied health notes reviewed: nursing Medications & Allergies - Medications Allergies/Adverse Reactions: Allergies No Known Allergies Allergy (Verified 11/11/20 14:47) Home Medications: Home Medications Medication Instructions Recorded Confirmed Last Taken Type NIFEdipine XL [Procardia Xl] 60 mg PO BID #60 tablet 11/19/20 Unknown Rx Pantoprazole [Protonix] 40 mg PO BID #60 tablet 11/19/20 Unknown Rx Warfarin [Coumadin] 1 tab PO QDAY 11/19/20 11/19/20 Unknown History Warfarin [Coumadin] 2 tab PO QDAY 11/19/20 11/19/20 Unknown History carvediloL [Coreg] 25 mg PO BID #60 11/19/20 Unknown Rx cloNIDine [Catapres] 0.2 mg PO BID 11/19/20 11/19/20 Unknown History hydrALAZINE [Apresoline TAB] 100 mg PO TID #90 tablet 11/19/20 Unknown Rx Active Medications: Generic Name Dose Route Start Last Admin Trade Name Migueq PRN Reason Stop Dose Admin Acetaminophen 650 mg 11/16/20 21:16 Acetaminophen 325 Mg Tab PO Q4H PRN Pain MILD(1-3)/Fever >100.5/RUANO Carvedilol 25 mg 11/16/20 22:00 11/20/20 09:13 Carvedilol 25 Mg Tab PO 25 mg BID KRISTINE Administration Hydralazine HCl 50 mg 11/17/20 08:00 11/20/20 09:13 Hydralazine 25 Mg Tab PO 50 mg TID KRISTINE Administration Hydralazine HCl 10 mg 11/17/20 01:06 11/20/20 05:27 Hydralazine 20 Mg/1 Ml Inj IV 10 mg Q3H PRN Administration Blood Pressure Hydromorphone HCl 0.5 mg 11/16/20 21:16 11/20/20 03:02 Hydromorphone 1 Mg/1 Ml Inj IV 0.5 mg Q3H PRN Administration Pain , Severe (7-10) Sodium Chloride 100 mls @ 999 mls/hr 11/17/20 07:14 Nacl 0.9% IV LAMINE PRN Hypotension Lorazepam 1 mg 11/16/20 21:21 11/20/20 05:28 Lorazepam 2 Mg/Ml Vial IV 1 mg Q4H PRN Administration Anxiety Metoclopramide HCl 2.5 mg 11/16/20 21:23 11/19/20 02:51 Metoclopramide 10 Mg/2 Ml Inj IV 2.5 mg Q6H PRN Administration Nausea And Vomiting Morphine Sulfate 2 mg 11/16/20 21:16 11/20/20 09:30 Morphine 2 Mg/1 Ml Inj IV 2 mg Q4H PRN Administration Pain, Moderate (4-6) Nifedipine 30 mg 11/16/20 22:00 11/20/20 09:13 Nifedipine Xl 30 Mg Tab PO 30 mg BID KRISTINE Administration Ondansetron HCl 4 mg 11/16/20 21:16 11/19/20 06:34 Ondansetron 4 Mg/2 Ml Inj IV 4 mg Q8H PRN Administration Nausea And Vomiting Pantoprazole Sodium 40 mg 11/16/20 22:00 11/20/20 09:14 Pantoprazole 40 Mg Inj IV 40 mg BID KRISTINE Administration Sodium Chloride 10 ml 11/16/20 22:00 11/20/20 09:15 Sodium Chloride 0.9% 10 Ml Flush Syringe IV 10 ml BID KRISTINE Administration Sodium Chloride 10 ml 11/16/20 21:16 Sodium Chloride 0.9% 10 Ml Flush Syringe IV PRN PRN LINE FLUSH
[2020-11-20 19:12] VITALS: BP 157/103
== END 2020-11-20 16:50 | disposition home or self-care (01) | DRG 377 ==
LOC: ED 10:54 → 3A 14:44 → OBSVTOIN 11-17 09:16
PROVIDERS: ADMIT Internal Medicine; ATTEND Hospitalist
PROC: 5A1D70Z Performance of Urinary Filtration, Intermittent, Less than 6 Hours Per Day (ICD-10-PCS; 2020-11-17)
PROC: 5A1D70Z Performance of Urinary Filtration, Intermittent, Less than 6 Hours Per Day (ICD-10-PCS; principal; 2020-11-19)
PROC: 0DB68ZX Excision of Stomach, Via Natural or Artificial Opening Endoscopic, Diagnostic (ICD-10-PCS; 2020-11-20)
DX: K29.71 Gastritis, unspecified, with bleeding (principal); N18.6 End stage renal disease; E87.5 Hyperkalemia; K29.81 Duodenitis with bleeding; I16.0 Hypertensive urgency; E87.70 Fluid overload, unspecified; D50.0 Iron deficiency anemia secondary to blood loss (chronic); I12.0 Hypertensive chronic kidney disease with stage 5 chronic kidney disease or end stage renal disease; E83.39 Other disorders of phosphorus metabolism; E83.52 Hypercalcemia; K44.9 Diaphragmatic hernia without obstruction or gangrene; Z86.711 Personal history of pulmonary embolism; Z20.822 Contact with and (suspected) exposure to COVID-19
CPT/HCPCS: 36415; 71045; 80048; 80053; 80076; 82962; 83690; 83735; 84100; 85007; 85025; 85027; 85610; 85730; 88305; 88342; 93005; G0378; C9113; J0360; J0610; J0696; J1170; J1200; J1815; J2060; J2270; J2405; J2704; J2765; J7030

== ENCOUNTER 2021-10-28 03:03 | Inpatient (IN) | payer MEDICAID ==
[2021-10-28 12:10] LABS: Albumin 3.5 g/dL (3.9-5); Calcium 8.1 mg/dL (8.4-10.2)
[2021-10-28 12:17] LABS: Eosinophils % (Auto) 0.2 % (0.0-4.3); Monocytes # (Auto) 0.6 K/mm3 (0.0-0.8)
[2021-10-28 12:47] LABS: Basophils % (Auto) 0.2 % (0.0-1.8); Hematocrit 26.2 % (35.5-45.6); Hemoglobin 8.2 gm/dl (11.8-15.2); Lymphocytes % (Auto) 6.3 % (13.4-35.0); Mean Corpuscular HGB Conc 31 % (32-34); Mean Corpuscular Volume 90 fl (84-94); Monocytes % (Auto) 5.7 % (0.0-7.3); Platelet Count 345 K/mm3 (140-440); Red Blood Count 2.92 M/mm3 (3.65-5.03); Red Cell Distribution Width 20.5 % (13.2-15.2)
[2021-10-28 12:48] LABS: Lymphocytes # (Auto) 0.7 K/mm3 (1.2-5.4)
--- NOTE | 2021-10-28 13:53 | Vascular Lab Report ---
DUPLEX DOPPLER LOWER EXTREMITY VEINS, BILATERAL INDICATION: LE edema pain and and Hx SVC occlusion. TECHNIQUE: Duplex doppler imaging was performed through the veins of both lower extremities using ve nous compression and other maneuvers. COMPARISON: No relevant prior imaging study available. FINDINGS: Right Common femoral vein: Negative. Right Superficial femoral vein: Negative. Right Popliteal vein: Negative. Right Calf veins: Negative. Left Common femoral vein: Negative. Left Superficial femoral vein: Negative. Left Popliteal vein: Negative. Left Calf veins: Negative. Additional findings: None. IMPRESSION: No sonographic evidence for DVT in either lower extremity. Signer Name: Bj Chaney Jr, MD Signed: 10/28/2021 1:49 PM Workstation Name: [id number]
--- NOTE | 2021-10-28 14:24 | Emergency Department Report ---
ED General Adult HPI - General Chief complaint: Extremity Injury, Lower Stated complaint: LEG PAIN Time Seen by Provider: 10/28/21 10:16 Source: EMS Mode of arrival: Wheelchair Limitations: No Limitations - History of Present Illness Initial comments: Patient is a 31-year-old end-stage renal disease patient who came in via EMS after he states he thought he did too much heroin. This was at 5 PM yesterday and now he states he is just "drained." He has been complaining of pain in his bilateral lower extremities. He has a history of this SVC occlusion. He is due for dialysis today. Patient denies any chest pain shortness of breath palpitations. No nausea vomiting or diarrhea. He does state that he has dialysis today at 3. Severity scale (0 -10): 8 - Related Data Previous Rx's Medication Instructions Recorded Last Taken Type Hydralazine HCl 100 mg PO TID 30 Days #90 tab 05/08/21 Unknown Rx NIFEdipine XL [Procardia Xl] 60 mg PO BID 30 Days #120 tablet 05/08/21 Unknown Rx Pantoprazole [Protonix] 40 mg PO QDAY 30 Days #30 tablet 05/08/21 Unknown Rx carvediloL [Coreg] 25 mg PO BID 30 Days #60 tab 05/08/21 Unknown Rx Allergies Allergy/AdvReac Type Severity Reaction Status Date / Time No Known Allergies Allergy Verified 05/07/21 10:21 ED Review of Systems ROS: Stated complaint: LEG PAIN Other details as noted in HPI Comment: All other systems reviewed and negative Constitutional: denies: chills, fever Eyes: denies: eye pain, eye discharge, vision change ENT: denies: ear pain, throat pain Respiratory: denies: cough, shortness of breath, wheezing Cardiovascular: denies: chest pain, palpitations Endocrine: no symptoms reported Gastrointestinal: denies: abdominal pain, nausea, diarrhea Genitourinary: denies: urgency, dysuria Musculoskeletal: as per HPI Skin: denies: rash, lesions Neurological: denies: headache, weakness, paresthesias Psychiatric: denies: anxiety, depression Hematological/Lymphatic: denies: easy bleeding, easy bruising ED Past Medical Hx - Past Medical History Previous Medical History?: Yes Hx Hypertension: Yes Hx Deep Vein Thrombosis: Yes (SVC occlusion) Hx Pulmonary Embolism: Yes Hx Renal Disease: Yes (Dialysys M, W, F) - Surgical History Past Surgical History?: No Additional Surgical History: AV fistula - Social History Smoking Status: Unknown if ever smoked Substance Use Type: Heroin (Last heroin use 5 PM on 10/27/2021) - Medications Home Medications: Home Medications Medication Instructions Recorded Confirmed Last Taken Type Hydralazine HCl 100 mg PO TID 30 Days #90 tab 05/08/21 Unknown Rx NIFEdipine XL [Procardia Xl] 60 mg PO BID 30 Days #120 tablet 05/08/21 Unknown Rx Pantoprazole [Protonix] 40 mg PO QDAY 30 Days #30 tablet 05/08/21 Unknown Rx carvediloL [Coreg] 25 mg PO BID 30 Days #60 tab 05/08/21 Unknown Rx ED Physical Exam - General Limitations: No Limitations General appearance: alert, in no apparent distress - Head Head exam: Present: atraumatic, normocephalic - Eye Eye exam: Present: normal appearance - ENT ENT exam: Present: mucous membranes moist - Neck Neck exam: Present: normal inspection - Respiratory Respiratory exam: Present: normal lung sounds bilaterally. Absent: respiratory distress - Cardiovascular Cardiovascular Exam: Present: regular rate, normal rhythm. Absent: systolic murmur, diastolic murmur, rubs, gallop - GI/Abdominal GI/Abdominal exam: Present: soft, normal bowel sounds - Rectal Rectal exam: Present: deferred - Extremities Exam Extremities exam: Present: normal inspection, normal capillary refill, calf tenderness. Absent: pedal edema - Back Exam Back exam: Present: normal inspection - Neurological Exam Neurological exam: Present: alert, oriented X3, other (Upon presentation at my initial eval patient was very sleepy, but he perked up and was quite talkative denying any complaints) - Psychiatric Psychiatric exam: Present: normal affect, normal mood - Skin Skin exam: Present: warm, dry, intact, normal color. Absent: rash ED Course Vital Signs 10/28/21 10/28/21 10/28/21 03:15 10:41 16:20 Temperature 97.7 F 98.4 F 98.2 F Pulse Rate 102 H 92 H 98 H Respiratory 18 16 20 Rate Blood Pressure 112/74 109/72 Blood Pressure 101/76 [Left] O2 Sat by Pulse 99 97 Oximetry O2 Sat by Pulse 100 Oximetry [ Posterior Bilateral] 10/28/21 10/28/21 10/28/21 16:45 17:00 17:15 Temperature Pulse Rate 98 H 94 H 100 H Respiratory Rate Blood Pressure 109/78 126/77 116/68 Blood Pressure [Left] O2 Sat by Pulse Oximetry O2 Sat by Pulse Oximetry [ Posterior Bilateral] 10/28/21 10/28/21 10/28/21 17:30 17:45 18:00 Temperature Pulse Rate 96 H 100 H 99 H Respiratory Rate Blood Pressure 122/69 114/69 117/69 Blood Pressure [Left] O2 Sat by Pulse Oximetry O2 Sat by Pulse Oximetry [ Posterior Bilateral] 10/28/21 10/28/21 10/28/21 18:15 18:30 18:45 Temperature Pulse Rate 100 H 107 H 104 H Respiratory Rate Blood Pressure 125/84 122/78 108/84 Blood Pressure [Left] O2 Sat by Pulse Oximetry O2 Sat by Pulse Oximetry [ Posterior Bilateral] 10/28/21 10/28/21 10/28/21 19:00 19:15 19:30 Temperature Pulse Rate 107 H 112 H 107 H Respiratory Rate Blood Pressure 116/83 135/81 137/68 Blood Pressure [Left] O2 Sat by Pulse Oximetry O2 Sat by Pulse Oximetry [ Posterior Bilateral] 10/28/21 20:39 Temperature 98.8 F Pulse Rate 104 H Respiratory 20 Rate Blood Pressure 119/84 Blood Pressure [Left] O2 Sat by Pulse Oximetry O2 Sat by Pulse 100 Oximetry [ Posterior Bilateral] - Reevaluation(s) Reevaluation #1: 10/28/21 15:43 Multiple reevaluations reveal patient is oriented x3 and only complaint is that he is tired and his legs hurt. ED Medical Decision Making - Lab Data Result diagrams: 10/28/21 10:49 10/28/21 10:49 - Medical Decision Making Patient is a 31-year-old male with end-stage renal disease, history of SVC occlusion and PE presents today with leg pain. He is due for dialysis and his potassium was found to be 6.0. Given that it is late in the day and his potassium he will need to be admitted for dialysis. Case was discussed with early if my supervising physician here in the ED. Treatment of hyperkalemia initiated including insulin 5 units subcu and an amp of sodium bicarb and dextrose.. Consult placed to nephrology Dr. Sheldon Garcia. He agrees to follow and take patient to dialysis today and asked that we start calcium gluconate and Kayexalate. Consult placed to Dr. Osullivan who is on-call for hospitalist service and he will come down and see the patient as well. Critical care attestation.: If time is entered above; I have spent that time in minutes in the direct care of this critically ill patient, excluding procedure time. ED Disposition Clinical Impression: Hyperkalemia, End stage renal disease, End-stage renal disease needing dialysis, Lower extremity pain Disposition: ADMITTED INPATIENT Is pt being admited?: Yes Condition: Stable
[2021-10-28] MEDS ORDERED: INSULIN REGULAR, HUMAN 100 UNITS/1 ML IV ONE (14:39)
[2021-10-28] MEDS ORDERED: SODIUM BICARB 8.4% 50 MEQ/50 ML SYRINGE IV ONE (14:40)
[2021-10-28] MEDS ORDERED: DEXTROSE 50% IN WATER (25GM) 50 ML SYRINGE IV ONE (14:50)
--- NOTE | 2021-10-28 15:24 | XRay Report ---
CHEST 1 VIEW 10/28/2021 2:11 PM INDICATION / CLINICAL INFORMATION: hyperkalemia. COMPARISON: One view of the chest from 11/16/2020. FINDINGS: SUPPORT DEVICES: None. HEART / MEDIASTINUM: Stable cardiomegaly with similar positioning of an SVC stent. LUNGS / PLEURA: No significant pulmonary abnormality. No significant pleural effusion. No pneumothora x. ADDITIONAL FINDINGS: No significant additional findings. IMPRESSION: 1. No acute abnormality of the chest. No significant interval changes. Signer Name: Alexi Pope MD Signed: 10/28/2021 3:20 PM Workstation Name: [id number]
--- NOTE | 2021-10-28 15:42 | History and Physical Report ---
History of Present Illness Chief complaint: I feel drained History of present illness: 31 YO Male with ESRD on HD(T,R,Sa), HTN, Noncompliance, Nicotine Dependence, Cocaine Dependence, SVC Occlusion S/P Stent Placement, PE not taking therapeutic anticoagulation presents to ED for evaluation. Patient reports "I feel dr woodall". Patient states that he experienced fatigue, generalized weakness over the past 1 day after ingestion of cocaine. Patient also acknowledges missed dialysis sessions. EMS was notified and upon arrival the patient was found to be in distress and subsequent transported to [facility] for further care and evaluation of the aforementioned symptoms. The patient was seen and evaluated in the emergency department. All lab and imaging studies reviewed. Patient found to have end-stage renal disease in need of urgent dialysis. Patient also found to have hyperkalemia without EKG changes, metabolic acidosis, and anemia of chronic disease. Patient admitted to medical floor due to increased risk of worsening symptoms. Nephrology team consulted in ED for urgent dialysis. Patient denies fever, chills, chest pain, palpitation, productive cough, skin rash, recent contact, known exposure to COVID-19. Prior admission on 05/06/2021 reviewed. All medication listed at time of admission has been reconciled. Advanced care planning conducted in ED. Past History Past Medical History: ESRD, hypertension Past Surgical History: Other (Dialysis access) Social history: single, smoking Family history: hypertension Medications and Allergies Allergies Allergy/AdvReac Type Severity Reaction Status Date / Time No Known Allergies Allergy Verified 05/07/21 10:21 Home Medications Medication Instructions Recorded Confirmed Last Taken Type Hydralazine HCl 100 mg PO TID 30 Days #90 tab 05/08/21 Unknown Rx NIFEdipine XL [Procardia Xl] 60 mg PO BID 30 Days #120 tablet 05/08/21 Unknown Rx Pantoprazole [Protonix] 40 mg PO QDAY 30 Days #30 tablet 05/08/21 Unknown Rx carvediloL [Coreg] 25 mg PO BID 30 Days #60 tab 05/08/21 Unknown Rx Review of Systems Constitutional: weakness, malaise, no weight loss, no weight gain, no fever, no chills Ears, nose, mouth and throat: no ear pain, no ear discharge, no tinnitis, no decreased hearing, no nose pain Cardiovascular: no chest pain, no orthopnea, no edema Respiratory: no cough, no cough with sputum Gastrointestinal: no abdominal pain, no nausea, no vomiting, no diarrhea, no constipation Genitourinary Male: no hematuria, no flank pain, no discharge, no urinary frequency, no urinary hesitancy Rectal: no pain, no incontinence, no bleeding Musculoskeletal: no neck stiffness, no neck pain, no shooting arm pain, no arm numbness/tingling, no low back pain Integumentary: no rash, no sores, no wounds, no jaundice, no boils Neurological: no head injury, no paralysis, no weakness, no parathesias, no numbness Psychiatric: no anxiety, no memory loss, no change in appetite, no change in libido, no suicidal ideation Endocrine: no cold intolerance, no heat intolerance, no excessive thirst, no polydipsia, no excessive sweating Hematologic/Lymphatic: no easy bruising, no easy bleeding, no lymphedema Allergic/Immunologic: no allergic rhinitis, no persistent infections Exam - Constitutional Vitals: Temp Pulse Resp BP Pulse Ox 98.4 F 92 H 16 101/76 97 10/28/21 10:41 10/28/21 10:41 10/28/21 10:41 10/28/21 10:41 10/28/21 10:41 General appearance: Present: mild distress - EENT Eyes: Present: PERRL ENT: hearing intact, clear oral mucosa - Neck Neck: Present: supple, normal ROM - Respiratory Respiratory effort: normal Respiratory: bilateral: diminished - Cardiovascular Heart Sounds: Present: S1 & S2. Absent: rub, click - Extremities Extremities: pulses symmetrical, No edema Peripheral Pulses: within normal limits - Abdominal General gastrointestinal: Present: soft, non-tender, non-distended, normal bowel sounds Male genitourinary: Present: normal - Integumentary Integumentary: Present: clear, warm, dry - Musculoskeletal Musculoskeletal: gait normal, strength equal bilaterally - Psychiatric Psychiatric: appropriate mood/affect, intact judgment & insight - Neurologic Neurologic: CNII-XII intact, moves all extremities Results - Labs CBC & Chem 7: 10/28/21 10:49 10/28/21 10:49 Labs: Abnormal lab results 10/28/21 10/28/21 10/28/21 Range/Units 10:49 10:49 10:49 WBC 11.3 H (4.5-11.0) K/mm3 RBC 2.92 L (3.65-5.03) M/mm3 Hgb 8.2 L (11.8-15.2) gm/dl Hct 26.2 L (35.5-45.6) % MCHC 31 L (32-34) % RDW 20.5 H (13.2-15.2) % Lymph % (Auto) 6.3 L (13.4-35.0) % Lymph # (Auto) 0.7 L (1.2-5.4) K/mm3 Seg Neutrophils % 87.4 H (40.0-70.0) % Seg Neutrophils # 9.9 H (1.8-7.7) K/mm3 D-Dimer 1738.75 H (0-234) ng/mlDDU Sodium 136 L (137-145) mmol/L Potassium 6.0 H (3.6-5.0) mmol/L Chloride 94.7 L (98-107) mmol/L Carbon Dioxide 21 L (22-30) mmol/L BUN 60 H (9-20) mg/dL Creatinine 14.9 H (0.8-1.3) mg/dL Glucose 101 H (75-100) mg/dL Calcium 8.1 L (8.4-10.2) mg/dL Phosphorus 6.80 H (2.5-4.5) mg/dL ALT 6 L (7-56) units/L Alkaline Phosphatase 383 H (35-129) units/L Albumin 3.5 L (3.9-5) g/dL Assessment and Plan - Patient Problems (1) End stage renal disease Current Visit: Yes Status: Acute Plan to address problem: Nephrology team consulted in ED for urgent dialysis, strict I's/O, monitor fluid balance, avoid nephrotoxic agents. Dialysis as per renal team. (2) Hyperkalemia Current Visit: Yes Status: Acute Plan to address problem: No EKG changes, supportive care, urgent dialysis. (3) Anemia Current Visit: No Status: Chronic Qualifiers: Anemia type: due to chronic kidney disease Plan to address problem: Anemia of chronic disease, supportive care, Epogen as per renal team. (4) Nicotine dependence Current Visit: No Status: Acute Qualifiers: Nicotine product type: cigarettes Substance use status: in withdrawal Qualified Code(s): F17.213 - Nicotine dependence, cigarettes, with withdrawal Plan to address problem: Smoke cessation counseling, behavior change counseling, +15 minutes. Supportive care. (5) Metabolic acidosis Current Visit: Yes Status: Acute Plan to address problem: Supportive care, BMP, urgent dialysis, repeat BMP in AM. (6) Volume overload Current Visit: No Status: Acute Plan to address problem: Supportive care, urgent dialysis. Hold IV fluid resuscitation therapy at this time. (7) DVT prophylaxis Current Visit: No Status: Acute Plan to address problem: SCD bilateral extremities while in bed (8) Advance care planning Current Visit: No Status: Acute Plan to address problem: Disease education conducted, care plan discussed, diagnosis discussed, prognosis discussed, patient is full code. Patient acknowledges understanding and agreement with care plan, +30 minutes. (9) Preventative health care Current Visit: Yes Status: Acute Plan to address problem: Patient counseled regarding cocaine cessation, medication compliance, outpatient follow-up compliant with outpatient dialysis, outpatient follow-up with primary care physician for all age and risk factor appropriate screening test. +30 minutes.
[2021-10-28] MEDS ORDERED: SODIUM POLYSTYRENE 15 GM/60 ML ORAL LIQD PO ONE (15:47)
[2021-10-28] MEDS ORDERED: CALCIUM GLUCONATE 1,000 MG in SODIUM CHLORIDE 0.9% 100 ML IV ONE (15:51)
[2021-10-28] MEDS ORDERED: ALBUTEROL 2.5 MG/3 ML NEBU IH PRN (16:00)
[2021-10-28] MEDS ORDERED: ACETAMINOPHEN 325 MG TAB PO PRN (16:00)
[2021-10-28] MEDS ORDERED: oxyCODONE /ACETAMINOPHEN 5-325MG TAB PO PRN (16:00)
[2021-10-28] MEDS ORDERED: HYDROmorphone 0.5 MG/0.5 ML INJ IV PRN (16:00)
[2021-10-28] MEDS ORDERED: ONDANSETRON 4 MG/2 ML INJ IV PRN (16:00)
[2021-10-28] MEDS ORDERED: CALC GLUCONATE 1GM/NS 100 ML 1 GM/100 ML BAG IV ONE (17:00)
[2021-10-28 17:33] LABS: Hepatitis B Surface Antigen Non-Reactive (Negative); Hepatitis C Virus Antibody Non-Reactive (NonReactive)
[2021-10-29] MEDS ORDERED: ZOLPIDEM 5 MG TAB PO SCH (00:47)
[2021-10-29] MEDS ORDERED: ZOLPIDEM 5 MG TAB PO ONE (01:54)
[2021-10-29] MEDS ORDERED: oxyCODONE /ACETAMINOPHEN 5-325MG TAB PO ONE (04:56)
[2021-10-29 05:16] LABS: Calcium 9.2 mg/dL (8.4-10.2)
[2021-10-29] MEDS ORDERED: HEPARIN PRN BOLUS(standard intensity drip) IV (06:06)
[2021-10-29 06:09] LABS: Chol/HDL Ratio 2.9 %
[2021-10-29] MEDS ORDERED: MORPHINE 2 MG/1 ML INJ IV PRN (09:30)
[2021-10-29] MEDS ORDERED: ASPIRIN 325 MG TAB PO SCH (10:00)
[2021-10-29] MEDS ORDERED: NICOTINE 14 MG/24 HR PATCH TD SCH (10:00)
--- NOTE | 2021-10-29 11:47 | Electrocardiograph Report ---
[facility] Test Date: 2021-10-29 Test Time: 03:24:05 Pat Name: GIOVANNA STARKS Department: Room: A377 1 Gender: M Sustainability Coach: [id number] : 1990 Requested By: TIMOTHY PRITCHETT Order Number: [id number] Reading MD: Chavo Chacon Measurements Intervals Gregory Rate: 98 P: 48 PA: 154 QRS: 45 QRSD: 163 T: 215 QT: 416 QTc: 532 Interpretive Statements Sinus rhythm Left bundle branch block Compared to ECG 05/06/2021 16:20:21 Left bundle-branch block now present Myocardial infarct finding no longer present Left ventricular hypertrophy no longer present Electronically Signed On 10-29-2021 11:47:40 EDT by Chavo Chacon
--- NOTE | 2021-10-29 11:55 | Consultation ---
History of Present Illness - Reason for Consult Consult date: 10/29/21 end stage renal disease - History of Present Illness This is a 31 year old male who presented to the E.R yesterday for a chief complaint of feeling weak after ingesting cocaine. On evaluation, patient was found to be Hyperkalemic with potassium level of 6.0. Patient has ESRD and has missed HD. STAT hemodialysis was ordered yesterday. Patient also has history of Hypertension, Cocaine Abuse, SVC occlusion, PE and Non-compliance with overall medical care. Patient seen in HD unit. Has right AVF. We are being consulted for management of this patient's ESRD. Past History Past Medical History: ESRD, hypertension Past Surgical History: Other (Dialysis access) Social history: single, smoking Family history: hypertension Medications and Allergies Allergies Allergy/AdvReac Type Severity Reaction Status Date / Time No Known Allergies Allergy Verified 05/07/21 10:21 Home Medications Medication Instructions Recorded Confirmed Last Taken Type Hydralazine HCl 100 mg PO TID 30 Days #90 tab 05/08/21 Unknown Rx NIFEdipine XL [Procardia Xl] 60 mg PO BID 30 Days #120 tablet 05/08/21 Unknown Rx Pantoprazole [Protonix] 40 mg PO QDAY 30 Days #30 tablet 05/08/21 Unknown Rx carvediloL [Coreg] 25 mg PO BID 30 Days #60 tab 05/08/21 Unknown Rx Active Meds: Active Medications Acetaminophen (Acetaminophen 325 Mg Tab) 650 mg PO Q4H PRN PRN Reason: Pain MILD(1-3)/Fever >100.5/RUANO Albuterol (Albuterol 2.5 Mg/3 Ml Nebu) 2.5 mg IH Q4HRT PRN PRN Reason: Shortness Of Breath Aspirin (Aspirin 325 Mg Tab) 325 mg PO QDAY KRISTINE Last Admin: 10/29/21 10:10 Dose: 325 mg Atorvastatin Calcium (Atorvastatin 40 Mg Tab) 40 mg PO QHS KRISTINE Hydromorphone HCl (Hydromorphone 0.5 Mg/0.5 Ml Inj) 0.5 mg IV Q23H PRN PRN Reason: Pain , Severe (7-10) Last Admin: 10/28/21 20:51 Dose: 0.5 mg Morphine Sulfate (Morphine 2 Mg/1 Ml Inj) 2 mg IV Q6H PRN PRN Reason: Pain, Moderate (4-6) Last Admin: 10/29/21 10:11 Dose: 2 mg Nicotine (Nicotine 14 Mg/24 Hr Patch) 14 mg TD QDAY [facility] Last Admin: 10/29/21 10:10 Dose: 14 mg Ondansetron HCl (Ondansetron 4 Mg/2 Ml Inj) 4 mg IV Q8H PRN PRN Reason: Nausea And Vomiting Oxycodone/Acetaminophen (Oxycodone /Acetaminophen 5-325mg Tab) 1 tab PO Q16H PRN PRN Reason: Pain, Moderate (4-6) Last Admin: 10/29/21 00:38 Dose: 1 tab Sodium Chloride (Sodium Chloride 0.9% 10 Ml Flush Syringe) 10 ml IV BID [facility] Last Admin: 10/29/21 10:10 Dose: 10 ml Sodium Chloride (Sodium Chloride 0.9% 10 Ml Flush Syringe) 10 ml IV PRN PRN PRN Reason: LINE FLUSH Review of Systems Constitutional: fatigue, weakness, no weight loss, no weight gain, no fever, no chills Ears, nose, mouth and throat: no ear discharge, no tinnitis, no decreased hearing, no nose pain, no nasal congestion Cardiovascular: no chest pain, no orthopnea, no palpitations, no rapid/irregular heart beat, no edema Respiratory: no cough, no cough with sputum, no excessive sputum, no hemoptysis, no shortness of breath, no dyspnea on exertion Gastrointestinal: no abdominal pain, no nausea, no vomiting, no diarrhea, no constipation, no change in bowel habits Rectal: no pain, no incontinence, no bleeding, no itching Musculoskeletal: muscle weakness, no neck stiffness, no neck pain, no shooting arm pain, no arm numbness/tingling, no low back pain, no shooting leg pain Integumentary: no rash, no pruritis, no redness, no sores, no wounds Neurological: weakness, no head injury, no transient paralysis, no paralysis, no parathesias Psychiatric: anxiety, other (illiegal drug use) Endocrine: no cold intolerance, no heat intolerance, no polyphagia, no excessive thirst Exam - Vital Signs Vital signs: Vital Signs Temp Pulse Resp BP Pulse Ox 97.7 F 102 H 18 112/74 99 10/28/21 03:15 10/28/21 03:15 10/28/21 03:15 10/28/21 03:15 10/28/21 03:15 - General Appearance General appearance: well-developed, appears stated age, fatigue EENT: ATNC Neck: Present: neck supple Respiratory: Decreased Breath Sounds Heart: S1S2 Gastrointestinal: Present: normoactive bowel sounds Integumentary: warm and dry Neurologic: alert and oriented x3 Musculoskeletal: Present: other (Has functional right AVF) Results - Lab Results 10/28/21 10:49 10/29/21 04:17 Most recent lab results Calcium 9.2 mg/dL (8.4-10.2) 10/29/21 04:17 Phosphorus 6.80 mg/dL (2.5-4.5) H 10/28/21 10:49 Magnesium 2.20 mg/dL (1.7-2.3) 10/28/21 10:49 Assessment and Plan Assessment: ESRD on hemodialysis Hyperkalemia Anemia Cocaine use Hypertension Elevated Troponin levels Hyperphosphatemia Plan: Received STAT hemodialysis yesterday evening for Hyperkalemia Hemodialysis again today for UF and clearance, will place on T,T,S schedule Hyperphosphatemia- start Renvela 800 mg 2 tabs TID with meals Fluid restriction of 1 liter per day Low potassium diet Renally dose medications Obtain daily weights Monitor I/O's daily Assess dialysis needs daily Goes to [facility] outpatiently Plan of care reviewed by Dr. Nice
--- NOTE | 2021-10-29 12:28 | Consultation ---
History of Present Illness Consult date: 10/29/21 Consult reason: elevated troponin History of present illness: This patient is a 31-year-old man with chronic hypertension, heroin abuse and end-stage renal disease on hemodialysis. He reports that he receives his usual care at [facility]. He states that he has been worked up at [facility] in the past for a "valve problem", but unable to provide details of findings. Over the past 2 weeks, he admits to heavy use of heroin, and yesterday felt that he had overdosed. He describes multiple constitutional symptoms, including pain in his legs and persistent diarrhea. He decided to report to the hospital emergency room where he was evaluated and admitted. He denies chest pain or unusual shortness of breath but did report some palpitations. There is no lower extremity edema. He reports poor compliance with his dialysis regimen since eng aging in his heroin habit. In the emergency room, there were multiple laboratory abnormalities including a hematocrit of 26, potassium of 6.0, and creatinine of 14.9. In this milieu, the patient's troponin was 0.45. Cardiology consultation was requested for the elevated troponin measurement. Today the patient looks and feels better after restarting his dialysis regimen. I reviewed the ECG on presentation. There is a sinus rhythm with Kizxv-Ojbhzftwf-Kuyjo syndrome. The bypass tract that is evident on the current ECG appears concealed, his previous ECGs that are evident in the hospital records most recently May 2021, all show conduction via the AV node with no evident bypass tract. Chest x-ray shows cardiomegaly, but no interstitial edema or heart failure decompensation. There is a stent visible in the superior vena cava. It to be notable that the cardiomegaly is reported to be unchanged from his previous chest x-rays that were done in this hospital. Past History Past Medical History: ESRD, hypertension, other (Heroin abuse) Past Surgical History: Other (Dialysis access) Social history: single, smoking Family history: hypertension Medications and Allergies Allergies Allergy/AdvReac Type Severity Reaction Status Date / Time No Known Allergies Allergy Verified 05/07/21 10:21 Home Medications Medication Instructions Recorded Confirmed Last Taken Type Hydralazine HCl 100 mg PO TID 30 Days #90 tab 05/08/21 Unknown Rx NIFEdipine XL [Procardia Xl] 60 mg PO BID 30 Days #120 tablet 05/08/21 Unknown Rx Pantoprazole [Protonix] 40 mg PO QDAY 30 Days #30 tablet 05/08/21 Unknown Rx carvediloL [Coreg] 25 mg PO BID 30 Days #60 tab 05/08/21 Unknown Rx Active Meds: Active Medications Acetaminophen (Acetaminophen 325 Mg Tab) 650 mg PO Q4H PRN PRN Reason: Pain MILD(1-3)/Fever >100.5/RUANO Albuterol (Albuterol 2.5 Mg/3 Ml Nebu) 2.5 mg IH Q4HRT PRN PRN Reason: Shortness Of Breath Aspirin (Aspirin 325 Mg Tab) 325 mg PO QDAY [facility] Last Admin: 10/29/21 10:10 Dose: 325 mg Atorvastatin Calcium (Atorvastatin 40 Mg Tab) 40 mg PO QHS [facility] Hydromorphone HCl (Hydromorphone 0.5 Mg/0.5 Ml Inj) 0.5 mg IV Q23H PRN PRN Reason: Pain , Severe (7-10) Last Admin: 10/28/21 20:51 Dose: 0.5 mg Morphine Sulfate (Morphine 2 Mg/1 Ml Inj) 2 mg IV Q6H PRN PRN Reason: Pain, Moderate (4-6) Last Admin: 10/29/21 10:11 Dose: 2 mg Nicotine (Nicotine 14 Mg/24 Hr Patch) 14 mg TD QDAY [facility] Last Admin: 10/29/21 10:10 Dose: 14 mg Ondansetron HCl (Ondansetron 4 Mg/2 Ml Inj) 4 mg IV Q8H PRN PRN Reason: Nausea And Vomiting Oxycodone/Acetaminophen (Oxycodone /Acetaminophen 5-325mg Tab) 1 tab PO Q16H PRN PRN Reason: Pain, Moderate (4-6) Last Admin: 10/29/21 00:38 Dose: 1 tab Sodium Chloride (Sodium Chloride 0.9% 10 Ml Flush Syringe) 10 ml IV BID [facility] Last Admin: 10/29/21 10:10 Dose: 10 ml Sodium Chloride (Sodium Chloride 0.9% 10 Ml Flush Syringe) 10 ml IV PRN PRN PRN Reason: LINE FLUSH Review of Systems Cardiovascular: palpitations, rapid/irregular heart beat, shortness of breath, no chest pain, no orthopnea, no edema, no syncope, no lightheadedness Physical Examination Vital Signs Temp Pulse Resp BP Pulse Ox 97.7 F 102 H 18 112/74 99 10/28/21 03:15 10/28/21 03:15 10/28/21 03:15 10/28/21 03:15 10/28/21 03:15 General appearance: no acute distress HEENT: Positive: PERRL Neck: Positive: neck supple Cardiac: Positive: Reg Rate and Rhythm, Systolic Murmur Lungs: Positive: Decreased Breath Sounds Neuro: Positive: Grossly Intact Abdomen: Positive: Soft Male genitourinary: Positive: deferred Skin: Positive: Clear Extremities: Absent: edema Results 10/28/21 10:49 10/29/21 04:17 Lipids 10/29/21 Range/Units 04:17 Triglycerides 96 (2-149) mg/dL Cholesterol 119 (50-199) mg/dL HDL Cholesterol 41 (40-59) mg/dL Cholesterol/HDL Ratio 2.90 % CBC 10/28/21 Range/Units 10:49 WBC 11.3 H (4.5-11.0) K/mm3 RBC 2.92 L (3.65-5.03) M/mm3 Hgb 8.2 L (11.8-15.2) gm/dl Hct 26.2 L (35.5-45.6) % Plt Count 345 (140-440) K/mm3 Lymph # (Auto) 0.7 L (1.2-5.4) K/mm3 Comprehensive Metabolic Panel 10/28/21 10/29/21 Range/Units 10:49 04:17 Sodium 139 (137-145) mmol/L Potassium 4.7 D (3.6-5.0) mmol/L Chloride 93.0 L (98-107) mmol/L Carbon Dioxide 30 D (22-30) mmol/L BUN 32 H (9-20) mg/dL Creatinine 14.9 H 8.6 H (0.8-1.3) mg/dL Glucose 96 (75-100) mg/dL Calcium 9.2 (8.4-10.2) mg/dL EKG interpretations - Telemetry EKG Rhythm: Nnpb-Ocrbuntxd-Awlta (Sinus rhythm with Oipfn-Cnsiutftn-Jrkgd syndrome) Assessment and Plan 31-year-old man with end-stage renal disease on hemodialysis and heroin abuse presents for evaluation following several missed dialysis sessions and heroin consumption binge. The troponin level is likely nonspecific finding in the absence of specific cardiac complaints. More pertinent cardiac findings include the presence of a concealed bypass tract with current ECG consistent with Lyvrm-Aoaflhvfz-Bdcfp. In addition, there is cardiomegaly on the chest x-ray. Recommendation for echocardiogram for left ventricular function assessment, to tailor further medical therapy. The patient's Lindsay Parkinson White bypass tract will be recommended for outpatient follow-up and management by his primary anthropology professor and jinrikisha driver.
[2021-10-29] MEDS ORDERED: SEVELAMER CARBONATE 800 MG TAB PO SCH (16:30)
--- NOTE | 2021-10-29 16:52 | Progress Note ---
Assessment and Plan Assessment and plan: #Hyperkalemiaresolved #Metabolic acidosis/resolved Potassium 6.0--> 4.7 Secondary to necessary hemodialysis. Resolved after hemodialysis. #ESRD on hemodialysis #Volume overloadresolved -Access: Left upper extremity AV fistula -Outpatient schedule: Unknown -HD center: Unknown -Nephrology consulted; appreciate recs. -Renally dose medications and avoid nephrotoxic drugs. Renal diet. #NSTEMItype II Elevated troponins likely secondary to ESRD. #Zkczz-Biylyxouf-Rdacr Cardiology consulted; appreciate recs Patient should follow up with cardiology in outpatient setting to continue further work-up #Anemia of chronic disease Hemoglobin 8.2 Transfuse if hemoglobin <7 or patient becomes symptomatic. Continue to monitor. #Polysubstance dependence #Heroin withdrawal -Patient engages in the following substances: Heroin -Counseled patient about the importance of cessation of substance abuse. Offered resources to help with quitting. Patient expresses understanding. -Time: +15 mins #Tobacco dependence #Tobacco/Smoking cessation counseling - Counseled patient about the importance of smoking cessation and the possible sequelae as a result of continued tobacco consumption. The patient expresses understanding. Starting nicotine patch daily -Time: +15 mins #Advanced care planning -Disease education conducted, care plan discussed, diagnoses discussed, prognosis discussed, and patient acknowledges understanding with care plan -Time: +30 min Disposition Plan: Continue medical management Total Time Spent with Patient (Minutes): 45 minutes History Interval history: No acute events overnight. Hospitalist Physical - Constitutional Vitals: Temp Pulse Resp BP Pulse Ox 98.3 F 100 H 18 116/77 96 10/29/21 04:56 10/29/21 04:56 10/29/21 04:56 10/29/21 04:56 10/29/21 10:00 General appearance: Present: no acute distress, well-nourished - EENT Eyes: Present: PERRL, EOM intact ENT: hearing intact, clear oral mucosa, dentition normal - Neck Neck: Present: supple, normal ROM - Respiratory Respiratory effort: normal Respiratory: bilateral: CTA - Cardiovascular Rhythm: regular Heart Sounds: Present: S1 & S2 - Extremities Extremities: no ischemia, pulses intact, pulses symmetrical, No edema, normal temperature, normal color, abnormal (AV fistula in left upper extremity with palpable thrill) Peripheral Pulses: within normal limits - Abdominal General gastrointestinal: soft, non-tender, non-distended, normal bowel sounds - Integumentary Integumentary: Present: clear, warm, dry - Psychiatric Psychiatric: appropriate mood/affect, cooperative, depressed - Neurologic Neurologic: CNII-XII intact, moves all extremities, other (Diffuse lower extremity bone pain) - Allied Health Allied health notes reviewed: nursing HEART Score - HEART Score Troponin: Troponin T 0.419 ng/mL (0.00-0.029) H* 10/29/21 10:55 Results - Labs CBC & Chem 7: 10/28/21 10:49 10/29/21 04:17 Labs: Laboratory Last Values WBC 11.3 K/mm3 (4.5-11.0) H 10/28/21 10:49 RBC 2.92 M/mm3 (3.65-5.03) L 10/28/21 10:49 Hgb 8.2 gm/dl (11.8-15.2) L 10/28/21 10:49 Hct 26.2 % (35.5-45.6) L 10/28/21 10:49 MCV 90 fl (84-94) 10/28/21 10:49 MCH 28 pg (28-32) 10/28/21 10:49 MCHC 31 % (32-34) L 10/28/21 10:49 RDW 20.5 % (13.2-15.2) H 10/28/21 10:49 Plt Count 345 K/mm3 (140-440) 10/28/21 10:49 Lymph % (Auto) 6.3 % (13.4-35.0) L 10/28/21 10:49 [place] % (Auto) 5.7 % (0.0-7.3) 10/28/21 10:49 Eos % (Auto) 0.2 % (0.0-4.3) 10/28/21 10:49 Baso % (Auto) 0.2 % (0.0-1.8) 10/28/21 10:49 Lymph # (Auto) 0.7 K/mm3 (1.2-5.4) L 10/28/21 10:49 [place] # (Auto) 0.6 K/mm3 (0.0-0.8) 10/28/21 10:49 Eos # (Auto) 0.0 K/mm3 (0.0-0.4) 10/28/21 10:49 Baso # (Auto) 0.0 K/mm3 (0.0-0.1) 10/28/21 10:49 Add Manual Diff Complete 10/28/21 10:49 Seg Neutrophils % 87.4 % (40.0-70.0) H 10/28/21 10:49 Seg Neutrophils # 9.9 K/mm3 (1.8-7.7) H 10/28/21 10:49 D-Dimer 1738.75 ng/mlDDU (0-234) H 10/28/21 10:49 Sodium 139 mmol/L (137-145) 10/29/21 04:17 Potassium 4.7 mmol/L (3.6-5.0) D 10/29/21 04:17 Chloride 93.0 mmol/L (98-107) L 10/29/21 04:17 Carbon Dioxide 30 mmol/L (22-30) D 10/29/21 04:17 Anion Gap 21 mmol/L 10/29/21 04:17 BUN 32 mg/dL (9-20) H 10/29/21 04:17 Creatinine 8.6 mg/dL (0.8-1.3) H 10/29/21 04:17 Estimated GFR 9 ml/min 10/29/21 04:17 BUN/Creatinine Ratio 4 % 10/29/21 04:17 Glucose 96 mg/dL (75-100) 10/29/21 04:17 POC Glucose 94 mg/dL (70-105) 10/28/21 15:27 Calcium 9.2 mg/dL (8.4-10.2) 10/29/21 04:17 Phosphorus 6.80 mg/dL (2.5-4.5) H 10/28/21 10:49 Magnesium 2.20 mg/dL (1.7-2.3) 10/28/21 10:49 Total Bilirubin 0.30 mg/dL (0.1-1.2) 10/28/21 10:49 AST 9 units/L (5-40) 10/28/21 10:49 ALT 6 units/L (7-56) L 10/28/21 10:49 Alkaline Phosphatase 383 units/L (35-129) H 10/28/21 10:49 Troponin T 0.419 ng/mL (0.00-0.029) H* 10/29/21 10:55 Total Protein 6.3 g/dL (6.3-8.2) 10/28/21 10:49 Albumin 3.5 g/dL (3.9-5) L 10/28/21 10:49 Albumin/Globulin Ratio 1.3 % 10/28/21 10:49 Triglycerides 96 mg/dL (2-149) 10/29/21 04:17 Cholesterol 119 mg/dL (50-199) 10/29/21 04:17 LDL Cholesterol Direct 54 mg/dL (50-130) 10/29/21 04:17 HDL Cholesterol 41 mg/dL (40-59) 10/29/21 04:17 Cholesterol/HDL Ratio 2.90 % 10/29/21 04:17 Hepatitis A IgM Ab Non-reactive (NonReactive) 10/28/21 16:44 Hep Bs Antigen Non-reactive (Negative) 10/28/21 16:44 Hep B Core IgM Ab Non-reactive (NonReactive) 10/28/21 16:44 Hepatitis C Antibody Non-reactive (NonReactive) 10/28/21 16:44 HIV 1&2 Antibody Rapid Non react (Non React) 10/29/21 10:55 HIV P24 Antigen Non react (Non React) 10/29/21 10:55 Active Medications - Current Medications Current Medications: Generic Name Dose Route Start Last Admin Trade Name Freq PRN Reason Stop Dose Admin Acetaminophen 650 mg 10/28/21 16:00 Acetaminophen 325 Mg Tab PO Q4H PRN Pain MILD(1-3)/Fever >100.5/RUANO Albuterol 2.5 mg 10/28/21 16:00 Albuterol 2.5 Mg/3 Ml Nebu IH Q4HRT PRN Shortness Of Breath Aspirin 325 mg 10/29/21 10:00 10/29/21 10:10 Aspirin 325 Mg Tab PO 325 mg QDAY KRISTINE Administration Atorvastatin Calcium 40 mg 10/29/21 22:00 Atorvastatin 40 Mg Tab PO QHS KRISTINE Hydromorphone HCl 0.5 mg 10/28/21 16:00 10/28/21 20:51 Hydromorphone 0.5 Mg/0.5 Ml Inj IV 0.5 mg Q23H PRN Administration Pain , Severe (7-10) Morphine Sulfate 2 mg 10/29/21 09:30 10/29/21 10:11 Morphine 2 Mg/1 Ml Inj IV 2 mg Q6H PRN Administration Pain, Moderate (4-6) Nicotine 14 mg 10/29/21 10:00 10/29/21 10:10 Nicotine 14 Mg/24 Hr Patch TD 14 mg QDAY KRISTINE Administration Ondansetron HCl 4 mg 10/28/21 16:00 Ondansetron 4 Mg/2 Ml Inj IV Q8H PRN Nausea And Vomiting Oxycodone/Acetaminophen 1 tab 10/28/21 16:00 10/29/21 00:38 Oxycodone /Acetaminophen 5-325mg Tab PO 1 tab Q16H PRN Administration Pain, Moderate (4-6) Sevelamer Carbonate 1,600 mg 10/29/21 16:30 Sevelamer Carbonate 800 Mg Tab PO AC KRISTINE Sodium Chloride 10 ml 10/28/21 16:00 10/29/21 10:10 Sodium Chloride 0.9% 10 Ml Flush Syringe IV 10 ml BID KRISTINE Administration Sodium Chloride 10 ml 10/28/21 16:00 Sodium Chloride 0.9% 10 Ml Flush Syringe IV PRN PRN LINE FLUSH
[2021-10-29] MEDS ORDERED: oxyCODONE /ACETAMINOPHEN 5-325MG TAB PO PRN (16:53)
[2021-10-29 17:25] VITALS: BP 113/71
--- NOTE | 2021-10-30 20:59 | Discharge Summary ---
Providers - Providers Date of Admission: 10/28/21 15:44 Date of discharge: 10/30/21 Attending physician: ARIAS TUCKER MD 10/28/21 14:24 Consult to Case Management [CONS] Stat Services Needed at Discharge: Health And Physical Education Professor Other Notified:: yes Phone number called:: [phone] Was contact made?: Yes If yes, spoke with:: Martha Time called:: 14:28 Additional Physician Instructions: transportation to dialysis 10/29/21 05:59 Consult to Physician [CONS] Routine Comment: Consulting Provider: JESSICA WELLER Physician Instructions: Reason For Exam: Elevated troponin 10/29/21 09:14 Consult to Physician [CONS] Routine Comment: Consulting Provider: TERESA FALLON Physician Instructions: Reason For Exam: Hemodialysis need Primary care physician: SABAS SALEH Hospitalization Reason for admission: Hyperkalemia Condition: Stable Pertinent studies: Reviewed. Procedures: None. Hospital course: The patient is a 31 YO Male with ESRD on HD(T,R,Sa), HTN, Noncompliance, Nicotine Dependence, Cocaine Dependence, SVC Occlusion S/P Stent Placement, PE not taking therapeutic anticoagulation presents to ED for evaluation. Patient reports "I feel drained". Patient states that he experienced fatigue, g eneralized weakness over the past 1 day after ingestion of cocaine. Patient also acknowledges missed dialysis sessions. EMS was notified and upon arrival the patient was found to be in distress and subsequent transported to [facility] for further care and evaluation of the aforementioned symptoms. The patient was seen and evaluated in the emergency department. All lab and imaging studies reviewed. Patient found to have end-stage renal disease in need of urgent dialysis. Patient also found to have hyperkalemia without EKG changes, metabolic acidosis, and anemia of chronic disease. Patient admitted to medical floor due to increased risk of worsening symptoms. Nephrology team consulted in ED for urgent dialysis. Patient received hemodialysis x2. Patient was counseled about the importance of cessation of heroin use, and the patient expressed understanding. Patient left AMA. Disposition: LEFT AGAINST MEDICAL ADVICE Final Discharge Diagnosis (Prints w/discharge instructions): Hyperkalemia, ESRD on hemodialysis, anemia of chronic disease, nicotine dependence, metabolic acidosis, volume overload, heroin usage Time spent for discharge: 45 min Core Measure Documentation - Palliative Care Palliative Care/ Comfort Measures: Not Applicable - Core Measures Any of the following diagnoses?: none Exam - Physical Exam Narrative exam: Patient left AMA. - Constitutional Vitals: Temp Pulse Resp BP Pulse Ox 98.9 F 109 H 18 113/71 100 10/29/21 16:20 10/29/21 16:20 10/29/21 17:51 10/29/21 16:20 10/29/21 16:20 Plan Activity: advance as tolerated Diet: renal Additional Instructions: The patient is a 31 YO Male with ESRD on HD(T,R,Sa), HTN, Noncompliance, Nicotine Dependence, Cocaine Dependence, SVC Occlusion S/P Stent Placement, PE not taking therapeutic anticoagulation presents to ED for evaluation. Patient reports "I feel drained". Patient states that he experienced fatigue, generalized weakness over the past 1 day after ingestion of cocaine. Patient also acknowledges missed dialysis sessions. EMS was notified and upon arrival the patient was found to be in distress and subsequent transported to [facility] for further care and evaluation of the aforementioned symptoms. The patient was seen and evaluated in the emergency department. All lab and imaging studies reviewed. Patient found to have end-stage renal disease in need of urgent dialysis. Patient also found to have hyperkalemia without EKG changes, metabolic acidosis, and anemia of chronic disease. Patient admitted to medical floor due to increased risk of worsening symptoms. Nephrology team consulted in ED for urgent dialysis. Patient received hemodialysis x2. Patient was counseled about the importance of cessation of heroin use, and the patient expressed understanding. Patient left AMA. Care Plan Goals: Patient left AMA. Assessment: The patient is a 31 YO Male with ESRD on HD(T,R,Sa), HTN, Noncompliance, Nicotine Dependence, Cocaine Dependence, SVC Occlusion S/P Stent Placement, PE not taking therapeutic anticoagulation presents to ED for evaluation. Patient reports "I feel drained". Patient states that he experienced fatigue, generalized weakness over the past 1 day after ingestion of cocaine. Patient also acknowledges missed dialysis sessions. EMS was notified and upon arrival the patient was found to be in distress and subsequent transported to [facility] for further care and evaluation of the aforementioned symptoms. The patient was seen and evaluated in the emergency department. All lab and imaging studies reviewed. Patient found to have end-stage renal disease in need of urgent dialysis. Patient also found to have hyperkalemia without EKG changes, metabolic acidosis, and anemia of chronic disease. Patient admitted to medical floor due to increased risk of worsening symptoms. Nephrology team consulted in ED for urgent dialysis. Patient received hemodialysis x2. Patient was counseled about the importance of cessation of heroin use, and the patient expressed understanding. Patient left AMA. Follow up with: SABAS SALEH MD [Primary Care Provider] - 3-5 Days
== END 2021-10-29 19:10 | disposition left against medical advice (07) | DRG 640 ==
LOC: ED 03:03 → 3A 15:44
PROVIDERS: ADMIT Internal Medicine; ATTEND Student in an Organized Health Care Education/Training Program
PROC: 5A1D70Z Performance of Urinary Filtration, Intermittent, Less than 6 Hours Per Day (ICD-10-PCS; principal; 2021-10-28)
PROC: 5A1D70Z Performance of Urinary Filtration, Intermittent, Less than 6 Hours Per Day (ICD-10-PCS; 2021-10-29)
DX: E87.5 Hyperkalemia (principal); N18.6 End stage renal disease; I21.A1 Myocardial infarction type 2; E87.70 Fluid overload, unspecified; I12.0 Hypertensive chronic kidney disease with stage 5 chronic kidney disease or end stage renal disease; E87.2 Acidosis; Z99.2 Dependence on renal dialysis; F14.29 Cocaine dependence with unspecified cocaine-induced disorder; D53.9 Nutritional anemia, unspecified; Z91.19 Patient's noncompliance with other medical treatment and regimen; D63.1 Anemia in chronic kidney disease; F17.213 Nicotine dependence, cigarettes, with withdrawal; E83.39 Other disorders of phosphorus metabolism; R77.8 Other specified abnormalities of plasma proteins; I45.6 Pre-excitation syndrome; F11.23 Opioid dependence with withdrawal; Z82.49 Family history of ischemic heart disease and other diseases of the circulatory system; Z53.29 Procedure and treatment not carried out because of patient's decision for other reasons
CPT/HCPCS: 36415; 71045; 80048; 80053; 80061; 80074; 82962; 83735; 84100; 84484; 85025; 85379; 87806; 93005; 93306; 93970; 96374; 96375; 99285; G0378; J3490; Q9967; C8929; J0610; J1170; J1815; J2270